=== PATIENT | female | born 1965 | race Hispanic/Latino ===

== ENCOUNTER 2018-01-13 14:37 | Inpatient (IN) | payer OTHER ==
--- OUTSIDE RECORDS SUMMARY | 2018-01-13 14:39 | XMS REPORT ---
:1965 Author Organization e[employer]Works Care Team Providers Name Role Phone Tony Carol Provider Role Unavailable Allergies, Adverse Reactions, Alerts Substance Reaction Event Type PCN Info Not Available Drug Allergy Procardia XL Info Not Available Drug Allergy Lisinopril Info Not Available Drug Allergy Problems Problem Type Condition Code Onset Dates Condition Status Problem Iron deficiency anemia D50.9 Active Problem Constipation K59.00 Active Problem DJD (degenerative joint disease) M19.90 Active Problem Intractable migraine with aura with G43.111 Active status migrainosus Problem Degeneration of lumbosacral M51.37 Active intervertebral disc Problem Primary insomnia F51.01 Active Problem Obesity E66.9 Active Problem Diabetic neuropathy E11.40 Active Problem Essential hypertension I10 Active Problem Hyperlipidemia E78.5 Active Assessment Pharyngitis, unspecified etiology J02.9 Active Problem Insomnia, unspecified G47.00 Active Problem shelter current use of insulin Z79.4 Active Problem Chronic back pain M54.9 Active Problem Type 2 diabetes mellitus without E11.9 Active complications Problem Depression with anxiety F41.8 Active Medications Medication Code Code Instructions Start End Status Dosage System Date Date [place] [facility] 80190989298 10-325 MG Active 1 tablet as Orally every 6 needed hrs Rosuvastatin [facility] 59237216393 10 MG Orally Active 1 tablet Calcium Once a day Invokana [facility] 87670053532 300 MG orally Active 1 tab once daily BEFORE BREAKFAST Duloxetine HCl [facility] 00860076456 60 MG Orally Active 1 capsule twice a day Topamax [facility] 14634976297 100 MG Orally Active 1 tablet Twice a day Carvedilol ND 77983763451 25 MG Orally Active as directed twice a day NovoLog Flexpen [facility] 64937382425 100U/ML Active INJECT 10 UNITS SUBCUTANEOUSLY THREE TIMES DAILY Metformin HCl [facility] 97208127916 1000 MG Orally Active 1 tablet with Twice a day meals Basaglar [facility] 78915841129 100 UNIT/ML Active 80 units as KwikPen Subcutaneous directed once a day ZyrTEC ND 0 Active not defined Clonidine HCl [facility] 47322858646 0.3 MG Orally Active 1 tablet three times a day Trazodone HCl [facility] 62916636303 50 MG Orally November Active 1 tablet at Once a day , bedtime as 2018 needed Linzess [facility] 63455675186 290MCG orally Active one tab once a day PredniSONE ND 51996667944 20 MG Orally December Active 1 tablet BID 2017 Results Name Result Date Reference Range Unit Abnormality Flag STREP A RAPID ----Result Negative [id number] Summary Purpose eClinicalWorks Submission
--- OUTSIDE RECORDS SUMMARY | 2018-01-13 14:39 | XMS REPORT ---
:1965 Author Organization [employer]Works Care Team Providers Name Role Phone Santana, Na Provider Role Unavailable Allergies, Adverse Reactions, Alerts Substance Reaction Event Type PCN Info Not Available Drug Allergy Procardia XL Info Not Available Drug Allergy Lisinopril Info Not Available Drug Allergy Problems Problem Type Condition Code Onset Dates Condition Status Problem Diabetic neuropathy E11.40 Active Problem Hyperlipidemia E78.5 Active Problem Obesity E66.9 Active Problem Cough productive of yellow sputum R05 Active Assessment Cough productive of yellow sputum R05 Active Problem Wheezing on inspiration R06.2 Active Assessment Wheezing on inspiration R06.2 Active Problem Acute bronchitis, unspecified J20.9 Active organism Problem Degeneration of lumbosacral M51.37 Active intervertebral disc Problem Essential hypertension I10 Active Problem Intractable migraine with aura with G43.111 Active status migrainosus Problem Primary insomnia F51.01 Active Problem Type 2 diabetes mellitus without E11.9 Active complications Problem Insomnia, unspecified G47.00 Active Assessment Acute bronchitis, unspecified J20.9 Active organism Problem Depression with anxiety F41.8 Active Problem Iron deficiency anemia D50.9 Active Problem longterm current use of insulin Z79.4 Active Problem DJD (degenerative joint disease) M19.90 Active Problem Chronic back pain M54.9 Active Problem Constipation K59.00 Active Medications Medication Code Code Instructions Start End Status Dosage System Date Clonidine HCl [facility] 06628700755 0.3 MG Orally Active 1 tablet three times a day Azithromycin [facility] 86313971648 500 MG Orally December Active as directed once a day 2017 PredniSONE [place] 15156009482 20 MG Orally December Active 1 tablet BID 2017 Duloxetine HCl [facility] 18959720611 60 MG Orally Active 1 capsule twice a day Basaglar [facility] 21069069527 100 UNIT/ML Active 80 units as KwikPen Subcutaneous directed once a day Doxycycline ND 31754819545 100 MG Orally December Active 1 capsule Hyclate twice a day 2017 [place] [facility] 98936905482 10-325 MG Active 1 tablet as Orally every 6 needed hrs Topamax [facility] 17169938258 100 MG Orally Active 1 tablet Twice a day Linzess [facility] 74907479866 290MCG orally Active one tab once a day Trazodone HCl [facility] 25478875424 50 MG Orally November Active 1 tablet at Once a day 22, bedtime as 2018 needed Metformin HCl [facility] 99680187363 1000 MG Orally Active 1 tablet with Twice a day meals Invokana [facility] 63070741961 300 MG orally Active 1 tab once daily BEFORE BREAKFAST Albuterol [facility] 01196666762 108 (90 Base) December Active 2 puffs as Sulfate MCG/ACT 10, needed Inhalation 2017 every 6 hrs ZyrTEC [facility] 09817347267 Active not defined Carvedilol [facility] 62525812953 25 MG Orally Active as directed twice a day NovoLog Flexpen [facility] 18651416575 100U/ML Active INJECT 10 UNITS SUBCUTANEOUSLY THREE TIMES DAILY Rosuvastatin [facility] 02129206811 10 MG Orally Active 1 tablet Calcium Once a day Results No Known Results Summary Purpose eClinicalWorks Submission
--- OUTSIDE RECORDS SUMMARY | 2018-01-13 14:39 | XMS REPORT ---
:1965 Author Organization [employer]Works Care Team Providers Name Role Phone Santana, Na Provider Role Unavailable Allergies No Known Allergies Problems Problem Type Condition Code Onset Dates Condition Status Problem Diabetic neuropathy E11.40 Active Problem Hyperlipidemia E78.5 Active Problem Obesity E66.9 Active Problem Cough productive of yellow sputum R05 Active Problem Wheezing on inspiration R06.2 Active Problem Acute bronchitis, unspecified J20.9 Active organism Problem Degeneration of lumbosacral M51.37 Active intervertebral disc Problem Essential hypertension I10 Active Problem Intractable migraine with aura with G43.111 Active status migrainosus Problem Primary insomnia F51.01 Active Problem Type 2 diabetes mellitus without E11.9 Active complications Problem Insomnia, unspecified G47.00 Active Problem Depression with anxiety F41.8 Active Problem Iron deficiency anemia D50.9 Active Problem terminal manager 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
--- OUTSIDE RECORDS SUMMARY | 2018-01-13 14:39 | XMS REPORT ---
:1965 Author Organization e[employer]Works Care Team Providers Name Role Phone Santana, Na Provider Role Unavailable Allergies, Adverse Reactions, Alerts Substance Reaction Event Type PCN Info Not Available Drug Allergy Procardia XL Info Not Available Drug Allergy Lisinopril Info Not Available Drug Allergy Problems Problem Type Condition Code Onset Dates Condition Status Assessment Intractable migraine with aura with G43.111 Active status migrainosus Problem Chronic back pain M54.9 Active Assessment Primary insomnia F51.01 Active Problem Depression with anxiety F41.8 Active Assessment Wrist pain, right M25.531 Active Problem Iron deficiency anemia D50.9 Active Problem Constipation K59.00 Active Problem DJD (degenerative joint disease) M19.90 Active Problem Intractable migraine with aura with G43.111 Active status migrainosus Problem Degeneration of lumbosacral M51.37 Active intervertebral disc Assessment Depression with anxiety F41.8 Active Assessment Constipation K59.00 Active Problem Primary insomnia F51.01 Active Assessment Diabetic neuropathy E11.40 Active Problem Obesity E66.9 Active Problem Diabetic neuropathy E11.40 Active Problem Essential hypertension I10 Active Problem Hyperlipidemia E78.5 Active Assessment snf current use of insulin Z79.4 Active Assessment Type 2 diabetes mellitus without E11.9 Active complications Assessment Hyperlipidemia E78.5 Active Assessment Essential hypertension I10 Active Problem Insomnia, unspecified G47.00 Active Problem snf current use of insulin Z79.4 Active Problem Type 2 diabetes mellitus without E11.9 Active complications Medications Medication Code Code Instructions Start End Status Dosage System Date Date Invokana [facility] 37830732420 300 mg Active not defined Trazodone HCl ND 18599126294 50 MG Orally November Active 1 tablet at Once a day 22, bedtime as [address] [facility] 75616398236 290MCG orally Active one tab once a day Clonidine HCl ND 74104840236 0.3 MG Orally Active 1 tablet three times a day Metformin HCl ND 08563641702 1000 MG Orally Active 1 tablet with Twice a day meals Topiramate [facility] 63366518093 100MG Active TAKE ONE TABLET BY MOUTH TWICE DAILY NovoLog Flexpen [facility] 48410357157 100U/ML Active INJECT 10 UNITS SUBCUTANEOUSLY THREE TIMES DAILY Basaglar [facility] 30749557887 100 UNIT/ML Active 80 units as KwikPen Subcutaneous directed once a day Carvedilol [facility] 22297973716 25 MG Orally Active as directed twice a day Invokana [facility] 17680208157 300 MG orally Active 1 tab once daily BEFORE BREAKFAST Topamax [facility] 29127726347 100 MG Orally Active 1 tablet Twice a day Duloxetine HCl [facility] 79956980388 60 MG Orally Active 1 capsule twice a day [place] [facility] 06770492049 10-325 MG Active 1 tablet as Orally every 6 needed [address] [facility] 06787585646 100 UNIT/ML Active not defined Subcutaneous Rosuvastatin [facility] 76466577789 10 MG Orally Active 1 tablet Calcium Once a day Results No Known Results Summary Purpose eClinicalWorks Submission
--- OUTSIDE RECORDS SUMMARY | 2018-01-13 14:39 | XMS REPORT ---
:1965 Author Organization eClinicalWorks Care Team Providers Name Role Phone Santana, Na Provider Role Unavailable Allergies, Adverse Reactions, Alerts Substance Reaction Event Type PCN Info Not Available Drug Allergy Procardia XL Info Not Available Drug Allergy Lisinopril Info Not Available Drug Allergy Problems Problem Type Condition Code Onset Dates Condition Status Problem longterm current use of insulin Z79.4 Active Problem Depression with anxiety F41.8 Active Problem Chronic back pain M54.9 Active Problem Hyperlipidemia E78.5 Active Assessment Screening mammogram, encounter for Z12.31 Active Problem Obesity E66.9 Active Assessment Chronic back pain M54.9 Active Problem Essential hypertension I10 Active Problem DJD (degenerative joint disease) M19.90 Active Problem Iron deficiency anemia D50.9 Active Problem Diabetic neuropathy E11.40 Active Problem Constipation K59.00 Active Assessment Depression with anxiety F41.8 Active Assessment Hyperlipidemia E78.5 Active Assessment Diabetic neuropathy E11.40 Active Assessment Constipation K59.00 Active Assessment 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 Problem Degeneration of lumbosacral M51.37 Active intervertebral disc Assessment Essential hypertension I10 Active Problem Type 2 diabetes mellitus without E11.9 Active complications Assessment Type 2 diabetes mellitus without E11.9 Active complications Problem Insomnia, unspecified G47.00 Active Medications Medication Code Code Instructions Start End Status Dosage System Date Duloxetine HCl [facility] 27923198492 60 MG Orally August Active 1 capsule Once a day 2017 [place] [facility] 63030491283 10-325 MG Orally Active 1 tablet as every 6 hrs needed Basaglar ND 34529201719 100 UNIT/ML August Active 80 units as KwikPen Subcutaneous once a day 2017 NovoLog [facility] 84661921385 100U/ML Active INJECT 10 UNITS Flexpen SUBCUTANEOUSLY THREE TIMES DAILY Linzess [facility] 79339752656 290MCG orally Sept Active one tab once a day 2017 Topiramate [facility] 89790331460 100MG Active TAKE ONE TABLET BY MOUTH TWICE DAILY Metformin HCl ND 45334563259 500 MG Orally Inactive 1 tablet with Twice a day meals Rosuvastatin [facility] 32923647403 10 MG Orally August Active 1 tablet Calcium Once a day 2017 Clonidine HCl [facility] 25127111286 0.3 MG Orally Active 1 tablet three times a day Carvedilol [facility] 19446844796 25 MG Orally August Active as directed twice a day 2017 Invokana [facility] 45697871605 300 mg Active not defined Metformin HCl [facility] 88549013432 1000 MG Orally August Active 1 tablet with Twice a day , 2017 Toujeo [facility] 33561412694 300u/ml Inactive not defined SoloStar subcutaneously once daily NovoLog [facility] 93818876385 100 UNIT/ML Active not defined Subcutaneous Topamax [facility] 88529520806 100 MG Orally Active 1 tablet Twice a day Invokana [facility] 62917690198 300 MG orally Sept Active 1 tab once daily 18, BEFORE BREAKFAST 2017 Results No Known Results Summary Purpose eClinicalWorks Submission
[2018-01-13 15:52] LABS: Absolute Lymphocytes (CBC) 2.8 K/uL (0.7-4.9); Absolute Neutrophil 8.8 K/uL (1.8-8.0); Basophils % 0.7 % (0-1.3); Eosinophils % 2.1 % (0-4.4); Hematocrit 35.5 % (36.0-45.0); Lymphocytes % 21.6 % (15.3-44.8); MCH 24.8 pg (27.0-35.0); MPV 9.1 fL (7.6-11.3); Monocytes % 7.7 % (3.3-12.3); RBC Red Blood Cell Count 4.55 M/uL (3.86-4.86)
[2018-01-13] MEDS ORDERED: ASPIRIN 81 MG CHEWABLE TABLET ONE (16:22)
[2018-01-13 16:26] LABS: Protime INR 0.98
[2018-01-13 16:27] LABS: ALT/SGPT 19 U/L (12-78); AST/SGOT 13 U/L (15-37); Alkaline Phosphatase 146 U/L (45-117); BUN Blood Urea Nitrogen 18 mg/dL (7-18); Bicarbonate 25 mmol/L (21-32); Bilirubin Direct < 0.1 mg/dL (0-0.2); Bilirubin Total 0.3 mg/dL (0.2-1.0); CKMB Creatine Kinase MB 1.1 ng/mL (0.3-3.6); Creatine Phosphokinase 41 U/L (26-192); Glucose Level 160 mg/dL (74-106); Magnesium 2.1 mg/dL (1.8-2.4); NT PRO-BNP 196 pg/mL (<125); Potassium 3.8 mmol/L (3.5-5.1); Protein, Total 6.6 g/dL (6.4-8.2); Sodium Level 141 mmol/L (136-145)
--- NOTE | 2018-01-13 16:27 | RAD REPORT ---
EXAM DESCRIPTION: RAD - Chest Pa And Lat (2 Views) - 01/13/2018 4:18 pm CLINICAL HISTORY: Cough;Chest pain Chest pain. COMPARISON: CHEST PA AND LAT 2 VIEW dated 06/04/2015; RAD CHEST PA AND LAT (2 VIEWS) dated 02/08/2013 FINDINGS: The lungs are clear. The heart is normal in size. No displaced fractures. IMPRESSION: No acute or concerning finding suspected.
[2018-01-13 16:43] LABS: Urine Blood NEGATIVE (NEG); Urine Glucose 2+ (NEG); Urine Protein NEGATIVE (NEG); Urine pH 7.5 (5.0-7.0)
--- NOTE | 2018-01-13 16:53 | EDPHYS ---
Physician Documentation [facility] Name: Luz Nick Age: 52 yrs Sex: Female : 1965 Arrival Date: 01/13/2018 Time: 14:41 Bed 23 Private MD: Irish Santana ED Physician Bo Kinney HPI: 01/13 15:30 This 52 yrs old Female presents to ER via Ambulatory with complaints of pm1 Possible Pneumonia. 15:30 The patient or guardian reports chest pain that is located primarily in the anterior pm1 aspect of right upper chest and anterior aspect of left upper chest. Onset: 2 week(s) ago. The pain does not radiate. Associated signs and symptoms: Pertinent positives: cough, shortness of breath, Pertinent negatives: abdominal pain, headache, nausea, near syncope, palpitations, vomiting. The chest pain is described as Tightness. Duration: The patient or guardian reports multiple episodes, that have now resolved, with exertion and occasionally while patient sitting at rest. Modifying factors: The symptoms are alleviated by rest, the symptoms are aggravated by exertion, walking. Severity of pain: in the emergency department the pain is a 0 / 10. The patient has not experienced similar symptoms in the past. The patient has been recently seen by a physician: the patient's primary care provider, Patient seen 1 week ago by her PCP and diagnosed with bronchitis. Patient was placed on abx therapy but without improvement. Patient was instructed to report to the ER for evalution when she contacted her PCP today to rule out the possibility of pneumonia. Patient has been having chest pain and cough for 2 weeks. Cough is dry. No fevers. Chest pain has been daily since onset two week ago. chest pain with shortness of breath with exertion improved with rest. Has been having chest pain without exertion and without coughing. Chest pain worse for the past 3-4 days. 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 - Social history:: Smoking status: Patient/guardian denies using tobacco, Patient/guardian denies using alcohol. - Ebola Screening: : Patient negative for fever greater than or equal to 101.5 degrees Fahrenheit, and additional compatible Ebola Virus Disease symptoms Patient denies exposure to infectious person Patient denies travel to an Ebola-affected area in the 21 days before illness onset. ROS: 15:30 Constitutional: Negative for fever, chills, and weight loss, Eyes: Negative for injury, pm1 pain, redness, and discharge, ENT: Negative for injury, pain, and discharge, Neck: Negative for injury, pain, and swelling. 15:30 Abdomen/GI: Negative for abdominal pain, nausea, vomiting, diarrhea, and constipation, Back: Negative for injury and pain, : Negative for injury, bleeding, discharge, and swelling, MS/Extremity: Negative for injury and deformity, Skin: Negative for injury, rash, and discoloration, Neuro: Negative for headache, weakness, numbness, tingling, and seizure. 15:30 Cardiovascular: Positive for chest pain, Negative for edema, orthopnea, palpitations. 15:30 Respiratory: Positive for shortness of breath, on exertion. Exam: 15:30 Constitutional: This is a well developed, well nourished patient who is awake, alert, pm1 and in no acute distress. Head/Face: Normocephalic, atraumatic. Eyes: Pupils equal round and reactive to light, extra-ocular motions intact. Lids and lashes normal. Conjunctiva and sclera are non-icteric and not injected. Cornea within normal limits. Periorbital areas with no swelling, redness, or edema. ENT: Nares patent. No nasal discharge, no septal abnormalities noted. Tympanic membranes are normal and external auditory canals are clear. Oropharynx with no redness, swelling, or masses, exudates, or evidence of obstruction, uvula midline. Mucous membranes moist. Neck: Trachea midline, no thyromegaly or masses palpated, and no cervical lymphadenopathy. Supple, full range of motion without nuchal rigidity, or vertebral point tenderness. No Meningismus. Chest/axilla: Normal chest wall appearance and motion. Nontender with no deformity. No lesions are appreciated. Cardiovascular: Regular rate and rhythm with a normal S1 and S2. No gallops, murmurs, or rubs. Normal PMI, no JVD. No pulse deficits. Respiratory: Lungs have equal breath sounds bilaterally, clear to auscultation and percussion. No rales, rhonchi or wheezes noted. No increased work of breathing, no retractions or nasal flaring. 15:30 Abdomen/GI: Soft, non-tender, with normal bowel sounds. No distension or tympany. No guarding or rebound. No evidence of tenderness throughout. Back: No spinal tenderness. No costovertebral tenderness. Full range of motion. Skin: Warm, dry with normal turgor. Normal color with no rashes, no lesions, and no evidence of cellulitis. MS/ Extremity: Pulses equal, no cyanosis. Neurovascular intact. Full, normal range of motion. 15:30 ECG was reviewed by the Attending Physician. ECG changes present from prior ECG. Prior ECG 02/08/2013 NSR, normal ECG. Changes are present in V!-V3. Q waves in V1 and V2 15:30 Neuro: Orientation: is normal, Motor: is normal, moves all fours, Sensation: is normal, no obvious gross deficits. Vital Signs: 14:49 BP 104 / 73; Pulse 77; Resp 18; Temp 98.1(O); Pulse Ox 96% on R/A; Weight 98.43 kg; hj Height 5 ft. 8 in. (172.72 cm); Pain 7/10; 15:07 BP 147 / 77; Pulse 86; Resp 18; Pulse Ox 100% on R/A; mg2 16:24 BP 133 / 83; Pulse 83; Resp 18; Pulse Ox 97% on R/A; Pain 0/10; mg2 14:49 Body Mass Index 32.99 (98.43 kg, 172.72 cm) MDM: 15:08 Patient medically screened. [facility] 16:47 Data reviewed: vital signs. Data interpreted: Pulse oximetry: on room air is 97 %. pm1 Interpretation: normal. Counseling: I had a detailed discussion with the patient and/or guardian regarding: the historical points, exam findings, and any diagnostic results supporting the discharge/admit diagnosis, lab results, radiology results, the need for further work-up and treatment in the hospital. 16:47 Physician consultation: Tasha Melgar MD was called at 16:48, was contacted at 16:48, pm1 regarding admission, patient's condition, and will see patient. 16:56 ED course: Patient with onset of chest pain 2 weeks ago. Patient has had chest pain pm1 daily since with onset. Chest pain comes and goes as a tightness across her chest. Chest pain occurs with light exertion, walking and has been occurring at rest also. Her chest pain has been worse for the past 3-4 days. Impression: NSTEMI vs unstable angina. 01/13 15:24 Order name: Basic Metabolic Panel; Complete Time: 16:30 pm01/13 15:24 Order name: CBC with Diff; Complete Time: 16:15 pm01/13 15:24 Order name: Ckmb; Complete Time: 16:30 pm01/13 15:24 Order name: CPK; Complete Time: 16:30 pm01/13 15:24 Order name: LFT's; Complete Time: 16:30 pm01/13 15:24 Order name: Magnesium; Complete Time: 16:30 pm01/13 15:24 Order name: NT PRO-BNP; Complete Time: 16:30 pm1 01/13 15:24 Order name: PT-INR; Complete Time: 16:35 pm1 01/13 15:24 Order name: Ptt, Activated; Complete Time: 16:35 pm01/13 15:24 Order name: Troponin (emerg Dept Use Only); Complete Time: 16:15 pm01/13 15:24 Order name: Blood Culture Adult (2) pm1 01/13 16:15 Order name: Urine Dipstick--Ancillary (enter results); Complete Time: 16:53 bd 01/13 16:57 Order name: Troponin I EDPA 01/13 16:57 Order name: Troponin I EDPA 01/13 14:51 Order name: EKG; Complete Time: 14:52 hj 01/13 15:24 Order name: Urine Test (obtain specimen); Complete Time: 16:13 pm01/13 15:24 Order name: Cardiac monitoring; Complete Time: 15:43 pm1 01/13 15:24 Order name: EKG - Nurse/Tech; Complete Time: 15:43 pm01/13 15:24 Order name: IV Saline Lock; Complete Time: 15:43 pm1 01/13 15:24 Order name: Labs collected and sent; Complete Time: 15:43 pm1 01/13 15:24 Order name: Chest Pa And Lat (2 Views) XRAY; Complete Time: 16:30 pm1 01/13 16:57 Order name: CONS Physician Consult [facility] 01/13 16:57 Order name: Heart Healthy [facility] 01/13 16:57 Order name: Troponin I [facility] 01/13 16:57 Order name: Troponin I [facility] 01/13 16:59 Order name: Echo with Doppler EDPA 01/13 16:59 Order name: Hemoglobin A1c EDPA 01/13 16:59 Order name: Lipid Profile EDPA 01/13 15:24 Order name: O2 Per Protocol; Complete Time: 15:43 pm1 01/13 15:24 Order name: O2 Sat Monitoring; Complete Time: 15:43 pm1 01/13 15:24 Order name: Urine Dipstick-Ancillary (obtain specimen); Complete Time: 16:13 pm1 Administered Medications: 16:24 Drug: Aspirin Chewable Tablet 324 mg Route: PO; mg2 16:59 Drug: Lovenox 1 mg/kg Route: Sub-Q; Site: right upper abdomen; mg2 Disposition: 01/13/18 16:52 Hospitalization ordered by Tasha Melgar for Inpatient Admission. Preliminary diagnosis is Non-ST elevation (NSTEMI) myocardial infarction. - Bed requested for Telemetry/MedSurg (Inpatient). - Status is Inpatient Admission. mg2 - Condition is Stable. - Problem is new. - Symptoms have improved. UTI on Admission? No Addendum: 01/19/2018 15:13 Co-signature as Attending Physician, Bo Kinney MD I agree with the assessment and c rodriguez plan of care. 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 Preliminary bd diagnosis is Non-ST elevation (NSTEMI) myocardial infarction. Bed requested for Telemetry/MedSurg (Inpatient). Status is Inpatient Admission. Condition is Stable. Problem is new. Symptoms have improved. UTI on Admission? No. pm1 17:41 17:10 01/13/2018 16:52 Hospitalization Ordered by Tasha Melgar MD for Inpatient mg2 Admission. Preliminary diagnosis is Non-ST elevation (NSTEMI) myocardial infarction. Bed requested for Telemetry/MedSurg (Inpatient). Status is Inpatient Admission. Condition is Stable. Problem is new. Symptoms have improved. UTI on Admission? No. bd
--- NOTE | 2018-01-13 16:53 | ER ---
Nurse's Notes [facility] Name: uLz Nick Age: 52 yrs Sex: Female : 1965 Arrival Date: 01/13/2018 Time: 14:41 Bed 23 Private MD: Irish Santana Diagnosis: Non-ST elevation (NSTEMI) myocardial infarction Presentation: 01/13 14:45 Presenting complaint: Patient states: last week i went to my PCP, told me i have hj bronchitis, Rx with antibiotics and almost half of it was taken, but im not getting better and its getting worse, my chest hurts and still have cough, non productive; denies fever and chills; reports headache;. Transition of care: patient was not received from another setting of care. Onset of symptoms was January 13, 2018. Risk Assessment: Do you want to hurt yourself or someone else? Patient reports no desire to harm self or others. Initial Sepsis Screen: Does the patient meet any 2 criteria? No. Patient's initial sepsis screen is negative. Does the patient have a suspected source of infection? No. Patient's initial sepsis screen is negative. Care prior to arrival: None. 14:45 Method Of Arrival: Ambulatory 14:45 Acuity: GORDY 3 hj Triage Assessment: 14:48 General: Appears in no apparent distress. uncomfortable, Behavior is calm, cooperative, hj appropriate for age. Pain: Complains of pain in chest. CRANE MAN: 14:50 LMP N/A - Post-menopause hj Historical: - Allergies: 14:48 No Known Allergies; hj - Home Meds: 14:48 Metformin Oral [Active]; Novolog Sub-Q [Active]; Coreg Oral [Active]; hj 14:49 Clonidine Oral [Active]; Invokana oral oral [Active]; Linzess oral oral [Active]; hj - PMHx: 14:48 Diabetes - NIDDM; Hypertension; Migraines; hj - PSHx: 14:48 ; Cholecystectomy; hj - Immunization history:: Adult Immunizations up to date. - Social history:: Smoking status: Patient/guardian denies using tobacco, Patient/guardian denies using alcohol. - Ebola Screening: : Patient negative for fever greater than or equal to 101.5 degrees Fahrenheit, and additional compatible Ebola Virus Disease symptoms Patient denies exposure to infectious person Patient denies travel to an Ebola-affected area in the 21 days before illness onset. Screenin:51 Abuse screen: Denies threats or abuse. Denies injuries from another. Nutritional hj screening: No deficits noted. Tuberculosis screening: No symptoms or risk factors identified. Fall Risk None identified. Assessment: 15:06 General: Appears in no apparent distress. comfortable, Behavior is calm, cooperative. mg2 Neuro: Level of Consciousness is awake, alert, obeys commands, Oriented to person, place, time. Cardiovascular: Capillary refill < 3 seconds Patient's skin is warm and dry. Respiratory: Reports cough that is. GI: No signs and/or symptoms were reported involving the gastrointestinal system. : No signs and/or symptoms were reported regarding the genitourinary system. EENT: No signs and/or symptoms were reported regarding the EENT system. Derm: Skin is intact, Skin is pink, warm \T\ dry. normal. Musculoskeletal: No signs and/or symptoms reported regarding the musculoskeletal system. 16:25 Reassessment: Patient appears in no apparent distress at this time. Patient and/or mg2 family updated on plan of care and expected duration. Pain level reassessed. Patient is alert, oriented x 3, equal unlabored respirations, skin warm/dry/pink. Vital Signs: 14:49 BP 104 / 73; Pulse 77; Resp 18; Temp 98.1(O); Pulse Ox 96% on R/A; Weight 98.43 kg; hj Height 5 ft. 8 in. (172.72 cm); Pain 7/10; 15:07 BP 147 / 77; Pulse 86; Resp 18; Pulse Ox 100% on R/A; mg2 16:24 BP 133 / 83; Pulse 83; Resp 18; Pulse Ox 97% on R/A; Pain 0/10; mg2 14:49 Body Mass Index 32.99 (98.43 kg, 172.72 cm) ED Course: 14:41 Patient arrived in ED. sb2 14:41 Irish Santana MD is Private Physician. sb2 14:47 Triage completed. hj 14:48 Arm band placed on left wrist. hj 14:51 Patient has correct armband on for positive identification. Bed in low position. Call light in reach. Side rails up X 1. Adult w/ patient. 15:05 EKG done, by blood bank technologist. reviewed by Pete Murguia MD. sm3 15:06 Alberto Castro, MANINDER is Primary Nurse. mg2 15:07 Jace Gr NP is PHCP. pm1 15:07 Bo Kinney MD is Attending Physician. pm1 15:48 Inserted saline lock: 20 gauge in right antecubital area, using aseptic technique. mg2 Blood collected. 16:14 Patient moved to radiology via wheelchair. mh1 16:15 Chest Pa And Lat (2 Views) XRAY In Process Unspecified. EDMS 16:15 X-ray completed. Patient tolerated procedure well. mh1 16:16 Patient moved back from radiology. mh1 16:52 Tasha Melgar MD is Hospitalizing Provider. pm1 17:24 No provider procedures requiring assistance completed. Patient admitted, IV remains in mg2 place. Administered Medications: 16:24 Drug: Aspirin Chewable Tablet 324 mg Route: PO; mg2 16:59 Drug: Lovenox 1 mg/kg Route: Sub-Q; Site: right upper abdomen; mg2 Outcome: 16:52 Decision to Hospitalize by Provider. pm1 17:22 Admitted to Tele accompanied by tech, via wheelchair, room 408, with chart, Report mg2 called to Nurse Betty 17:22 Condition: stable 17:22 Instructed on the need for admit, Demonstrated understanding of instructions. 17:41 Patient left the ED. mg2 Signatures: Dispatcher [employer] EDMS Martha Young 1 Norberto Silvestre RN RN hj Jace Gr NP SOLAR INSTALLATION SUPERVISOR pm1 Roxie Tao 2 Alberto Castro RN RN [facility] [place] Julissa Herzog sm3 Corrections: (The following items were deleted from the chart) 14:57 14:49 Pulse 77bpm; Resp 18bpm; Pulse Ox 96% RA; Temp 98.1F Oral; 98.43 kg; Height 5 ft. hj 8 in.; BMI: 32.9; Pain 7/10; hj
[2018-01-13] MEDS ORDERED: ACETAMINOPHEN 500 MG TAB PO PRN (16:55)
[2018-01-13] MEDS ORDERED: ONDANSETRON 4 MG/2 ML VIAL IV PRN (16:55)
[2018-01-13] MEDS ORDERED: ENOXAPARIN 100 MG/ML SYR SQ ONE (16:59)
--- NOTE | 2018-01-13 17:56 | P.HP ---
Certification for Inpatient Patient admitted to: Observation With expected LOS: <2 Midnights Patient will require the following post-hospital care: None Practitioner: I am a practitioner with admitting privileges, knowledge of patient current condition, hospital course, and medical plan of care. Services: Services provided to patient in accordance with Admission requirements found in Title 42 Section 412.3 of the Code of Federal Regulations Patient History Date of Service: 01/13/18 Primary Care Provider: Dr HWEATLEY Reason for admission: Chest pain History of Present Illness: This is a 52-year-old female with significant past medical history of hypertension, hyper lipidemia, diabetes, chronic back pain, anxiety, obesity, who presented to the ED complaining of having some chest pain. Patient stated that about 2 weeks ago patient's son was taken to the urgent care for strep throat where she also started having some scratchy throat at that time. Patient at that time was given steroids and was seen by her primary care doctor and had a throat swab done which was negative. Patient however was still given antibiotics due to having sore throat, cough and congestion. Patient however never had resolution of her symptoms and due to her coughing started having some chest pain and shortness of breath this morning. Patient stated that she called her primary care provider who told her to come to the ER to get it checked out for concerning pneumonia. Patient stated that the chest pain is in the chest area and is not radiating anywhere else. Patient also has some nasal congestion that was been going on for 2 weeks as well. No other complaints to offer at this time. Denies having any fever chills nausea vomiting. In the ER patient was found to have elevated troponin with nonspecific EKG changes and thus was referred over for admission for further care. Allergies Penicillins Allergy (Unverified 07/19/17 21:58) Unknown No Known Allergies Allergy (Uncoded 01/13/18 17:45) Unknown Home medications list reviewed: Yes - Past Medical/Surgical History Has patient received pneumonia vaccine in the past: No Diabetic: No -: HTN -: Diabetes -: Chronic back Pain -: HLP -: Anxiety -: Obesity Past Surgical History: Patient denies surgical history - Family History Family History: Reviewed- Non-Contributory - Social History Smoking Status: Unknown if ever smoked Review of Systems General: As per HPI Physical Examination - Vital Signs Temperature: 98.1 F Blood Pressure: 133/83 Pulse: 83 Respirations: 18 - Physical Exam General: Alert, In no apparent distress, Oriented x3, Obese HEENT: Atraumatic Neck: Supple Respiratory: Normal air movement, Expiratory wheezes, Inspiratory wheezes Cardiovascular: Regular rate/rhythm, Normal S1 S2 Gastrointestinal: Normal bowel sounds, No tenderness Musculoskeletal: No tenderness Integumentary: No rashes Neurological: Normal gait, Normal speech, Normal strength at 5/5 x4 extr, Normal tone, Normal affect Lymphatics: No axilla or inguinal lymphadenopathy - Studies Laboratory Data (last 24 hrs) 01/13/18 15:40: PT 11.6, INR 0.98, APTT 28.4 01/13/18 15:40: WBC 13.0 H, Hgb 11.3 L, Hct 35.5 L, Plt Count 235 01/13/18 15:40: Sodium 141, Potassium 3.8, BUN 18, Creatinine 0.80, Glucose 160 H, Magnesium 2.1, Total Bilirubin 0.3, AST 13 L, ALT 19, Alkaline Phosphatase 146 H Assessment and Plan - Problems (Diagnosis) (1) Chest pain Current Visit: Yes Status: Acute Plan: Atyical Chest pain. No EKG changes. elevated Troponin to 0.07. Most Likely Bronchitis however r/o ACS -Will repeat Troponin x 2 -Echo ordered -Cardiology consulted. -Will get Stress test if needed -ACS meds - BB, ASA, Statin Qualifiers: Chest pain type: other chest pain Qualified Code(s): R07.89 - Other chest pain; R07.8 - Other chest pain (2) HTN (hypertension) Current Visit: Yes Status: Chronic Plan: Restart Home medication Qualifiers: Hypertension type: essential hypertension Qualified Code(s): I10 - Essential (primary) hypertension (3) Hyperlipidemia Current Visit: Yes Status: Acute Plan: Restart Home medication Qualifiers: Hyperlipidemia type: mixed hyperlipidemia Qualified Code(s): E78.2 - Mixed hyperlipidemia (4) Diabetes Current Visit: Yes Status: Acute Plan: Restart Home medication Qualifiers: Diabetes mellitus type: type 2 Diabetes mellitus group home insulin use: with lamp stack developer use Diabetes mellitus complication status: without complication Qualified Code(s): E11.9 - Type 2 diabetes mellitus without complications; Z79.4 - retirement (current) use of insulin (5) Anxiety Current Visit: Yes Status: Acute Plan: Restart Home medication Discharge Plan: Home Plan to discharge in: 24 Hours - Advance Directives Does patient have a Living Will: No Does patient have a Durable POA for Healthcare: No - Code Status/Comfort Care Code Status Assessed: Yes Critical Care: No
[2018-01-13] MEDS ORDERED: IPRATROPIUM BROM 0.5MG/2.5ML NEB PRN (17:58)
[2018-01-13] MEDS ORDERED: ALBUTEROL 2.5 MG/3 ML NEB SOL NEB PRN (17:58)
[2018-01-13] MEDS: NA CHLORIDE 0.9% 1,000 ML IV SCH (18:25)
[2018-01-13] MEDS ORDERED: POTASSIUM CL SA 10 MEQ TAB PO ONE (20:00)
[2018-01-13] MEDS: INSULIN -REGULAR HUMAN 50 UNIT/0.5 ML ML SQ SCH (20:11)
[2018-01-13] MEDS: FLUTICASONE 50MCG NASAL SPRAY NAS SCH (20:47)
[2018-01-14 00:49] VITALS: BMI 33.0
[2018-01-14] MEDS: DULOXETINE 30 MG CAP PO SCH ×3 (01:50→20:30)
[2018-01-14] MEDS: CLONIDINE HCL 0.3 MG TAB PO SCH ×4 (01:50→20:30)
[2018-01-14] MEDS: NA CHLORIDE 0.9% 1,000 ML IV SCH (01:52)
[2018-01-14] MEDS ORDERED: METOPROLOL XL 25 MG TAB PO SCH (06:00)
--- NOTE | 2018-01-14 06:03 | EKG ---
Test Date: 2018-01-13 Test Time: 14:57:32 Electronic Device Monitor: AG/S MEASUREMENT RESULTS: Intervals: Rate: 78 HI: 166 QRSD: 64 QT: 364 QTc: 414 [place]: P: 22 HI: 166 QRS: 1 T: 71 INTERPRETIVE STATEMENTS: Normal sinus rhythm Septal infarct, age undetermined Abnormal ECG Compared to ECG 02/08/2013 09:39:07 Myocardial infarct finding now present Electronically Signed On 01-14-18 06:02:21 CDT by Andrei Davis
[2018-01-14] MEDS: INSULIN -REGULAR HUMAN 50 UNIT/0.5 ML ML SQ SCH ×4 (07:30→20:31)
[2018-01-14] MEDS: FLUTICASONE 50MCG NASAL SPRAY NAS SCH ×2 (09:00→20:31)
--- NOTE | 2018-01-14 11:20 | P.PN ---
Subjective Date of Service: 01/14/18 Primary Care Provider: Dr WHEATLEY Chief Complaint: Chest pain Patient seen and examined at bedside with RN. Chart reviewed. Case discussed with cardiology. Patient scheduled for heart catheterization tomorrow. Currently complains of no chest pain shortness of breath, nausea or vomiting. Review of Systems General: As per HPI Physical Examination - Vital Signs Temperature: 98.2 F Blood Pressure: 139/63 Pulse: 77 Respirations: 16 Pulse Ox (%): 98 - Physical Exam General: Alert, In no apparent distress HEENT: Atraumatic, PERRLA, EOMI Neck: Supple, JVD not distended Respiratory: Clear to auscultation bilaterally, Normal air movement Cardiovascular: Regular rate/rhythm, Normal S1 S2 Gastrointestinal: Normal bowel sounds, No tenderness Musculoskeletal: No tenderness Integumentary: No rashes Neurological: Normal speech, Normal tone, Normal affect Lymphatics: No axilla or inguinal lymphadenopathy - Studies Laboratory Data (last 24 hrs) 01/13/18 15:40: Triglycerides 253 H, Cholesterol 157, HDL Cholesterol 35 L, Cholesterol/HDL Ratio 4.49 01/13/18 15:40: PT 11.6, INR 0.98, APTT 28.4 01/13/18 15:40: WBC 13.0 H, Hgb 11.3 L, Hct 35.5 L, Plt Count 235 01/13/18 15:40: Sodium 141, Potassium 3.8, BUN 18, Creatinine 0.80, Glucose 160 H, Magnesium 2.1, Total Bilirubin 0.3, AST 13 L, ALT 19, Alkaline Phosphatase 146 H Medications List Reviewed: Yes Assessment & Plan - Problems (Diagnosis) (1) NSTEMI (non-ST elevated myocardial infarction) Current Visit: Yes Status: Acute Plan: Atyical Chest pain. Non specific EKG changes. elevated Troponin to 0.07 and today 0.86. -Cardiology consulted. Appreciated Reccs -Heart Cath any -Echo pending -ACS meds - BB, ASA, Statin, Lovenox (2) HTN (hypertension) Onset Date: 01/14/18 Current Visit: Yes Status: Chronic Plan: Restart Home medication Qualifiers: Hypertension type: essential hypertension Qualified Code(s): I10 - Essential (primary) hypertension (3) Hyperlipidemia Onset Date: 01/14/18 Current Visit: Yes Status: Acute Plan: Restart Home medication Qualifiers: Hyperlipidemia type: mixed hyperlipidemia Qualified Code(s): E78.2 - Mixed hyperlipidemia (4) Diabetes Onset Date: 01/14/18 Current Visit: Yes Status: Acute Plan: Restart Home medication Qualifiers: Diabetes mellitus type: type 2 Diabetes mellitus fci insulin use: with fci use Diabetes mellitus complication status: without complication Qualified Code(s): E11.9 - Type 2 diabetes mellitus without complications; Z79.4 - assisted (current) use of insulin (5) Anxiety Onset Date: 01/14/18 Current Visit: Yes Status: Acute Plan: Restart Home medication Discharge Plan: Home Plan to discharge in: 24 Hours - Code Status/Comfort Care Code Status Assessed: Yes Critical Care: No
[2018-01-14] MEDS: ASPIRIN 81 MG CHEWABLE TABLET PO SCH (11:36)
[2018-01-14] MEDS: ENOXAPARIN 100 MG/ML SYR SQ SCH ×2 (11:36→20:31)
--- NOTE | 2018-01-14 12:25 | CON ---
Chief Complaint: Chest pain. History Of Present Illness: Ms. Nick has had an uncomfortable feeling in her chest for several mon ths, but the last 2 weeks she notes that with exertion her chest gets tight and heavy. It was worse yesterday, so she came to the hospital. Chest pain was relieved in the emergency room. She received nitroglycerin, oxygen. She has also been on aspirin, not on Lovenox and overnight she has had an in crease in her troponins. It was abnormal when she came in at 0.07, but went up to 0.8. Her EKG is a bnormal but not suggestive of ST-elevation GA. The patient has no previous history of myocardial inf arction, stroke, or vascular disease. She uses no tobacco. She does inhale marijuana smoke. She rodriguez s longstanding diabetes more than 20 years, hypertension. Outpatient Medications: Insulin, Coreg, metformin, duloxetine, Linzess, clonidine, topiramate, Crest or, trazodone, hydrocodone. Allergies: SHE IS ALLERGIC TO PENICILLINS. Physical Examination: General: She is 5 feet 8 inches, 217 pounds. HEENT: Normal, although there is mild periorbital edema. No carotid bruit. Lungs: Clear. Heart: Reveals an S4 gallop, otherwise it is normal. Abdomen: Soft. Extremities: No edema, cyanosis, clubbing. Distal pulses palpable. Diagnostic Data: Electrocardiogram shows sinus rhythm, septal infarct, undetermined age that a diffe rence since 2012. Impression: My impression is that Ms. Nick has an acute coronary syndrome. Her treatment plan rick uld be cardiac cath. Her cardiac public works laborer is not functional today, so we will schedule cardiac cath for tomorrow. In the meantime, she will be on Lovenox, aspirin. We will withhold Plavix or Effient or Brilinta, just keep in mind that she may need bypass surgery and those drugs would delay the time she could have bypass surgery. Hopefully, she can be treated with a stent and we could load her with Effient or Plavix at the time i f need be. The patient seems to understand the procedure, its potential benefits, indications, risks . She agrees to proceed. SUSIE/SHON Voice ID: [id number] Report ID: [id number]
--- NOTE | 2018-01-14 14:07 | ECHO ---
HEIGHT: 5 ft 8 in WEIGHT: 217 lb 0 oz DATE OF STUDY: 01/14/[address]: Tasha Melgar MD 2-DIMENSIONAL: YES M.MODE: YES DOPPLER: YES COLOR FLOW: YES TDS: YES PORTABLE: DEFINITY: BUBBLE STUDY: DIAGNOSIS: CHEST PAIN CARDIAC HISTORY: CATHERIZATION: NO SURGERY: NO PROSTHETIC VALVE: NO PACEMAKER: NO MEASUREMENTS (cm) DIASTOLIC (NORMALS) SYSTOLIC (NORMALS) IVSd 1.0 (0.6-1.2) LA Diam 4.3 (1.9-4.0) LVEF 61% LVIDd 3.6 (3.5-5.7) LVIDs 2.5 (2.0-3.5) %FS 32% LVPWd 1.1 (0.6-1.2) Ao Diam 2.3 (2.0-3.7) 2 DIMENSIONAL ASSESSMENT: RIGHT ATRIUM: NORMAL LEFT ATRIUM: DILATED RIGHT VENTRICLE: NORMAL LEFT VENTRICLE: NORMAL TRICUSPID VALVE: NORMAL MITRAL VALVE: NORMAL PULMONIC VALVE: NORMAL AORTIC VALVE: NORMAL PERICARDIAL EFFUSION: NONE AORTIC ROOT: NORMAL LEFT VENTRICULAR WALL MOTION: NORMAL DOPPLER/COLOR FLOW: MILD MITRAL REGURGITATION. COMMENTS: NORMAL LEFT VENTRICULAR EJECTION FRACTION. DILATED LEFT ATRIUM. MITRAL REGURGITATION. TECHNOLOGIST: ALEJANDRA DURÁN.
[2018-01-14] MEDS ORDERED: DOCUSATE NA 100 MG CAP PO PRN (15:14)
[2018-01-14] MEDS: ROSUVASTATIN 10 MG TAB PO SCH (20:30)
[2018-01-14] MEDS: TOPIRAMATE 100 MG TAB PO SCH (20:31)
[2018-01-14] MEDS: CARVEDILOL 25 MG TAB PO SCH (20:31)
[2018-01-15] MEDS: ASPIRIN 81 MG CHEWABLE TABLET PO SCH (06:39)
[2018-01-15] MEDS: CARVEDILOL 25 MG TAB PO SCH ×2 (06:39→21:07)
[2018-01-15] MEDS ORDERED: HEPA 1000U/500MLS 1,000 UNIT/500 ML BAG IV ONE (06:53)
[2018-01-15] MEDS ORDERED: LIDOCAINE 1% MPF 2 ML AMPULE ONE (06:53)
[2018-01-15] MEDS ORDERED: NA CHLORIDE 0.9% 500 ML ONE (06:53)
[2018-01-15] MEDS ORDERED: MIDAZOLAM HCL 2 MG/2 ML INJ ONE ×2 (07:08→07:24)
[2018-01-15] MEDS ORDERED: ATROPINE SULF 1 MG/10 ML SYR IV ONE (07:08)
[2018-01-15] MEDS ORDERED: FENTANYL CITR 100 MCG/2 ML ONE (07:08)
[2018-01-15] MEDS ORDERED: NA CHLORIDE 0.9% 50 ML ONE (07:09)
[2018-01-15] MEDS: INSULIN -REGULAR HUMAN 50 UNIT/0.5 ML ML SQ SCH ×4 (07:30→21:00)
[2018-01-15] MEDS ORDERED: ASPIRIN 325 MG TAB ONE (08:08)
[2018-01-15] MEDS ORDERED: PRASUGREL (EFFIENT) 10 MG TAB ONE (08:08)
[2018-01-15] MEDS: CLONIDINE HCL 0.3 MG TAB PO SCH ×3 (09:00→21:11)
[2018-01-15] MEDS: ENOXAPARIN 100 MG/ML SYR SQ SCH (09:00)
[2018-01-15] MEDS: FLUTICASONE 50MCG NASAL SPRAY NAS SCH ×2 (09:45→21:07)
[2018-01-15] MEDS: TRAZODONE 50 MG TABLET PO SCH (09:46)
[2018-01-15] MEDS: DULOXETINE 30 MG CAP PO SCH ×2 (09:46→21:07)
[2018-01-15] MEDS: TOPIRAMATE 100 MG TAB PO SCH ×2 (09:46→21:07)
[2018-01-15 10:51] VITALS: O2SAT 99
[2018-01-15] MEDS ORDERED: ZOLPIDEM TARTRATE 10 MG TABLET PO PRN (12:16)
[2018-01-15] MEDS ORDERED: MORPHINE 4 MG/ML SYR IV PRN (12:17)
--- NOTE | 2018-01-15 14:47 | P.PN ---
Subjective Date of Service: 01/15/18 Primary Care Provider: Dr WHEATLEY Chief Complaint: Chest pain Subjective: No new changes (Patient seen and examined at bedside with nurse present. Labs reports reviewed. Patient is brought back from laborer general status post angiogram with angioplasty. Denies any chest pain or shortness of breath at this time.) <Emery Jara - Last Filed: 01/15/18 14:42> Date of Service: 01/15/18 <CkKelbybhargavi - Last Filed: 01/15/18 15:17> Review of Systems Unremarkable <Emery Jara - Last Filed: 01/15/18 14:42> Physical Examination - Vital Signs Temperature: 97.2 F Blood Pressure: 135/64 Pulse: 65 Respirations: 16 Pulse Ox (%): 99 - Physical Exam General: Alert, In no apparent distress, Oriented x3 HEENT: PERRLA, Mucous membr. moist/pink, EOMI Neck: Supple, 2+ carotid pulse no bruit, JVD not distended, No Thyromegaly Respiratory: Clear to auscultation bilaterally, Normal air movement Cardiovascular: No edema, Normal pulses, Regular rate/rhythm, Normal S1 S2, No gallops, No rubs, No murmurs Capillary refill: <2 Seconds Gastrointestinal: Normal bowel sounds, Soft and benign, Non-distended, No tenderness Musculoskeletal: No clubbing, No swelling, No contractures, No erythema, No tenderness, No warmth Integumentary: No rashes, No breakdown, No significant lesion Neurological: Normal speech, Normal strength at 5/5 x4 extr, Normal tone, Sensation intact, Cranial nerves 3-12 intact, Normal reflexes 2+, Normal affect - Studies Laboratory Tests 01/13/18 01/13/18 01/13/18 15:40 15:40 15:40 WBC 13.0 H RBC 4.55 Hgb 11.3 L Hct 35.5 L MCV 78.0 L D MCH 24.8 L MCHC 31.8 L RDW 17.0 H Plt Count 235 MPV 9.1 Neutrophils % 67.9 Lymphocytes % 21.6 Monocytes % 7.7 Eosinophils % 2.1 Basophils % 0.7 Absolute Neutrophils 8.8 H Absolute Lymphocytes 2.8 Absolute Monocytes 1.0 Absolute Eosinophils 0.3 Absolute Basophils 0.1 PT 11.6 INR 0.98 APTT 28.4 Sodium 141 Potassium 3.8 Chloride 108 H Carbon Dioxide 25 BUN 18 Creatinine 0.80 Estimated GFR 75 L Glucose 160 H POC Glucose Hemoglobin A1c Calcium 8.5 Magnesium 2.1 Total Bilirubin 0.3 Direct Bilirubin < 0.1 AST 13 L ALT 19 Alkaline Phosphatase 146 H Creatine Kinase 41 CK-MB (CK-2) 1.1 Rapid Troponin I Troponin I NT-Pro-B Natriuret Pep 196 H Serum Total Protein 6.6 Albumin 3.0 L Globulin 3.6 H Albumin/Globulin Ratio 0.8 L Triglycerides Cholesterol LDL Cholesterol, Calc HDL Cholesterol Cholesterol/HDL Ratio Urine pH Ur Specific [place] Urine Ketones Urine Blood Urine Nitrite Ur Leukocyte Esterase Urine Glucose Urine Total Protein 01/13/18 01/13/18 01/13/18 15:40 15:40 15:40 WBC RBC Hgb Hct MCV MCH MCHC RDW Plt Count MPV Neutrophils % Lymphocytes % Monocytes % Eosinophils % Basophils % Absolute Neutrophils Absolute Lymphocytes Absolute Monocytes Absolute Eosinophils Absolute Basophils PT INR APTT Sodium Potassium Chloride Carbon Dioxide BUN Creatinine Estimated GFR Glucose POC Glucose Hemoglobin A1c 7.2 H Calcium Magnesium Total Bilirubin Direct Bilirubin AST ALT Alkaline Phosphatase Creatine Kinase CK-MB (CK-2) Rapid Troponin I 0.07 H Troponin I NT-Pro-B Natriuret Pep Serum Total Protein Albumin Globulin Albumin/Globulin Ratio Triglycerides 253 H Cholesterol 157 LDL Cholesterol, Calc 71 HDL Cholesterol 35 L Cholesterol/HDL Ratio 4.49 Urine pH Ur Specific [place] Urine Ketones Urine Blood Urine Nitrite Ur Leukocyte Esterase Urine Glucose Urine Total Protein 01/13/18 01/13/18 01/14/18 16:15 19:23 04:56 WBC RBC Hgb Hct MCV MCH MCHC RDW Plt Count MPV Neutrophils % Lymphocytes % Monocytes % Eosinophils % Basophils % Absolute Neutrophils Absolute Lymphocytes Absolute Monocytes Absolute Eosinophils Absolute Basophils PT INR APTT Sodium Potassium Chloride Carbon Dioxide BUN Creatinine Estimated GFR Glucose POC Glucose 102 Hemoglobin A1c Calcium Magnesium Total Bilirubin Direct Bilirubin AST ALT Alkaline Phosphatase Creatine Kinase CK-MB (CK-2) Rapid Troponin I Troponin I 0.82 H* NT-Pro-B Natriuret Pep Serum Total Protein Albumin Globulin Albumin/Globulin Ratio Triglycerides Cholesterol LDL Cholesterol, Calc HDL Cholesterol Cholesterol/HDL Ratio Urine pH 7.5 H Ur Specific [place] 1.020 Urine Ketones Negative Urine Blood Negative Urine Nitrite Negative Ur Leukocyte Esterase Negative Urine Glucose 2+ H Urine Total Protein Negative 01/14/18 01/14/18 07:38 10:57 WBC RBC Hgb Hct MCV MCH MCHC RDW Plt Count MPV Neutrophils % Lymphocytes % Monocytes % Eosinophils % Basophils % Absolute Neutrophils Absolute Lymphocytes Absolute Monocytes Absolute Eosinophils Absolute Basophils PT INR APTT Sodium Potassium Chloride Carbon Dioxide BUN Creatinine Estimated GFR Glucose POC Glucose 152 H 162 H Hemoglobin A1c Calcium Magnesium Total Bilirubin Direct Bilirubin AST ALT Alkaline Phosphatase Creatine Kinase CK-MB (CK-2) Rapid Troponin I Troponin I NT-Pro-B Natriuret Pep Serum Total Protein Albumin Globulin Albumin/Globulin Ratio Triglycerides Cholesterol LDL Cholesterol, Calc HDL Cholesterol Cholesterol/HDL Ratio Urine pH Ur Specific [place] Urine Ketones Urine Blood Urine Nitrite Ur Leukocyte Esterase Urine Glucose Urine Total Protein Medications List Reviewed: Yes <Emery Jara - Last Filed: 01/15/18 14:42> Assessment And Plan - Current Problems (Diagnosis) (1) Diabetes Onset Date: 01/14/18 Current Visit: Yes Status: Acute Qualifiers: Diabetes mellitus type: type 2 Diabetes mellitus longterm insulin use: with longterm use Diabetes mellitus complication status: without complication Qualified Code(s): E11.9 - Type 2 diabetes mellitus without complications; Z79.4 - senior care (current) use of insulin (2) Hyperlipidemia Onset Date: 01/14/18 Current Visit: Yes Status: Acute Qualifiers: Hyperlipidemia type: mixed hyperlipidemia Qualified Code(s): E78.2 - Mixed hyperlipidemia (3) NSTEMI (non-ST elevated myocardial infarction) Current Visit: Yes Status: Acute (4) HTN (hypertension) Onset Date: 01/14/18 Current Visit: Yes Status: Chronic Qualifiers: Hypertension type: essential hypertension Qualified Code(s): I10 - Essential (primary) hypertension - Plan Patient is status post angioplasty. The patient was brought back to the room in stable condition. Currently denies any chest pain or shortness of breath. Access was at the right groin. No pain no bleeding. Cardiology placed a stent in the circumflex. Will continue to monitor patient for 24 hr including labs and vital signs the patient is stable and feeling well tomorrow is cleared to go home. Discharge Plan: Home Plan to discharge in: 24 Hours - Code Status/Comfort Care Code Status Assessed: Yes Code Status: Full Code <Emery Jara - Last Filed: 01/15/18 14:42> - Plan Case discussed with PA. Agree with above plan case discussed w collar tailor Dr. Maradiaga. Stent placed today in circ. DC home in am if continues to improve <Christi Stover - Last Filed: 01/15/18 15:17>
[2018-01-15] MEDS: ROSUVASTATIN 10 MG TAB PO SCH (21:06)
[2018-01-16 06:46] LABS: Absolute Lymphocytes (CBC) 2.7 K/uL (0.7-4.9); Absolute Monocytes 0.7 K/uL (0.1-1.3); Absolute Neutrophil 5.8 K/uL (1.8-8.0); Basophils % 0.6 % (0-1.3); Eosinophils % 2.6 % (0-4.4); Hematocrit 32.6 % (36.0-45.0); Lymphocytes % 28.1 % (15.3-44.8); MCH 25.7 pg (27.0-35.0); MCV 78.2 fL (80-100); MPV 9.6 fL (7.6-11.3); Monocytes % 7.8 % (3.3-12.3); RBC Red Blood Cell Count 4.17 M/uL (3.86-4.86)
[2018-01-16 06:52] LABS: Potassium 4.1 mmol/L (3.5-5.1)
[2018-01-16] MEDS: INSULIN -REGULAR HUMAN 50 UNIT/0.5 ML ML SQ SCH (07:30)
[2018-01-16] MEDS: TRAZODONE 50 MG TABLET PO SCH (08:12)
[2018-01-16] MEDS: CARVEDILOL 25 MG TAB PO SCH (08:12)
[2018-01-16] MEDS: DULOXETINE 30 MG CAP PO SCH (08:12)
[2018-01-16] MEDS: ASPIRIN 81 MG CHEWABLE TABLET PO SCH (08:12)
[2018-01-16] MEDS: FLUTICASONE 50MCG NASAL SPRAY NAS SCH (08:13)
[2018-01-16] MEDS: TOPIRAMATE 100 MG TAB PO SCH (08:13)
[2018-01-16 08:14] VITALS: BP 137/72
[2018-01-16] MEDS: CLONIDINE HCL 0.3 MG TAB PO SCH (08:18)
[2018-01-16 08:40] VITALS: TEMP 98.5
[2018-01-16] MEDS ORDERED: PRASUGREL (EFFIENT) 10 MG TAB PO SCH (09:00)
--- NOTE | 2018-01-16 18:50 | EKG ---
Test Date: 2018-01-16 Test Time: 10:05:46 Covering Machine Tender: ENA MEASUREMENT RESULTS: Intervals: Rate: 72 MT: 164 QRSD: 68 QT: 400 QTc: 438 [place]: P: 5 MT: 164 QRS: 23 T: 88 INTERPRETIVE STATEMENTS: Normal sinus rhythm Normal ECG Compared to ECG 01/13/2018 14:57:32 Myocardial infarct finding no longer present Electronically Signed On 01-16-18 18:47:[address]iss Maradiaga
--- NOTE | 2018-01-17 00:29 | PN ---
Date of Progress Note: 01/16/2018 History: Ms. Nick is 52, had come in with acute coronary artery syndrome, had a catheterization on 01/15/2018 by me showing some [id number] diagonal disease, but she had 80-90% proximal circumf ron, which was stented successfully with 3.0 x 16 Synergy stent and postdilated with an emerge balloo n with 0% residual. Tolerated the procedure well. Overnight, had no complications. Groin is intact . No telemetry changes. I will send her home today on aspirin, Effient, statin, beta-blockers. I dusty gómez like to see her in the office in 2 weeks. АЛЕКСАНДР/SHON Voice ID: [id number] Report ID: [id number]
--- NOTE | 2018-01-17 03:17 | OP ---
Date of Procedure: 01/15/2018 Surgeon: Driss Maradiaga MD Test Driver: Sierra Lawson. She will stay overnight and go home in the morning on aspirin, statin, Effient, and a beta-jose. Procedure: Left heart catheterization, selective coronary arteriogram, and an angioplasty and stent of the circumflex. Indication: Ms. Nick is 52 years old. She came in with acute coronary syndrome, was seen by Dr. Nhan parikh on 01/14/2018, and scheduled for 01/15/2018. Procedure In Detail: She was prepped and draped in the routine sterile fashion in the slab stripper and w as given 2 mg of Versed for IV sedation and 50 mg of fentanyl. A 6-Bengali sheath was introduced in t he right common femoral artery. A diagnostic catheterization was performed using [place] catheters, which showed a normal RCA and 90% proximal circumflex, 50% in the first diagonal, fairly normal LAD. An XB3.0 with side hole was used for cannulation of the left main. A [place] wire was used to cross the circumflex lesion. A primary stent would use with a 3.0 x 16 Synergy stent. There were some res idual stenoses left, so I postdilated lesion with a 3.0 x 15 Emerge at 14 atmosphere with 0% residual . The patient tolerated the procedure well. There were no complications. Blood loss was 5 cc. The patient received Angiomax, Effient, and aspirin during the procedure. Total conscious sedation was 45 minutes. NB/MODL Voice ID: [id number] Report ID: [id number]
--- NOTE | 2018-02-05 07:29 | P.DS ---
Discharge Date: 01/16/18 Primary Care Provider: Dr WHEATLEY Disposition: ROUTINE DISCHARGE Discharge Condition: GOOD Reason for Admission: Chest pain Consultations: Cardiology Brief History of Present Illness: This is a 52-year-old female with significant past medical history of hypertension, hyper lipidemia, diabetes, chronic back pain, anxiety, obesity, who presented to the ED complaining of having some chest pain. Patient stated that about 2 weeks ago patient's son was taken to the urgent care for strep throat where she also started having some scratchy throat at that time. Patient at that time was given steroids and was seen by her primary care doctor and had a throat swab done which was negative. Patient however was still given antibiotics due to having sore throat, cough and congestion. Patient however never had resolution of her symptoms and due to her coughing started having some chest pain and shortness of breath this morning. Patient stated that she called her primary care provider who told her to come to the ER to get it checked out for concerning pneumonia. Patient stated that the chest pain is in the chest area and is not radiating anywhere else. Patient also has some nasal congestion that was been going on for 2 weeks as well. No other complaints to offer at this time. Denies having any fever chills nausea vomiting. In the ER patient was found to have elevated troponin with nonspecific EKG changes and thus was referred over for admission for further care. Hospital Course: A diagnostic catheterization which showed a normal RCA and 90% proximal circumflex, 50% in the first diagonal, fairly normal LAD. The circumflex lesion was stented. There were some residual stenoses left, so it was dilated. The post-dilated lesion had a 0% residual lesion. The patient tolerated the procedure well. There were no complications. Patient was discharged the following day in stable condition with meds as listed. Clinically patient is doing well with no new complaints. Vital Signs/Physical Exam: Temp Pulse Resp BP Pulse Ox 98.5 F 66 16 137/72 100 01/16/18 08:00 01/16/18 08:18 01/16/18 08:00 01/16/18 08:18 01/16/18 08:00 General: Alert, In no apparent distress, Oriented x3 Laboratory Data at Discharge: WBC 9.5 K/uL (4.3-10.9) D 01/16/18 05:39 Hgb 10.7 g/dL (12.0-15.0) L 01/16/18 05:39 Hct 32.6 % (36.0-45.0) L 01/16/18 05:39 Plt Count 208 K/uL (152-406) 01/16/18 05:39 PT 11.6 SECONDS (9.5-12.5) 01/13/18 15:40 INR 0.98 01/13/18 15:40 APTT 28.4 SECONDS (24.3-36.9) 01/13/18 15:40 Sodium 143 mmol/L (136-145) 01/16/18 05:39 Potassium 4.1 mmol/L (3.5-5.1) 01/16/18 05:39 BUN 15 mg/dL (7-18) 01/16/18 05:39 Creatinine 0.70 mg/dL (0.55-1.3) 01/16/18 05:39 Glucose 167 mg/dL (74-106) H 01/16/18 05:39 Magnesium 2.1 mg/dL (1.8-2.4) 01/13/18 15:40 Total Bilirubin 0.3 mg/dL (0.2-1.0) 01/13/18 15:40 AST 13 U/L (15-37) L 01/13/18 15:40 ALT 19 U/L (12-78) 01/13/18 15:40 Alkaline Phosphatase 146 U/L (45-117) H 01/13/18 15:40 Troponin I 1.21 ng/mL (0.0-0.045) H* 01/15/18 04:04 Triglycerides 253 mg/dL (<150) H 01/13/18 15:40 Cholesterol 157 mg/dL (<200) 01/13/18 15:40 HDL Cholesterol 35 mg/dL (40-60) L 01/13/18 15:40 Cholesterol/HDL Ratio 4.49 01/13/18 15:40 Home Medications: Carvedilol 25 mg PO BID 01/13/18 Clonidine HCl [Catapres] 0.3 mg PO TID 01/13/18 Duloxetine HCl [Cymbalta] 60 mg PO BID 01/13/18 Hydrocodone/Acetaminophen [Hydrocodone-Acetamin 10-325 mg] 1 each PO Q6H PRN Insulin Aspart [Novolog Flexpen] 8 units SQ SEECOM 01/13/18 Insulin Glargine,Hum.rec.anlog [Basaglar Kwikpen U-100] 70 unit SQ DAILY Linaclotide [Linzess] 290 mcg PO DAILY 01/13/18 Metformin HCl 1,000 mg PO BID 01/13/18 Rosuvastatin [Crestor*] 10 mg PO BEDTIME 01/13/18 Topiramate 100 mg PO BID 01/13/18 Trazodone [Desyrel*] 50 mg PO DAILY 01/13/18 Aspirin Chewable [Aspirin Chewable*] 81 mg PO DAILY #90 tab.chew 01/16/18 Prasugrel Hydrochloride [Effient*] 10 mg PO DAILY #90 tab 01/16/18 New Medications: Aspirin Chewable [Aspirin Chewable*] 81 mg PO DAILY #90 tab.chew Prasugrel Hydrochloride [Effient*] 10 mg PO DAILY #90 tab Patient Discharge Instructions: OK TO DC IV AND DC HOME. FOLLOW-UP WITH PRIMARY CARE PROVIDER IN 1-2 WEEKS. FOLLOW-UP WITH CARDIOLOGY IN 1-2 WEEKS. RETURN TO THE ER IF SYMPTOMS WORSENS. HOLD METFORMIN FOR 24-48HRS AFTER DISCHARGE. CALL or TEXT DR. JARAMILLO AT [phone] IF ANY QUESTIONS REGARDING HOSPITAL STAY. PLEASE CALL THE FLOOR AT [phone] IF ANY MEDICATION OR NURSING QUESTIONS. Diet: AHA Activity: Fall precautions Followup: Andrei Davis MD [ACTIVE - CAN ADMIT] - Time spent managing pt's care (in minutes): 30
== END 2018-01-16 10:42 | disposition home or self-care (01) | DRG 247 ==
LOC: ER 14:37 → ERHOLD 16:56 → 4TH 17:23 → OBSVTOIN 01-14 11:25
PROVIDERS: ADMIT Family Medicine; ATTEND Hospitalist
PROC: 027034Z Dilation of Coronary Artery, One Artery with Drug-eluting Intraluminal Device, Percutaneous Approach (ICD-10-PCS; principal; 2018-01-15)
PROC: 4A023N7 Measurement of Cardiac Sampling and Pressure, Left Heart, Percutaneous Approach (ICD-10-PCS; 2018-01-15)
PROC: B2111ZZ Fluoroscopy of Multiple Coronary Arteries using Low Osmolar Contrast (ICD-10-PCS; 2018-01-15)
DX: I21.4 Non-ST elevation (NSTEMI) myocardial infarction (principal); I25.10 Atherosclerotic heart disease of native coronary artery without angina pectoris; E11.9 Type 2 diabetes mellitus without complications; E78.2 Mixed hyperlipidemia; I10 Essential (primary) hypertension; F41.9 Anxiety disorder, unspecified; M54.9 Dorsalgia, unspecified; G89.29 Other chronic pain; E66.9 Obesity, unspecified; Z68.32 Body mass index [BMI] 32.0-32.9, adult; Z79.4 Long term (current) use of insulin; Z88.0 Allergy status to penicillin
CPT/HCPCS: 36415; 71046; 80048; 80061; 80076; 81003; 82550; 82553; 82962; 83036; 83735; 83880; 84484; 85025; 85347; 85610; 85730; 87040; 93005; 93306; 93454; 96372; 99285; C1725; C1760; C1893; C9600; G0378; J0583; J1650; J2001; J2250; J3010; J7030

== ENCOUNTER 2019-01-26 17:33 | Emergency (ER) | payer OTHER ==
--- OUTSIDE RECORDS SUMMARY | 2019-01-26 17:36 | XMS REPORT ---
:1965 Author Organization [facility] Address [address] [place] [address] [address]. [address] [place] [address] Care Team Providers Name Role Phone Unavailable Unavailable Unavailable Problems This patient has no known problems. Allergies, Adverse Reactions, Alerts This patient has no known allergies or adverse reactions. Medications This patient has no known medications.
--- OUTSIDE RECORDS SUMMARY | 2019-01-26 17:36 | XMS REPORT ---
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
--- OUTSIDE RECORDS SUMMARY | 2019-01-26 17:37 | XMS REPORT ---
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 type 2 diabetes mellitus Problem DJD (degenerative joint disease) M19.90 Active Problem 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 incontinence Problem Iron deficiency anemia D50.9 Active Problem Depression with anxiety F41.8 Active Problem Open wound of skin T14.8XXA Active Problem Acute bronchitis, unspecified J20.9 Active organism Problem Cough productive of yellow sputum R05 Active Problem NSTEMI (non-ST elevated myocardial I21.4 Active infarction) Problem Stented coronary artery Z95.5 Active Problem Obesity E66.9 Active Problem Hyperlipidemia E78.5 Active Problem Constipation K59.00 Active Problem Diabetic neuropathy E11.40 Active Problem Insomnia, unspecified G47.00 Active Problem longterm current use of insulin Z79.4 Active Assessment Open wound of skin T14.8XXA Active Problem Essential hypertension I10 Active Problem Chronic back pain M54.9 Active Problem Type 2 diabetes mellitus without E11.9 Active complications Problem Degeneration of lumbosacral M51.37 Active intervertebral disc Medications Medication Code Code Instructions Start End Status Dosage System Date Date NovoLog Flexpen ND 21822477738 100U/ML Active INJECT 10 UNITS SUBCUTANEOUSLY THREE TIMES DAILY Basaglar ND 12925469548 100 UNIT/ML Active 80 units as KwikPen Subcutaneous directed once a day [place] ND 48285726816 10-325 MG Active 1 tablet as Orally every 6 needed hrs Duloxetine HCl ND 44930795981 60 MG Orally Active 1 capsule twice a day Metformin HCl ND 84924336563 1000 MG Orally Active 1 tablet with Twice a day meals Carvedilol [facility] 69554556367 25 MG Orally Active as directed twice a day Rosuvastatin [facility] 85744599006 10 MG Orally Active 1 tablet Calcium Once a day Valium ND 70570060899 2 MG Orally August Active 1 tablet as Once a day 08, needed 2019 ZyrTEC [facility] 28001329050 Active not defined Albuterol [facility] 42713345247 108 (90 Base) December Active 2 puffs as Sulfate MCG/ACT 10, needed Inhalation 2017 every 6 hrs Topamax [facility] 65575837001 100 MG Orally Active 1 tablet Twice a day Clonidine HCl [facility] 06075154803 0.3 MG Orally Active 1 tablet three times a day Prasugrel HCl [facility] 06652773121 10 MG Orally Active as directed Mupirocin [facility] 53872728652 2 % Externally December Active 1 application to BID 15, 20, affected area 2018 2018 Duloxetine HCl [facility] 44833281928 60 MG Orally Active 1 capsule twice a day Results No Known Results Summary Purpose eClinicalWorks Submission
--- OUTSIDE RECORDS SUMMARY | 2019-01-26 17:37 | XMS REPORT ---
:1965 Author Organization eClinicalWorks Care Team Providers Name Role Phone Scarlet Meeks Provider Role Unavailable Allergies, Adverse Reactions, Alerts Substance Reaction Event Type PCN swelling/rash Drug Allergy Problems Problem Type Condition Code Onset Dates Condition Status Assessment Wound discharge T14.8XXA Active Problem Degeneration of lumbosacral M51.37 Active intervertebral disc Problem Intractable migraine with aura G43.111 Active with status migrainosus Problem Depression with anxiety F41.8 Active Problem Primary insomnia F51.01 Active Problem Cough productive of yellow sputum R05 Active Problem Wheezing on inspiration R06.2 Active Problem Open wound of skin T14.8XXA Active Problem Diabetic 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 Active with type 2 diabetes mellitus Problem Constipation K59.00 Active Problem DJD (degenerative joint disease) M19.90 Active Problem Wound discharge T14.8XXA Active Problem Iron deficiency anemia D50.9 Active Problem Stented coronary artery Z95.5 Active Problem Acute bronchitis, unspecified J20.9 Active organism Problem 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 incontinence Problem NSTEMI (non-ST elevated myocardial I21.4 Active infarction) Problem Hyperlipidemia E78.5 Active Problem Essential hypertension I10 Active Problem Diabetic neuropathy E11.40 Active Problem Obesity E66.9 Active 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 Problem Chronic back pain M54.9 Active Problem Type 2 diabetes mellitus without E11.9 Active complications Problem Insomnia, unspecified G47.00 Active Medications Medication Code Code Instructions Start End Status Dosage System Date Date Topamax [facility] 54827722602 100 MG Orally Active 1 tablet Twice a day [place] [facility] 03005684663 10-325 MG Active 1 tablet as Orally every 6 needed hrs Clonidine HCl ND 20788726116 0.3 MG Orally Active 1 tablet three times a day Duloxetine HCl [facility] 69784143108 60 MG Orally Active 1 capsule twice a day Duloxetine HCl ND 57637946365 60 MG Orally Active 1 capsule twice a day Prasugrel HCl ND 47991620454 10 MG Orally Active as directed Tramadol HCl NDC 0 Active not defined Aspirin [facility] [address]-02 Active not defined Carvedilol [facility] 69928225092 25 MG Orally Active as directed twice a day Valium [facility] 08924378504 2 MG Orally August Active 1 tablet as Once a day 08, needed 2019 Basaglar [facility] 65233559851 100 UNIT/ML Active 80 units as KwikPen Subcutaneous directed once a day Rosuvastatin [facility] 44457110246 10 MG Orally Active 1 tablet Calcium Once a day NovoLog [facility] 89857254436 100U/ML Active INJECT 10 UNITS Flexpen SUBCUTANEOUSLY THREE TIMES DAILY Metformin HCl [facility] 51920215408 1000 MG Orally Active 1 tablet with Twice a day meals Linzess ND 0 Active not defined ZyrTEC [facility] 50983240011 Active not defined Albuterol [facility] 62816903246 108 (90 Base) December Active 2 puffs as Sulfate MCG/ACT 10, needed Inhalation 2017 every 6 hrs Mupirocin [facility] 61084652155 2 % Externally December Active 1 application to BID 15, 20, affected area 2018 2019 Results No Known Results Summary Purpose eClinicalWorks Submission
--- OUTSIDE RECORDS SUMMARY | 2019-01-26 17:37 | XMS REPORT ---
:1965 Author Organization eClinicalWorks Care Team Providers Name Role Phone Santana, Na Provider Role Unavailable Allergies, Adverse Reactions, Alerts Substance Reaction Event Type PCN Info Not Available Drug Allergy Procardia XL Info Not Available Drug Allergy Lisinopril Info Not Available Drug Allergy Problems Problem Type Condition Code Onset Dates Condition Status Assessment Hypoglycemia E16.2 Active Assessment Hyperlipidemia E78.5 Active Assessment Primary insomnia F51.01 Active Assessment Essential hypertension I10 Active Assessment Constipation K59.00 Active Assessment Depression with anxiety F41.8 Active Problem Type 2 diabetes mellitus without E11.9 Active complications Assessment alf current use of insulin Z79.4 Active Problem Insomnia, unspecified G47.00 Active Assessment Stented coronary artery Z95.5 Active 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 Problem Degeneration of lumbosacral M51.37 Active intervertebral disc Problem Chronic back pain M54.9 Active Problem NSTEMI (non-ST elevated myocardial I21.4 Active infarction) Problem Acute bronchitis, unspecified J20.9 Active organism Assessment NSTEMI (non-ST elevated myocardial I21.4 Active infarction) Problem Stented coronary artery Z95.5 Active Assessment Type 2 diabetes mellitus without E11.9 Active complications Problem Primary insomnia F51.01 Active Problem Intractable migraine with aura with G43.111 Active status migrainosus Problem Cough productive of yellow sputum R05 Active Problem Wheezing on inspiration R06.2 Active Problem DJD (degenerative joint disease) M19.90 Active Problem Constipation K59.00 Active Problem Depression with anxiety F41.8 Active Problem Iron deficiency anemia D50.9 Active Problem Hyperlipidemia E78.5 Active Problem Essential hypertension I10 Active Problem Diabetic neuropathy E11.40 Active Problem Obesity E66.9 Active Medications Medication Code Code Instructions Start End Status Dosage System Date Date Movantik [facility] 04862142501 25 MG Orally Feb 02Apr Active 1 tablet in the Once a day 2017 09, morning 1 hour 2017 prior to meals or 2 hours after meals Trazodone HCl [facility] 78413536628 50 MG Orally Inactive 1 tablet at Once a day bedtime as needed Prasugrel HCl [facility] 54387712737 10 MG Orally Feb 02, Active as directed 2017 Topamax ND 72317956102 100 MG Orally Active 1 tablet Twice a day [place] [facility] 32379690665 10-325 MG Active 1 tablet as Orally every 6 needed hrs Linzess [facility] 95358948827 145 MCG Orally December Active 1 capsule Once a day 2017 Doxycycline ND 34550693628 100 MG Orally December Active 1 capsule Hyclate twice a day 2017 Mirtazapine [facility] 03075839169 15 MG Orally Feb 02, Active 1 tablet at Once a day 2017 bedtime Duloxetine HCl [facility] 43183751847 60 MG Orally Active 1 capsule twice a day NovoLog [facility] 71517661665 100U/ML Active INJECT 10 UNITS Flexpen SUBCUTANEOUSLY THREE TIMES DAILY Carvedilol ND 29094909854 25 MG Orally Active as directed twice a day Clonidine HCl [facility] 99922995752 0.3 MG Orally Active 1 tablet three times a day ZyrTEC [facility] 18081506621 Active not defined Albuterol [facility] 52634816320 108 (90 Base) December Active 2 puffs as Sulfate MCG/ACT 10, needed Inhalation 2017 every 6 hrs Invokana [facility] 60568401462 300 MG orally August Active 1 tab once daily , BEFORE 2018 BREAKFAST Metformin HCl [facility] 86826007266 1000 MG Orally Active 1 tablet with Twice a day meals Azithromycin [facility] 81843688394 500 MG Orally December Active as directed once a day 2017 Linzess [facility] 98743343878 290MCG orally Jan Inactive one tab once a day 2017 Rosuvastatin [facility] 18174268929 10 MG Orally Active 1 tablet Calcium Once a day Basaglar [facility] 68553517624 100 UNIT/ML Active 80 units as KwikPen Subcutaneous directed once a day PredniSONE ND 85816949810 20 MG Orally December Active 1 tablet BID 2017 Results No Known Results Summary Purpose eClinicalWorks Submission
--- OUTSIDE RECORDS SUMMARY | 2019-01-26 17:37 | XMS REPORT ---
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 Active with type 2 diabetes mellitus Assessment Primary insomnia F51.01 Active Assessment Intractable migraine with aura with G43.111 Active status migrainosus Assessment NSTEMI (non-ST elevated myocardial I21.4 Active infarction) Assessment Hyperlipidemia E78.5 Active Assessment Essential hypertension I10 Active Assessment Constipation K59.00 Active Assessment Depression with anxiety F41.8 Active Problem senior living current use of insulin Z79.4 Active Assessment Stented coronary artery Z95.5 Active Problem Chronic back pain M54.9 Active Assessment Type 2 diabetes mellitus without E11.9 Active complications Problem Degeneration of lumbosacral M51.37 Active intervertebral disc Problem Primary insomnia F51.01 Active Problem Intractable migraine with aura with G43.111 Active status migrainosus Problem 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 incontinence Problem NSTEMI (non-ST elevated myocardial I21.4 Active infarction) Problem Iron deficiency anemia D50.9 Active Problem Depression with anxiety F41.8 Active Problem Diabetic 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 Active with type 2 diabetes mellitus Problem Cough productive of yellow sputum R05 Active Problem Wheezing on inspiration R06.2 Active Problem Stented coronary artery Z95.5 Active Problem Acute bronchitis, unspecified J20.9 Active organism Assessment 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 incontinence Problem Diabetic neuropathy E11.40 Active Assessment Screening for malignant neoplasm of Z12.31 Active breast Problem Obesity E66.9 Active Problem DJD (degenerative joint disease) M19.90 Active Assessment Hirsutism L68.0 Active Problem Constipation K59.00 Active Problem Type 2 diabetes mellitus without E11.9 Active complications Problem Insomnia, unspecified G47.00 Active Problem Hyperlipidemia E78.5 Active Problem Essential hypertension I10 Active Medications Medication Code Code Instructions Start End Status Dosage System Date Date Clonidine HCl [facility] 70143941826 0.3 MG Orally Active 1 tablet three times a day Valium [facility] 13465101003 2 MG Orally March Active 1 tablet as Once a day 08, needed 2019 Trazodone HCl [facility] 96493755561 50 MG Orally Inactive 1 tablet at Once a day bedtime as needed Rosuvastatin [facility] 65141276706 10 MG Orally Active 1 tablet Calcium Once a day Topamax [facility] 80873396576 100 MG Orally Active 1 tablet Twice a day Metformin HCl [facility] 66575211186 1000 MG Orally Active 1 tablet with Twice a day meals Basaglar [facility] 84027620233 100 UNIT/ML Active 80 units as KwikPen Subcutaneous directed once a day Mirtazapine [facility] 11813211296 15 MG Orally Inactive 1 tablet at Once a day bedtime Duloxetine HCl [facility] 97723428707 60 MG Orally Active 1 capsule twice a day Duloxetine HCl [facility] 02426313711 60 MG Orally Active 1 capsule twice a day Carvedilol [facility] 72079739386 25 MG Orally Active as directed twice a day Prasugrel HCl [facility] 09776543201 10 MG Orally Active as directed [place] [facility] 07388154918 10-325 MG Active 1 tablet as Orally every 6 needed hrs NovoLog [facility] 21067598586 100U/ML Active INJECT 10 UNITS Flexpen SUBCUTANEOUSLY THREE TIMES DAILY ZyrTEC [facility] 78734177451 Active not defined Albuterol [facility] 34207102735 108 (90 Base) December Active 2 puffs as Sulfate MCG/ACT 10, needed Inhalation 2018 every 6 hrs Results No Known Results Summary Purpose eClinicalWorks Submission
[2019-01-26 18:48] LABS: Absolute Lymphocytes (CBC) 3.9 K/uL (0.7-4.9); Basophils % 0.8 % (0-1.3); Hematocrit 32.3 % (36.0-45.0); Lymphocytes % 32.2 % (15.3-44.8); MPV 9.7 fL (7.6-11.3); RBC Red Blood Cell Count 3.97 M/uL (3.86-4.86)
[2019-01-26 18:50] LABS: Protime INR 1.03
[2019-01-26 19:13] LABS: ALT/SGPT 15 U/L (12-78); AST/SGOT 10 U/L (15-37); Albumin 3.5 g/dL (3.4-5.0); Alkaline Phosphatase 133 U/L (45-117); BUN Blood Urea Nitrogen 19 mg/dL (7-18); Bicarbonate 25 mmol/L (21-32); Bilirubin Direct 0.1 mg/dL (0-0.2); Bilirubin Total 0.3 mg/dL (0.2-1.0); Glucose Level 167 mg/dL (74-106); NT PRO-BNP 294 pg/mL (<125); Potassium 3.7 mmol/L (3.5-5.1); Protein, Total 7.5 g/dL (6.4-8.2); Sodium Level 140 mmol/L (136-145); Troponin (Emerg Dept Use Only) < 0.02 ng/mL (0.0-0.045)
[2019-01-26 19:14] LABS: Magnesium 1.5 mg/dL (1.8-2.4)
--- NOTE | 2019-01-26 20:05 | RAD REPORT ---
EXAM DESCRIPTION: RAD - Chest Single View - 01/26/2019 6:54 pm CLINICAL HISTORY: Shortness of breath COMPARISON: December 2017 TECHNIQUE: AP portable chest image was obtained 1853 hours . FINDINGS: Lung volumes are relatively low. Lung busch are clear. Left hemidiaphragm elevation is no ulices. No mediastinal or hilar abnormality evident. Lung markings are similar to comparison. Heart and vasculature are normal. No measurable pleural effusion and no pneumothorax. No acute bony abnormality seen. No acute aortic findings suspected. IMPRESSION: No acute cardiopulmonary process. No significant change from comparison.
[2019-01-26] MEDS ORDERED: DOXYCYCLINE 100 MG CAP PO ONE (20:43)
[2019-01-26] MEDS ORDERED: MAGNESIUM SULFATE 1 gm IVPB 1 GM/100 ML BAG IV ONE (20:43)
--- NOTE | 2019-01-26 21:20 | ER ---
Nurse's Notes [facility] Name: Luz Nick Age: 53 yrs Sex: Female : 1965 Arrival Date: 01/26/2019 Time: 17:34 Bed 8 Private MD: Irish Santana Diagnosis: Other chest pain;Chest pain, unspecified;Cellulitis of foot Presentation: 01/26 17:38 Presenting complaint: Patient states: i have a cut on my R foot area and [facility] placed stitches last week, i feel like it is getting infected; today i started having anxiety attacks, im not sure if its because of my feet hurting or my heart, i have heart stents placed last December 2017; reports SOB;. Transition of care: patient was not received from another setting of care. Onset of symptoms was January 26, 2019. Risk Assessment: Do you want to hurt yourself or someone else?. Initial Sepsis Screen: Does the patient meet any 2 criteria? No. Patient's initial sepsis screen is negative. Does the patient have a suspected source of infection? No. Patient's initial sepsis screen is negative. Care prior to arrival: None. 17:38 Method Of Arrival: Ambulatory 17:38 Acuity: GORDY 3 hj Historical: - Allergies: 17:41 PENICILLINS; hj - PMHx: 17:41 Diabetes - NIDDM; Hypertension; Migraines; hj - PSHx: 17:41 ; Cholecystectomy; cardiac stents; hj - Immunization history:: Adult Immunizations up to date. - Social history:: Smoking status: Patient/guardian denies using tobacco. - Ebola Screening: : No symptoms or risks identified at this time. Screenin:30 Abuse screen: Denies threats or abuse. Denies injuries from another. Nutritional sg screening: No deficits noted. Tuberculosis screening: No symptoms or risk factors identified. Never had TB. Fall Risk None identified. Assessment: 18:38 General: Appears in no apparent distress. well groomed, well developed, well nourished, sg Behavior is calm, cooperative, appropriate for age. Pain: Complains of pain in right foot Quality of pain is described as aching. Neuro: Level of Consciousness is awake, alert, obeys commands. Cardiovascular: Capillary refill is brisk in bilateral fingers Patient's skin is warm and dry. Chest pain is denied. Respiratory: Airway is patent Respiratory effort is even, unlabored, Respiratory pattern is regular, symmetrical. GI: Abdomen is round non-distended. : No signs and/or symptoms were reported regarding the genitourinary system. EENT: No signs and/or symptoms were reported regarding the EENT system. Derm: Skin is pink, warm \T\ dry. Derm: Reports pain at the suture site on the foot. Musculoskeletal: Circulation, motion, and sensation intact. Range of motion: intact in all extremities. 20:00 Reassessment: Patient appears in no apparent distress at this time. Patient and/or tr5 family updated on plan of care and expected duration. Pain level reassessed. Patient is alert, oriented x 3, equal unlabored respirations, skin warm/dry/pink. 20:49 Reassessment: Patient appears in no apparent distress at this time. Patient and/or rv family updated on plan of care and expected duration. Pain level reassessed. Patient is alert, oriented x 3, equal unlabored respirations, skin warm/dry/pink. PATIENT'S BLOOD AND RADIOLOGY REPORT EXPLAINED BY DR DELGADO AT BEDSIDE WITH A FAMILY MEMBER. REPEAT TROPONIN, AWAITING RESULT. Vital Signs: 17:41 BP 100 / 72; Pulse 95; Resp 18; Temp 97.8(TE); Pulse Ox 100% on R/A; Weight 89.81 kg; hj Height 5 ft. 8 in. (172.72 cm); Pain 0/10; 19:37 BP 122 / 85; Pulse 84; Resp 16; Pulse Ox 100% on R/A; rv 20:00 BP 137 / 80; Pulse 80; Resp 16; Pulse Ox 100% on R/A; rv 20:30 BP 133 / 87; Pulse 86; Resp 16; Temp 98; Pulse Ox 99% on R/A; rv 21:44 BP 156 / 83; Pulse 87; Resp 15; Temp 98; Pulse Ox 99% on R/A; rv 17:41 Body Mass Index 30.11 (89.81 kg, 172.72 cm) ED Course: 17:34 Patient arrived in ED. dp 17:34 Irish Santana MD is Private Physician. dp 17:40 Triage completed. hj 17:41 Arm band placed on left wrist. hj 17:57 EKG done, by player piano technician. reviewed by Gene Zaidi MD. at1 18:00 Patient has correct armband on for positive identification. Placed in gown. Bed in low tr5 position. 18:24 Judson Delgado MD is Attending Physician. kdr 18:35 Inserted saline lock: 22 gauge in right antecubital area, using aseptic technique. rv Blood collected. 18:59 XRAY Chest (1 view) In Process Unspecified. EDMS 19:06 Tray Mireles, RN is Primary Nurse. tr5 20:49 No provider procedures requiring assistance completed. rv 21:18 Irish Santana MD is Referral Physician. kdr 21:45 IV discontinued, intact, bleeding controlled, No redness/swelling at site. Pressure rv dressing applied. Administered Medications: 20:33 Drug: Magnesium Sulfate 1 grams Route: IVPB; Infused Over: 1 hrs; Site: right rv antecubital; 21:46 Follow up: IV Status: Completed infusion; IV Intake: 100ml rv 20:34 Drug: Doxycycline 100 mg Route: PO; rv 21:46 Follow up: Response: No adverse reaction; Marked relief of symptoms rv Intake: 21:46 IV: 100ml; Total: 100ml. rv Outcome: 21:19 Discharge ordered by . kdr 21:45 Discharged to home ambulatory, with family. rv 21:45 Condition: good 21:45 Discharge instructions given to patient, Instructed on discharge instructions, follow up and referral plans. medication usage, Demonstrated understanding of instructions, follow-up care, medications, Prescriptions given X 1. 21:46 Patient left the ED. rv Signatures: Dispatcher [employer] EDMS Eze Ambriz RN RN sg Judson Delgado MD MD kdr Doreen Goldberg, subscription agent EKG Tat1 Norberto Silvestre RN RN hj Vicente, Ronaldo, RN RN rv Pena, Darian dp Rodriguez, Tommie, RN RN tr5 Corrections: (The following items were deleted from the chart) 17:46 17:38 Presenting complaint: Patient states: i have a cut on my R foot area and [facility] placed stitches, i feel like it is getting infected; today i started having anxiety attacks because of my feet hurting or my heart, i have heart stents placed; reports SOB; hj
--- NOTE | 2019-01-26 21:21 | EDPHYS ---
Physician Documentation [facility] Name: Luz Nick Age: 53 yrs Sex: Female : 1965 Arrival Date: 01/26/2019 Time: 17:34 Bed 8 Private MD: Irish Santana ED Physician Judson Choi HPI: 01/26 21:47 This 53 yrs old Female presents to ER via Ambulatory with complaints of kdr Anxiety, Wound Infection, Shortness Of Breath. 21:48 The patient is concerned that she is having chest pain or anxiety today and also kdr possible infection of her right ankle after a laceration repair last week. She has not had these symptoms before. Onset: The symptoms/episode began/occurred suddenly, today. Severity of symptoms: At their worst the symptoms were mild in the emergency department the symptoms have improved markedly. The patient has not experienced similar symptoms in the past. The patient has not recently seen a physician. Historical: - Allergies: 17:41 PENICILLINS; hj - PMHx: 17:41 Diabetes - NIDDM; Hypertension; Migraines; hj - PSHx: 17:41 ; Cholecystectomy; cardiac stents; hj - Immunization history:: Adult Immunizations up to date. - Social history:: Smoking status: Patient/guardian denies using tobacco. - Ebola Screening: : No symptoms or risks identified at this time. ROS: 21:48 Constitutional: Negative for fever, chills, and weight loss, Eyes: Negative for injury, kdr pain, redness, and discharge, ENT: Negative for injury, pain, and discharge, Neck: Negative for injury, pain, and swelling, Respiratory: Negative for shortness of breath, cough, wheezing, and pleuritic chest pain, Abdomen/GI: Negative for abdominal pain, nausea, vomiting, diarrhea, and constipation, Back: Negative for injury and pain, : Negative for injury, bleeding, discharge, and swelling, MS/Extremity: Negative for injury and deformity, Skin: Negative for injury, rash, and discoloration, Neuro: Negative for headache, weakness, numbness, tingling, and seizure activity. Allergy/Immunology: Negative for hives, rash, and allergies, Endocrine: Negative for neck swelling, polydipsia, polyuria, polyphagia, and marked weight changes, Hematologic/Lymphatic: Negative for swollen nodes, abnormal bleeding, and unusual bruising. 21:48 Cardiovascular: Positive for chest pain, Negative for edema, orthopnea, palpitations, paroxysmal nocturnal dyspnea, acute changes. 21:48 Psych: Positive for anxiety, Negative for depression, drug dependence. Exam: 21:48 Constitutional: This is a well developed, well nourished patient who is awake, alert, kdr and in no acute distress. Head/Face: Normocephalic, atraumatic. Eyes: Pupils equal round and reactive to light, extra-ocular motions intact. Lids and lashes normal. Conjunctiva and sclera are non-icteric and not injected. Cornea within normal limits. Periorbital areas with no swelling, redness, or edema. Neck: Trachea midline, no thyromegaly or masses palpated, and no cervical lymphadenopathy. Supple, full range of motion without nuchal rigidity, or vertebral point tenderness. No Meningismus. Chest/axilla: Normal chest wall appearance and motion. Nontender with no deformity. No lesions are appreciated. Cardiovascular: Regular rate and rhythm with a normal S1 and S2. No gallops, murmurs, or rubs. Normal PMI, no JVD. No pulse deficits. Respiratory: Lungs have equal breath sounds bilaterally, clear to auscultation and percussion. No rales, rhonchi or wheezes noted. No increased work of breathing, no retractions or nasal flaring. Abdomen/GI: Soft, non-tender, with normal bowel sounds. No distension or tympany. No guarding or rebound. No evidence of tenderness throughout. Back: No spinal tenderness. No costovertebral tenderness. Full range of motion. MS/ Extremity: Pulses equal, no cyanosis. Neurovascular intact. Full, normal range of motion. Neuro: Awake and alert, GCS 15, oriented to person, place, time, and situation. Cranial nerves II-XII grossly intact. Motor strength 5/5 in all extremities. Sensory grossly intact. Cerebellar exam normal. Normal gait. Psych: Awake, alert, with orientation to person, place and time. Behavior, mood, and affect are within normal limits. 21:48 Skin: cellulitis, that is minimal, There is slight erythema to the incision site of the laceration repair on the right ankle. Vital Signs: 17:41 BP 100 / 72; Pulse 95; Resp 18; Temp 97.8(TE); Pulse Ox 100% on R/A; Weight 89.81 kg; hj Height 5 ft. 8 in. (172.72 cm); Pain 0/10; 19:37 BP 122 / 85; Pulse 84; Resp 16; Pulse Ox 100% on R/A; rv 20:00 BP 137 / 80; Pulse 80; Resp 16; Pulse Ox 100% on R/A; rv 20:30 BP 133 / 87; Pulse 86; Resp 16; Temp 98; Pulse Ox 99% on R/A; rv 21:44 BP 156 / 83; Pulse 87; Resp 15; Temp 98; Pulse Ox 99% on R/A; rv 17:41 Body Mass Index 30.11 (89.81 kg, 172.72 cm) hj MDM: 21:19 Patient medically screened. kdr 21:48 Data reviewed: vital signs, nurses notes, lab test result(s), radiologic studies. kdr Counseling: I had a detailed discussion with the patient and/or guardian regarding: the historical points, exam findings, and any diagnostic results supporting the discharge/admit diagnosis, lab results, radiology results, the need for outpatient follow up. 01/26 18:24 Order name: Basic Metabolic Panel; Complete Time: 20:17 kdr 01/26 18:24 Order name: CBC with Diff; Complete Time: 20:17 kdr 01/26 18:24 Order name: LFT's; Complete Time: 20:17 kdr 01/26 18:24 Order name: Magnesium; Complete Time: 20:17 kdr 01/26 18:24 Order name: NT PRO-BNP; Complete Time: 20:17 [facility] 01/26 18:24 Order name: PT-INR; Complete Time: 20:17 [facility] 01/26 17:41 Order name: EKG - Nurse/Tech; Complete Time: 17:47 01/26 18:24 Order name: Troponin (emerg Dept Use Only); Complete Time: 20:17 kdr 01/26 18:24 Order name: XRAY Chest (1 view); Complete Time: 20:17 kdr 01/26 18:24 Order name: EKG; Complete Time: 18:25 [facility] 01/26 18:24 Order name: Cardiac monitoring; Complete Time: 19:06 kdr 01/26 20:17 Order name: Troponin (emerg Dept Use Only) [facility] 07/30 18:24 Order name: IV Saline Lock; Complete Time: 18:36 kdr 01/26 18:24 Order name: Labs collected and sent; Complete Time: 18:36 kdr 01/26 18:24 Order name: O2 Per Protocol; Complete Time: 18:36 kdr 01/26 18:24 Order name: O2 Sat Monitoring; Complete Time: 18:36 kdr Administered Medications: 20:33 Drug: Magnesium Sulfate 1 grams Route: IVPB; Infused Over: 1 hrs; Site: right rv antecubital; 21:46 Follow up: IV Status: Completed infusion; IV Intake: 100ml rv 20:34 Drug: Doxycycline 100 mg Route: PO; rv 21:46 Follow up: Response: No adverse reaction; Marked relief of symptoms rv Disposition: 01/26/19 21:19 Discharged to Home. Impression: Other chest pain, Chest pain, unspecified, Cellulitis of foot. - Condition is Stable. - Discharge Instructions: Cellulitis, Adult, [id number], Nonspecific Chest Pain, [id number]. - Prescriptions for Doxycycline Hyclate 100 mg Oral Tablet - take 1 tablet by ORAL route every 12 hours for 7 days; 14 tablet. - Medication Reconciliation Form, Thank You Letter, Antibiotic Education form. - Follow up: Irish Santana MD; When: 2 - 3 days; Reason: If symptoms return, Further diagnostic work-up, Recheck today's complaints, Continuance of care, Re-evaluation by your physician. - Problem is new. - Symptoms have improved. Signatures: Dispatcher [employer] EDMS Judson Choi MD MD [facility] Norberto Silvestre RN RN Neptali Lopez RN RN Tray Mireles RN RN tr5 Corrections: (The following items were deleted from the chart) 21:46 21:19 01/26/2019 21:19 Discharged to Home. Impression: Other chest pain; Chest pain, rv unspecified; Cellulitis of foot. Condition is Stable. Forms are Medication Reconciliation Form, Thank You Letter, Antibiotic Education, Prescription Opioid Use. Follow up: Irish Santana; When: 2 - 3 days; Reason: If symptoms return, Further diagnostic work-up, Recheck today's complaints, Continuance of care, Re-evaluation by your physician. Problem is new. Symptoms have improved. kdr
[2019-01-26 22:06] VITALS: TEMP 98; O2SAT 99
[2019-01-26 22:07] VITALS: BP 156/83
--- NOTE | 2019-01-27 10:49 | EKG ---
Test Date: 2019-01-26 Test Time: 17:51:52 Top Precipitator Operator: RONNIE MEASUREMENT RESULTS: Intervals: Rate: 95 LA: 144 QRSD: 62 QT: 350 QTc: 439 Cameron: P: 7 LA: 144 QRS: -4 T: 65 INTERPRETIVE STATEMENTS: Normal sinus rhythm Normal ECG Compared to ECG 01/16/2018 10:05:46 no significant change from previous ECG Electronically Signed On 01-27-19 10:48:59 CDT by Andrei Davis
== END 2019-01-26 21:46 | disposition home or self-care (01) ==
LOC: ER 17:33
DX: S91.011D Laceration without foreign body, right ankle, subsequent encounter (principal); L03.115 Cellulitis of right lower limb; R07.89 Other chest pain; E11.9 Type 2 diabetes mellitus without complications; I10 Essential (primary) hypertension; Z88.0 Allergy status to penicillin
CPT/HCPCS: 85025; 80048; 36415; 83735; 85610; 80076; 84484 ×2; 83880; 71045; J3475; 93005; 96365; 99284

== ENCOUNTER 2019-07-20 09:59 | Emergency (ER) | payer OTHER ==
--- OUTSIDE RECORDS SUMMARY | 2019-07-20 10:02 | XMS REPORT ---
:1965 [facility] Address [address] [place] [address] [address] [place] [address] Care Team Providers Name Role Phone Unavailable Unavailable Unavailable Problems This patient has no known problems. Allergies, Adverse Reactions, Alerts This patient has no known allergies or adverse reactions. Medications This patient has no known medications.
--- OUTSIDE RECORDS SUMMARY | 2019-07-20 10:02 | XMS REPORT ---
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 Problem DJD (degenerative joint disease) M19.90 Active Problem Iron deficiency anemia D50.9 Active Problem Wound discharge T14.8XXA Active Problem Stented coronary artery Z95.5 Active Problem Acute bronchitis, unspecified J20.9 Active organism Problem 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 incontinence Problem NSTEMI (non-ST elevated myocardial I21.4 Active infarction) Problem Hyperlipidemia E78.5 Active Problem Essential hypertension I10 Active Problem Diabetic neuropathy E11.40 Active Problem Obesity E66.9 Active 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 Problem Chronic back pain M54.9 Active Problem Type 2 diabetes mellitus without E11.9 Active complications Problem Degeneration of lumbosacral M51.37 Active intervertebral disc Problem Depression with anxiety F41.8 Active Problem Insomnia, unspecified G47.00 Active Problem Intractable migraine with aura G43.111 Active with status migrainosus Medications Medication Code Code Instructions Start End Date Status Dosage System Date Clonidine HCl [facility] 26567242534 0.3 MG Orally Active 1 tablet three times a day Results No Known Results Summary Purpose [employer] Submission
--- OUTSIDE RECORDS SUMMARY | 2019-07-20 10:03 | XMS REPORT ---
[...] E11.40 Active Problem Obesity E66.9 Active Problem snf current use of insulin Z79.4 Active Problem Chronic back pain M54.9 Active Problem Type 2 diabetes mellitus without E11.9 Active complications Problem Degeneration of lumbosacral M51.37 Active intervertebral disc Problem Depression with anxiety F41.8 Active Problem Insomnia, unspecified G47.00 Active Problem Intractable migraine with aura G43.111 Active with status migrainosus Medications No Known Medications Results No Known Results Summary Purpose [employer] Submission
--- OUTSIDE RECORDS SUMMARY | 2019-07-20 10:03 | XMS REPORT ---
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 type 2 diabetes mellitus Assessment Hyperlipidemia E78.5 Active Assessment Essential hypertension I10 Active Assessment Type 2 diabetes mellitus without [...] (non-ST elevated myocardial I21.4 Active infarction) Assessment Needs flu shot Z23 Active Problem Hyperlipidemia E78.5 Active Assessment NSTEMI (non-ST elevated myocardial I21.4 Active infarction) Problem Essential hypertension I10 Active Problem Diabetic neuropathy E11.40 Active Problem Obesity E66.9 Active Problem jail current use of insulin Z79.4 Active Problem Chronic back pain M54.9 Active Problem Type 2 diabetes mellitus without E11.9 Active complications Problem Insomnia, unspecified G47.00 Active Medications Medication Code Code Instructions Start End Status Dosage System Date Date Albuterol [facility] 96131124802 108 (90 Base) December Active 2 puffs as Sulfate MCG/ACT 10, needed Inhalation 2018 every 6 hrs ZyrTEC [facility] 91597265142 Active not defined Rosuvastatin [facility] 17047162915 10 MG Orally Active 1 tablet Calcium Once a day Metformin HCl [facility] 49351475968 1000 MG Orally Active 1 tablet with Twice a day meals Two Harbors [facility] 59453700529 10-325 MG Active 1 tablet as Orally every 6 needed hrs NovoLog [facility] 11296050386 100U/ML Active INJECT 10 UNITS Flexpen SUBCUTANEOUSLY THREE TIMES DAILY Prasugrel HCl [facility] 02651979877 10 MG Orally Active as directed Topamax [facility] 48995189177 100 MG Orally Active 1 tablet Twice a day Tramadol HCl [facility] 0 Active not defined Carvedilol [facility] 47764404334 25 MG Orally Active as directed twice a day Clonidine HCl [facility] 03176128152 0.3 MG Orally Active 1 tablet three times a day Aspirin [facility] [address]-37 Active not defined Basaglar [facility] 71069567904 100 UNIT/ML Active 20 units as KwikPen Subcutaneous directed once a day Valium [facility] 49310248430 2 MG Orally Active 1 tablet as Once a day needed Duloxetine HCl [facility] 20592076697 60 MG Orally Active 1 capsule twice a day Abilify [facility] 81320089819 5 MG Orally May 03, Active 1 tablet Once a day 2018 Results No Known Results Immunizations Vaccine Administration Date Afluria single dose May 03, 2019 Summary Purpose [employer] Submission
--- NOTE | 2019-07-20 10:53 | RAD REPORT ---
EXAM DESCRIPTION: CT - CTHCSPWOC - 07/20/2019 10:39 am CLINICAL HISTORY: Trauma, head and neck injury. headache/dizziness post fall COMPARISON: CT HEAD CSPINE MPR WO CONTRAST dated 09/05/2013 TECHNIQUE: Axial 5 mm thick images of the head were obtained. Axial 2 mm thick images of the cervical spine were obtained with sagittal and coronal reconstruction images generated and reviewed. All CT scans are performed using dose optimization technique as appropriate and may include automated exposure control or mA/KV adjustment according to patient size. FINDINGS: CT HEAD WITHOUT CONTRAST: No acute hemorrhage, hydrocephalus or extra-axial collection is identified.No areas of brain edema or midline shift. The paranasal sinuses and mastoids are clear.The calvarium is intact. CT CERVICAL SPINE WITHOUT CONTRAST: No fracture or subluxation.No prevertebral soft tissues swelling is identified. IMPRESSION: No acute intracranial or cervical spine findings.
[2019-07-20] MEDS ORDERED: KETOROLAC 30 MG/ML INJ ONE (11:13)
--- NOTE | 2019-07-20 11:49 | RAD REPORT ---
EXAM DESCRIPTION: Deepthi Single View07/20/2019 11:43 am CLINICAL HISTORY: Chest pain COMPARISON: December 2018 FINDINGS: The lungs appear clear of acute infiltrate. The heart is normal size IMPRESSION: No acute abnormalities displayed
--- NOTE | 2019-07-20 11:51 | RAD REPORT ---
EXAM DESCRIPTION: RAD - Thoracic Spine Ap/Lat - 07/20/2019 11:43 am CLINICAL HISTORY: PAIN Radiculopathy COMPARISON: SPINE THORACICAP LAT dated 11/18/2007 FINDINGS: The thoracic spine vertebral body heights and disc spaces are largely maintained. No acute compression fracture. No significant malalignment. IMPRESSION: Negative study.
--- NOTE | 2019-07-20 11:52 | RAD REPORT ---
EXAM DESCRIPTION: RAD -Hand Left 3 View - 07/20/2019 11:45 am CLINICAL HISTORY: Left hand pain status post injury FINDINGS: No fracture or dislocation is seen.
--- NOTE | 2019-07-20 11:52 | RAD REPORT ---
EXAM DESCRIPTION: RAD - Shoulder Right 2 View - 07/20/2019 11:43 am CLINICAL HISTORY: PAIN COMPARISON: No comparisons FINDINGS: Mild AC joint and glenohumeral joint arthritic changes. No acute fracture or dislocation e vident.
--- NOTE | 2019-07-20 12:04 | EDPHYS ---
Physician Documentation [facility] Name: Luz Nick Age: 53 yrs Sex: Female : 1965 Arrival Date: 07/20/2019 Time: 10:01 Bed 23 Private MD: Irish Santana ED Physician Amberly Lima HPI: 07/20 11:04 This 53 yrs old Female presents to ER via Ambulatory with complaints of Fall ma2 Injury, Head Injury-Adult, Shoulder Pain. 11:04 Details of fall: The patient fell from an upright position. Onset: The symptoms/episode ma2 began/occurred suddenly, 1 hour(s) ago. Severity of symptoms: At their worst the symptoms were mild, in the emergency department the symptoms are unchanged. The patient has not experienced similar symptoms in the past. 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 - Social history:: Smoking status: Patient denies any tobacco usage or history of. Patient/guardian denies using alcohol, street drugs, The patient lives with family, with spouse. - Ebola Screening: : No symptoms or risks identified at this time. - Family history:: not pertinent. ROS: 11:04 Constitutional: Negative for fever, chills, and weight loss. ma2 11:04 All other systems are negative. Exam: 11:04 Constitutional: This is a well developed, well nourished patient who is awake, alert, ma2 and in no acute distress. Head/Face: Normocephalic, atraumatic. Eyes: Pupils equal round and reactive to light, extra-ocular motions intact. Lids and lashes normal. Conjunctiva and sclera are non-icteric and not injected. Cornea within normal limits. Periorbital areas with no swelling, redness, or edema. ENT: Nares patent. No nasal discharge, no septal abnormalities noted. Tympanic membranes are normal and external auditory canals are clear. Oropharynx with no redness, swelling, or masses, exudates, or evidence of obstruction, uvula midline. Mucous membranes moist. Neck: neck pain and right lateral ttp, otherwise Trachea midline, no thyromegaly or masses palpated, and no cervical lymphadenopathy. Supple, full range of motion without nuchal rigidity, or vertebral point tenderness. No Meningismus. Chest/axilla: Normal chest wall appearance and motion. Nontender with no deformity. No lesions are appreciated. Cardiovascular: Regular rate and rhythm with a normal S1 and S2. No gallops, murmurs, or rubs. Normal PMI, no JVD. No pulse deficits. Respiratory: Lungs have equal breath sounds bilaterally, clear to auscultation and percussion. No rales, rhonchi or wheezes noted. No increased work of breathing, no retractions or nasal flaring. Abdomen/GI: Soft, non-tender, with normal bowel sounds. No distension or tympany. No guarding or rebound. No evidence of tenderness throughout. Back: No spinal tenderness. No costovertebral tenderness. Full range of motion. Skin: Warm, dry with normal turgor. Normal color with no rashes, no lesions, and no evidence of cellulitis. MS/ Extremity: right shoulder pain, yet full rom and left hand pain at middle finger, Pulses equal, no cyanosis. Neurovascular intact. Full, normal range of motion. Neuro: Awake and alert, GCS 15, oriented to person, place, time, and situation. Cranial nerves II-XII grossly intact. Motor strength 5/5 in all extremities. Sensory grossly intact. Cerebellar exam normal. Normal gait. Vital Signs: 10:22 BP 100 / 63; Pulse 72; Resp 16 S; Temp 98.0(TE); Pulse Ox 100% on R/A; Pain 7/10; aa5 MDM: 10:59 Patient medically screened. rn 11:04 Differential diagnosis: abrasion, closed head injury, fracture, sprain. Data reviewed: ma2 vital signs, nurses notes. Counseling: I had a detailed discussion with the patient and/or guardian regarding: the historical points, exam findings, and any diagnostic results supporting the discharge/admit diagnosis, the presence of at least one elevated blood pressure reading (>120/80) during this emergency department visit, the need for outpatient follow up. Response to treatment: the patient's symptoms have markedly improved after treatment. 07/20 10:23 Order name: CT Head C Spine; Complete Time: 10:59 aa5 07/20 11:04 Order name: Shoulder Right (2 View) XRAY; Complete Time: 12:02 ma2 07/20 11:04 Order name: Chest Single View XRAY; Complete Time: 12:02 ma2 07/20 11:04 Order name: Hand Left 3 View XRAY; Complete Time: 12:02 ma2 07/20 11:04 Order name: Spine Thoracic Ap/Lat XRAY; Complete Time: 12:02 me2 07/20 12:03 Order name: Sling; Complete Time: 12:07 ma2 Administered Medications: 11:13 Drug: TORadol 60 mg Route: IM; Site: right gluteus; em 12:08 Follow up: Response: No adverse reaction mg2 12:08 Drug: [place] 5 mg-325 mg 1 tabs Route: PO; mg2 12:08 Follow up: Response: No adverse reaction; Medication administered at discharge. mg2 Disposition: 07/20/19 12:03 Discharged to Home. Impression: Fall (on) (from) unspecified stairs and steps, Pain in right shoulder. - Condition is Stable. - Discharge Instructions: Shoulder Pain. - Prescriptions for Tylenol- Codeine #3 300-30 mg Oral Tablet - take 2 tablet by ORAL route every 6 hours As needed; 30 tablet. - Medication Reconciliation Form, Thank You Letter, Antibiotic Education, Prescription Opioid Use form. - Family Work Release (07/20/19 12:42). bd - Follow up: Private Physician; When: Tomorrow; Reason: Continuance of care. Signatures: Dispatcher [employer] Demetris Ba RN Gene Feldman MD MD rn Calderon, Audri, RN RN aa5 Amberly Lima MD MD ma2 Alberto Castro RN RN Rupinder Reed bd Corrections: (The following items were deleted from the chart) 12:25 12:03 07/20/2019 12:03 Discharged to Home. Impression: Fall (on) (from) unspecified em stairs and steps; Pain in right shoulder. Condition is Stable. Prescriptions for Tylenol-Codeine #3 300-30 mg Oral Tablet - take 2 tablet by ORAL route every 6 hours As needed; 30 tablet. and Forms are Medication Reconciliation Form, Thank You Letter, Antibiotic Education, Prescription Opioid Use. Follow up: Private Physician; When: Tomorrow; Reason: Continuance of care. ma2
--- NOTE | 2019-07-20 12:04 | ER ---
Nurse's Notes [facility] Name: Luz Nick Age: 53 yrs Sex: Female : 1965 Arrival Date: 07/20/2019 Time: 10:01 Bed 23 Private MD: Irish Santana Diagnosis: Fall (on) (from) unspecified stairs and steps;Pain in right shoulder Presentation: 07/20 10:20 Presenting complaint: Patient states: "I don't remember how I fell, I think I tripped aa5 over my dog but I fell and hit my head on the corner of the desk, hit my right shoulder, and my left middle finger is bruised". Pt c/o dizziness and headache this time. Denies LOC. Transition of care: patient was not received from another setting of care. Onset of symptoms was July 20, 2019. Risk Assessment: Do you want to hurt yourself or someone else? Patient reports no desire to harm self or others. Initial Sepsis Screen: Does the patient meet any 2 criteria? No. Patient's initial sepsis screen is negative. Does the patient have a suspected source of infection? No. Patient's initial sepsis screen is negative. Care prior to arrival: None. 10:20 Acuity: GORDY 3 aa5 10:20 Method Of Arrival: Ambulatory aa5 SOAKER: 10:22 LMP N/A - Post-menopause aa5 Historical: - Allergies: 10:21 PENICILLINS; aa5 - PMHx: 10:21 Hypertension; Diabetes - NIDDM; Migraines; aa5 - PSHx: 10:21 Cholecystectomy; ; cardiac stents; aa5 - Immunization history:: Adult Immunizations unknown. - Social history:: Smoking status: Patient denies any tobacco usage or history of. Patient/guardian denies using alcohol, street drugs, The patient lives with family, with spouse. - Ebola Screening: : No symptoms or risks identified at this time. - Family history:: not pertinent. Screenin:08 Abuse screen: Denies threats or abuse. Nutritional screening: No deficits noted. em Tuberculosis screening: No symptoms or risk factors identified. Fall Risk Fall in past 12 months (25 points). Total Humphreys Fall Scale indicates Low Risk Score (25-44 pts). Side Rails Up X 2 Placed close to Nursing Station Family Present and informed to notify staff if they need to leave bedside. Assessment: 11:06 General: Appears in no apparent distress. uncomfortable, Behavior is calm, cooperative. em Pain: Complains of pain in anterior aspect of right shoulder and head Pain currently is 7 out of 10 on a pain scale. Neuro: Level of Consciousness is awake, alert, obeys commands, Oriented to person, place, time, situation, Appropriate for age Reports dizziness, headache. Cardiovascular: Capillary refill < 3 seconds Patient's skin is warm and dry. Respiratory: Airway is patent Respiratory effort is even, unlabored, Respiratory pattern is regular, symmetrical. GI: Patient currently denies nausea, vomiting. Derm: Skin is intact, is healthy with good turgor, Skin is pink, warm \\T\\ dry. Musculoskeletal: Capillary refill < 3 seconds, Range of motion: intact in all extremities. Vital Signs: 10:22 BP 100 / 63; Pulse 72; Resp 16 S; Temp 98.0(TE); Pulse Ox 100% on R/A; Pain 7/10; aa5 ED Course: 10:01 Patient arrived in ED. ag5 10:02 Irish Santana MD is Private Physician. ag5 10:20 Arm band placed on. aa5 10:21 Triage completed. aa5 10:39 CT Head C Spine In Process Unspecified. EDMS 10:57 Demetris Becerra, RN is Primary Nurse. em 10:58 Gene Zaidi MD is Attending Physician. rn 11:02 Amberly Lima MD is Attending Physician. ma2 11:08 Patient has correct armband on for positive identification. Bed in low position. Call em light in reach. Adult w/ patient. 11:42 X-ray completed. Patient tolerated procedure well. Patient moved back from radiology. jb2 11:43 Shoulder Right (2 View) XRAY In Process Unspecified. EDMS 11:44 Chest Single View XRAY In Process Unspecified. EDMS 11:44 Hand Left 3 View XRAY In Process Unspecified. EDMS 11:44 Spine Thoracic Ap/Lat XRAY In Process Unspecified. EDMS 12:24 No provider procedures requiring assistance completed. Patient did not have IV access mg2 during this emergency room visit. Sling applied to right arm. 12:24 No provider procedures requiring assistance completed. Patient did not have IV access em during this emergency room visit. Administered Medications: 11:13 Drug: TORadol 60 mg Route: IM; Site: right gluteus; em 12:08 Follow up: Response: No adverse reaction mg2 12:08 Drug: [place] 5 mg-325 mg 1 tabs Route: PO; mg2 12:08 Follow up: Response: No adverse reaction; Medication administered at discharge. mg2 Outcome: 12:03 Discharge ordered by . chintan 12:24 Discharged to home ambulatory, with family. mg2 12:24 Condition: stable 12:24 Discharge instructions given to patient, family, Instructed on discharge instructions, follow up and referral plans. medication usage, Demonstrated understanding of instructions, follow-up care, medications, Prescriptions given X 1. 12:25 Patient left the ED. em Signatures: Dispatcher [employer] EDGildardo Melendrez Edgar, RN RN em Gene Zaidi MD MD rn Calderon, Audri, RN RN aa5 Amberly Lima MD MD ma2 Alberto Castro RN RN mg2 Charlene Whaley 5
[2019-07-20] MEDS ORDERED: HYDROCODONE/APAP 5/325 MG TAB ONE (12:08)
[2019-07-20 15:29] VITALS: BP 100/63; TEMP 98; O2SAT 100
== END 2019-07-20 12:25 | disposition home or self-care (01) ==
LOC: ER 09:59
DX: M25.511 Pain in right shoulder (principal); W01.0XXA Fall on same level from slipping, tripping and stumbling without subsequent striking against object, initial encounter; Y93.9 Activity, unspecified; Y92.9 Unspecified place or not applicable; Z88.0 Allergy status to penicillin
CPT/HCPCS: 70450; 71045; 72070; 72125; 96372; 99284

== ENCOUNTER 2021-05-14 00:38 | Inpatient (IN) | payer OTHER ==
--- OUTSIDE RECORDS SUMMARY | 2021-05-14 00:44 | XMS REPORT | Continuity of Care Document ---
:1965 Author Organization [facility] t Address [address] [place] [address] Care Team Providers Name Role Phone Irish Santana Primary Care Physician Zunilda REESE Attending Clinician ZUNILDA Attending Clinician Unavailable Kim CORDOAV Attending Clinician Unavailable THALIA TEE Attending Clinician Unavailable THALIA TEE Attending Clinician Unavailable RADIOLOGY Attending Clinician Unavailable MARILY Attending Clinician Unavailable Payers Payer Name Policy Type Policy Number Effective Date Expiration Date S ource Problems Condition Condition Condition Status Onset Resolution Last Treating Co mments Source Name Details Category Date Date Treatment Clinician Date Arthropath Arthropath Disease Active U nivers y of y of 9-13 ity of lumbar lumbar 00:00: [place] facet facet 00 [facility] joint joint Branch Osteoarthr Osteoarthr Disease Active U nivers itis of itis of 9-13 [place]y of right [place] [facility] Branch Osteoarthr Osteoarthr Disease Active U nivers itis of itis of 6-28 ity of both both 00:00: [place] shoulders shoulders 00 [facility] Branch Arthritis Arthritis Disease Active Uni vers of right of right 5-03 ity of knee knee 00:00: [place] [address] [place] [address] Branch Drug-induc Drug-induc Disease Active U xi ed ed 5-03 ity of constipati constipati [place] Headache Headache Disease Active Unive rs 5-03 ity of 00:00: [place] [facility] Spasm of Spasm of Disease Active Unive rs back back 4-01 ity of muscles muscles 00:00: [place] [facility] Cervical Cervical Disease Active Unive rs radiculopa radiculopa 2-08 it y of thy thy 00:00: [place] [facility] Lumbar Lumbar Disease Active Univers radiculopa radiculopa 2-08 it y of thy thy 00:00: [place] [facility] Hypertensi Hypertensi Disease Active 2018-06 U xi ve urgency ve urgency 1-28 it y of 00:00: [place] [facility] IDDM IDDM Disease Active 2018-06 Univers (insulin (insulin 1-28 [place]y of dependent dependent 00:[place] diabetes diabetes 00 Medica l mellitus) mellitus) Bran ch Essential Essential Disease Active 2018-06 Uni vers hypertensi hypertensi 1-28 it y of on on 00:00: [place] [facility] Coronary Coronary Disease Active 2018-06 Unive rs artery artery 1-28 ity of disease disease 00:00: [place] involving involving 00 [facility]i [facility] [place] Branch coronary coronary artery of artery of [place] heart heart without without angina angina pectoris pectoris Chest pain Chest pain Disease Active 2018-06 U nivers 1-27 ity of 00:00: [place] [facility] Knee pain Knee pain Disease Active 2018-06 Uni vers 0-07 ity of 00:00: [place] [facility] Restless Restless Disease Active Unive rs legs legs 4-26 ity of 00:00: [place] 00 Medical Branch Anxiety Anxiety Disease Active 2019- Univers 2-01 ity of 00:00: [place] 00 Medical Branch Insomnia Insomnia Disease Active Unive rs 2-01 ity of 00:00: [place] 00 Medical [facility] Spinal Spinal Disease Active Univers stenosis stenosis 1-05 ity of of lumbar of lumbar 00:00[place] 00 [place] [facility] Cervical Cervical Disease Active Unive rs disc disc 1-05 ity of disorder disorder 00:00: [place] with with 00 Medical radiculopa radiculopa Br anch thy thy 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 [place] Inflammati Inflammati Disease Active U nivers on of on of 1-05 ity of sacroiliac sacroiliac 00:[place] joint joint 00 Medical Branch Neck pain Neck pain Disease Active Uni vers 1-05 ity of 00:00: [place] 00 Medical Branch Sciatica Sciatica Disease Active Unive rs 1-05 ity of 00:00: [place] 00 Medical Branch Shoulder Shoulder Disease Active Unive rs pain pain 1-05 ity of 00:00: [place] 00 Medical Branch Allergies, Adverse Reactions, Alerts Allergy Allergy Status Severity Reaction(s) Onset Inactive Treating Comm ents Source Name Type Date Date Clinician FLUTICAS DRUG Active SOB Univers ONE 9-03 ity of PROPION- 00:00: [place] SALMETER 00 Medical OL Branch PENICILL Drug Active SOB Univers INS Class 9-03 ity of 00:00: [place] 00 Medical Branch Fluticas Propensi Active Shortness of Univers one ty to Breath 9-03 ity of Propion- adverse 00:00: [place] Salmeter reaction 00 Medica l ol s Branch Penicill Propensi Active Shortness of Univers ins ty to Breath 9-03 ity of adverse 00:00: [place] reaction 00 Medical s Branch PCN Adverse Active swelling/donna [facility] Social History Social Habit Start Date Stop Date Quantity Comments Source Exposure to Not sure [place] of SARS-CoV-2 [place] Medical (event) Branch History [facility] University o f Alcohol Frequency [place] M edical Branch History [facility] o f Alcohol Std [place] Medical Drinks Branch History [facility] University o f Alcohol Binge [place] Medic al Branch Alcohol intake 2021-04-24 2021-04-24 Current drinker Unive rsity of 00:00:00 00:00:00 of alcohol [place] [facility] (finding) Branch Alcohol Comment 2020-10-02 2020-10-02 rare Universit y of 00:00:00 00:00:00 [place] [facility] History SDOH 2019-05-27 2019-05-27 3 University o f Financial 00:00:00 00:00:00 [place] [facility] [place] History SDNV Food 2019-05-27 2019-05-27 1 Univers ity of Worry 00:00:00 00:00:00 [place] [facility] History SDOH Food 2019-05-27 2019-05-27 1 Univers ity of Scarcity 00:00:00 00:00:00 [place] [facility] History SDNV 2019-05-27 2019-05-27 2 University o f Transport Med 00:00:00 00:00:00 [place] Medic al Branch History [facility] 2019-05-27 2019-05-27 2 University o f Transport Non-Med 00:00:00 00:00:00 [facility] edical Branch Education 2019-05-26 2019-05-26 21 [facility] 00:00:00 00:00:00 [facility] Tobacco use and 2017-03-02 2017-03-02 Never used Universit y of exposure 00:00:00 00:00:00 [facility] Sex [birth year] Universit y of 00:00:00 00:00:00 [facility] Smoking Status Start Date Stop Date Source Never smoker [facility] Medications Ordered Filled Start Stop Current Ordering Indication Dosage Frequency Signature Comments Components Source Medication Medication Date Date Medication? Clinician (SIG) Name Name cyclobenzap 2020-06 Yes 10mg Take 10 mg Univers rine 10 mg 0-26 by mouth ity o f tablet 13:08: daily. [address] rosuvastati 2020-06 Yes 20mg Take 20 mg Univers n 20 mg 0-26 by mouth ity of tablet 13:08: at [place] [id number] bedtime. [facility] INSULIN 2020-06- No inject Univers GLARGINE,HU 0-26 10-26 under the it y of M.REC.ANLOG 13:08: [place] (TOUJEO 14 :00 [facility] INSULIN 2020-06- No inject Univers GLARGINE,HU 0-26 10-26 under the it y of M.REC.ANLOG 13:08: 00:00 [place] (LANTUS [place]) 08 :00 [facility] Insulin Yes Basaglar Univer s Glargine 4-05 KwikPen ity of (BASAGLAR 10:17: U-100 [place] KWIKPEN 10 Insulin Medical U-100 100 Branch INSULIN) unit/mL (3 100 unit/mL mL) (3 mL) subcutaneo injection us INJECT UNDER THE SKIN 30 UNITS AND TITRATE UP 2 UNITS EVERY 2 DAYS UNTIL FBG LESS THAN 100. MAX 50 UNITS DAILY. topiramate Yes 50mg Take 50 mg U nivers (TOPAMAX) 4-05 by mouth. ity o f 50 mg 10:16: [place] tablet 23 Medical Branch metformin Yes 1000mg Take 1,000 Univers (GLUCOPHAGE 4-05 mg by ity of ) 1,000 mg 10:16: mouth 2 [place] tablet 23 (two) Medical times Branch daily with meals. DULoxetine Yes 30mg Take 30 mg U nivers (CYMBALTA) 4-05 by mouth ity o f 30 mg 10:16: daily. [place] capsule 23 Medical Branch cloniDINE Yes .3mg Take 0.3 Univ ers (CATAPRES) 4-05 mg by ity of 0.3 mg 10:16: mouth 3 [place] tablet 23 (three) Medical times Branch daily. INSULIN Yes inject Univers ASPART 4-05 under the ity of (NOVOLOG 10:16: skin. [place] PENFILL SC) 23 Medical Branch aspirin 81 2018-06 Yes 81mg Take 1 Unive rs mg chewable 1-28 tablet by ity of tablet 00:00: mouth [place] 00 daily with Medical breakfast. Branch carvedilol 2018-06 Yes 25mg Take 1 Unive rs 25 mg 1-28 tablet by ity of tablet 00:00: mouth 2 [place] 00 (two) Medical times Branch daily with meals. prasugrel 2018-06- No 10mg Take 1 Unive rs 10 mg 1-28 10-26 tablet by ity of tablet 00:00: 00:00 mouth [place] 00 :00 daily. Medical Branch traMADol Yes [id number] 50mg Take 1 Univers (ULTRAM) 50 7-19 [id number] tablet by i ty of mg tablet 00:00: mouth [place] 00 every 8 Medical (eight) Branch hours as needed for Pain (scale 4-6). Albuterol Albuterol Yes Na Santana [address] [facility] Sulfate Sulfate 7-10 needed [facility] albuterol 2020- No [id number] 2{puff} Inhale 2 Univers (PROAIR 03-02 10-26 Puffs ity of HFA) 90 00:00: 00:00 every 6 [place] mcg/actuati 00 :00 (six) Medical on inhaler hours as Branc h needed for Wheezing or Shortness of Breath. HYDROcodone Yes TK 1 T PO U nivers -acetaminop 8-30 Q 6 TO 8 H it y of hen 10-325 00:00: PRN [place] mg tablet 00 Medical Branch methocarbam 2020- No TK 1 T PO Univers ol 500 mg 01-01 10- BID ity of tablet 00:00: 00:00 [place] 00 :00 Medical Branch butalbital- 2020- No 1{tbl} Take 1 U nivers acetaminoph - 10- tablet by it y of en-caff 00:00: 00:00 mouth [place] 50-325-40 00 :00 every 4 Medical mg tablet (four) Branch hours as needed for Headache. ALPRAZolam 2020- No .25mg Take 0.25 Univers (XANAX) 1-11 10-26 mg by ity of 0.25 mg 00:00: 00:00 mouth 2 [place] tablet 00 :00 (two) Medical times Branch daily. Rosuvastati Rosuvastati Yes Na Santana [address] [facility] n Calcium n Calcium [facility] Duloxetine Duloxetine Yes Na Santana TAKE [address] [facility] HCl HCl CAPSULE BY [facility] TWICE l DAILY Outpati ent Clinics Metformin Metformin Yes Na Santana [address] [facility] HCl HCl with meals [facility] Tramadol Tramadol Yes Na Santana not [facility] HCl HCl defined [facility] NovoLog NovoLog Yes Na Santana INJECT [address] Flexpen Flexpen UNITS [facility] SUBCUTANEO [facility] USLY THREE l TIMES Outpati DAILY ent Clinics [place] Yes Na Santana [address] [facility] as needed [facility] ZyrTEC ZyrTEC Yes Na Santana not [facility] defined [facility] Clonidine Clonidine Yes Na Santana [address] [facility] HCl HCl [facility] Carvedilol Carvedilol Yes Na Santana as [facility] directed [facility] Abilify Abilify Yes Na Santana [address] [facility] Basaglyifan Cadena Yes Na Santana [address] KwikPen KwikPen daily [facility] Valium Valium Yes Na Santana [address] [facility] as needed [facility] Aspirin Aspirin Yes Na Santana not [facility] defined [facility] Metformin Metformin Yes Na Santana TAKE [address] [facility] [facility] HCl HCl TABLET BY [facility] TWICE l DAILY WITH Outpati MEALS ent Clinics Topiramate Topiramate Yes Na Santana TAKE [address] [facility] TABLET BY [facility] TWICE l DAILY Outpati ent Clinics Rosuvastati Rosuvastati Yes Na Santana TAKE [address] [facility] n Calcium n Calcium TABLET BY [facility] EVERY DAY l Outpati ent Clinics Aripiprazol Aripiprazol Yes Na Santana TAKE [address] [facility] e e TABLET BY [facility] EVERY DAY l Outpati ent Clinics Carvedilol Carvedilol Yes Na Santana TAKE [address] [facility] [facility] TABLET BY [facility] TWICE l DAILY Outpati DIRECTED ent Clinics Topamax Topamax Yes Na Santana [address] [facility] Prasugrel Prasugrel Yes Na Santana as [facility] HCl HCl directed [facility] Immunizations Ordered Filled Immunization Date Status Comments [facility] e Immunization Name Name SARS-COV-2 COVID-19 2021-01-31 Completed Unive rsity of PFIZER VACCINE 00:00:00 [facility] Afluria single dose Afluria single dose 2019-05-[address] [facility]00 [facility] Vital Signs Vital Name Observation Time Observation Value Comments Source Systolic blood 2021-04-24 18:09:00 170 mm[Hg] Univer sity of pressure [facility] Diastolic blood 2021-04-24 18:09:00 89 mm[Hg] Unive rsity of pressure [facility] Heart rate 2021-04-24 18:08:00 98 /min [facility] Body temperature 2021-04-24 18:08:00 36.61 Juju [facility] Respiratory rate 2021-04-24 18:08:00 19 /min [facility] Body height 2021-04-24 18:08:00 172.7 cm [facility] Body weight 2021-04-24 18:08:00 98.793 kg [facility] BMI 2021-04-24 18:08:00 33.12 kg/m2 [facility] Oxygen saturation in 2021-04-24 18:08:00 100 /min [facility] Arterial blood by [facility] Pulse oximetry [place] Procedures This patient has no known procedures. Encounters Start End Encounter Admission Attending Care Care Encounter Source Date/Time Date/Time Type Type Clinicians Facility Department ID 2021-05-08 2021-05-08 ambulatory [facility]LMLC [facility] [id number] [facility] 2021-04-24 2021-04-24 Office Puneet Mauro [facility] [id number] Univers 12:59:20 17:02:56 Visit Health [id number] it y of Clear [id number] [facility] danni Malone [phone] [address] Office Building 2021-04-24 2021-04-24 Outpatient PUNEET ORTEGA [facility] [id number] Univers 13:00:00 13:00:00 [id number] ity of [facility] 2021-04-24 2021-04-24 Outpatient PUNEET ORTEGA [facility] [id number] Univers 13:00:00 13:00:00 ity of [facility] 2021-03-20 2021-03-20 Outpatient PUNEET ORTEGA [facility] [id number] Univers 13:45:00 13:45:00 ity of [facility] 2021-03-20 2021-03-20 Outpatient PUNEET ORTEGA [facility] [id number] Univers 13:45:00 13:45:00 [id number] ity [facility] 2021-03-06 2021-03-06 Outpatient R PUNEET MAURO [facility] [id number] Univers 13:00:00 13:00:00 [id number] ity [facility] 2021-03-06 2021-03-06 Outpatient R PUNEET MAURO [facility] [id number] Univers 13:00:00 13:00:00 ity [facility] 2021-02-20 2021-02-20 Outpatient R ZUNILDAPUNEET [facility] [id number] Univers 14:30:00 14:30:00 [id number] ity [facility] 2021-02-20 2021-02-20 Outpatient R ZUNILDAPUNEET [facility] [id number] Univers 14:30:00 14:30:00 ity [facility] 2021-02-16 2021-02-16 Outpatient R CORDOVA, [facility] [id number] Univers 09:00:00 09:00:00 LINDSAY [id number] ity [facility] 2021-02-16 2021-02-16 Outpatient R ART [facility] [id number] Univers 09:00:00 09:00:00 [facility] 2021-01-[facility] 2021-01-31 Outpatient R PUNEET MAURO [facility] [id number] Univers 09:00:00 09:00:00 [id number] ity [facility] 2021-01-31 2021-01-31 Outpatient Rafael MAUROPUNEET [facility] [id number] Univers 00:00:00 00:00:00 ity [facility] 2021-01-23 2021-01-23 Outpatient R ZUNILDAPUNEET [facility] [id number] Univers 14:00:00 14:00:00 [id number] ity [facility] 2021-01-23 2021-01-23 Outpatient R ZUNILDAPUNEET [facility] [id number] Univers 14:00:00 14:00:00 ity [facility] 2021-01-12 2021-01-12 Outpatient LORENA PEREIRA [facility] [id number] Univers 14:20:00 14:20:00 LORENA TEE [id number] [facility] 2021-01-12 2021-01-12 Outpatient R LORENA TEE [facility] [id number] Univers 14:20:00 14:20:00 LORENA TEE [facility] 2021-01-03 2021-01-03 Outpatient STLMLC [facility]C [id number] [facility] 2021-01-02 2021-01-02 Outpatient R PUNEET MAURO [facility] [id number] Univers 11:00:00 11:00:00 [id number] [facility] 2021-01-02 2021-01-02 Outpatient R PUNEET MAURO [facility] [id number] Univers 11:00:00 11:00:00 [facility] 2020-12-21 2020-12-21 Outpatient R RADIOLOGY [facility] [id number] Univers 16:30:00 16:30:00 [id number] [facility] 2020-12-21 2020-12-21 Outpatient R RADIOLOGY [facility] [id number] Univers 00:00:00 00:00:00 [facility] 2020-12-14 2020-12-14 Outpatient STLMLC STLMLC [id number] [facility] 2020-12-13 2020-12-13 Outpatient STLMLC STLMLC [id number] [facility] 2020-12-12 2020-12-12 Outpatient R PUNEET MAURO [facility] [id number] Univers 11:00:00 11:00:00 [id number] [facility] 2020-12-12 2020-12-12 Outpatient R PUNEET MAURO [facility] [id number] Univers 11:00:00 11:00:00 [facility] 2020-11-22 2020-11-22 Outpatient STLMLC STLMLC [id number] [facility] 2020-11-14 2020-11-14 Outpatient PUNEET ORTEGA [facility] [id number] Univers 09:30:00 09:30:00 [id number] [facility] 2020-11-14 2020-11-14 Outpatient PUNEET ORTEGA [facility] [id number] Univers 09:30:00 09:30:00 [facility] 2020-10-30 2020-10-30 Outpatient Rafael CALIXTO [facility] [id number] Univers 09:30:00 09:30:00 NATHAN [id number] [facility] 2020-10-30 2020-10-30 Outpatient Rafael CALIXTO [facility] [id number] Univers 09:30:00 09:30:00 NATHAN [facility] 2020-10-02 2020-10-02 Outpatient Rafael CALIXTO [facility] [id number] Univers 09:30:00 09:30:00 NATHAN [id number] [facility] 2020-10-02 2020-10-02 Outpatient Rafael CALIXTO [facility] [id number] Univers 09:30:00 09:30:00 NATHAN [facility] 2020-09-14 2020-09-14 Outpatient Rafael CALIXTO [facility] [id number] Univers 14:45:00 14:45:00 NATHAN [id number] [facility] 2020-09-14 2020-09-14 Outpatient Rafael CALIXTO [facility] [id number] Univers 14:45:00 14:45:00 NATHAN [facility] 2020-07-12 2020-07-12 Outpatient STLMLC STLMLC [id number] [facility] 2020-06-26 2020-06-26 Outpatient STLMLC STLMLC [id number] [facility] 2020-06-09 2020-06-09 Outpatient STLMLC STLMLC [id number] [facility] 2020-06-02 2020-06-02 [facility] [id number] [facility]00 [facility] 2020-02-25 2020-02-25 [facility] [id number] [facility] 16:20:00 16:20:00 t [employer] [facility] Medicine l Medicine Outpati ent Clinics 2020-02-18 2020-02-18 [facility] [id number] [facility] 09:04:00 09:04:00 t [employer] [facility] Medicine l Medicine Outpati ent Clinics 2020-01-26 2020-01-26 [facility] [id number] [facility] 11:20:00 11:20:00 t [place] [facility] Medicine Outpat[facility] Clinics 2019-11-15 2019-11-15 [facility] [id number] [facility] 13:40:00 13:40:00 t [employer] [facility] Medicine Outpati ent Clinics 2019-11-08 2019-11-08 [facility] [id number] 09:46:00 09:46:00 t [place] Medicine Outpati ent Clinics 2019-10-26 2019-10-26 [facility] [id number] [facility] 16:29:00 16:29:00 t [employer] [facility] Medicine l Medicine Outpati ent Clinics 2019-10-13 2019-10-13 [facility] [id number] [facility] 10:00:00 10:00:00 t [employer] [facility] Medicine l Medicine Outpati ent Clinics 2019-07-26 2019-07-26 [facility] [id number] 10:32:00 10:32:00 t [place] [facility] Medicine Outpati ent Clinics 2019-07-26 2019-07-26 [facility] [id number] 09:41:00 09:41:00 t [place] [facility] Medicine Outpati ent Clinics 2019-06-10 2019-06-10 [facility] [id number] [facility] 16:53:00 16:53:[address] [place] [address] [place] [address] - [address] [facility] Medicine l Medicine Outpati ent Clinics 2019-05-03 2019-05-03 [facility] [id number] 14:00:00 14:00:00 [place] [address] [place] - Drive [facility] Medicine Outpat[facility] Clinics 2019-04-08 2019-04-08 [facility] [id number] [facility] 16:06:00 16:06:00 [place] [employer] Luke s - Drive [facility] Medicine Outpati ent Clinics 2019-02-24 2019-02-24 [facility] [id number] [facility] 11:34:00 11:34:00 [place] [employer] [place] - Drive [facility] Medicine Outpati ent Clinics 2019-01-16 2019-01-16 [facility] [id number] 13:30:00 13:30:00 [facility] 2019-01-11 2019-01-11 [facility] [id number] 11:00:00 11:00:00 [facility] 2018-09-04 2018-09-04 [facility] [id number] 11:00:00 11:00:00 [place] [employer] Luke s - Drive [facility] Medicine l Medicine Outpati ent Clinics 2018-02-02 2018-02-02 [facility] [id number] 11:15:00 11:15:00 [place] [employer] Luke s - Drive [facility] Medicine Medicine Outpati ent Clinics 2018-01-19 2018-01-19 [facility] [id number] 10:36:00 10:36:00 [place] [employer] Luke s - Drive [facility] Medicine l Medicine Outpati ent Clinics 2018-01-06 2018-01-06 [facility] [id number] 11:15:00 11:15:00 [place] [email or web address] s - Drive [facility] Out[facility] Clinics 2018-01-05 2018-01-05 [facility] [id number] 11:13:00 11:13:00 t [place] [facility] 2018-01-01 2018-01-01 [facility] [id number] [facility] 13:00:00 13:00:00 t Urgent Urgent Care L [facility] Outpat[facility] ent Clinics 2017-12-19 2017-12-19 [facility] [id number] 10:30:00 10:30:00 t [place] [facility] Clin[facility] 2017-09-18 2017-09-18 [facility] [id number] 09:00:00 09:00:00 t [place] [facility] Results This patient has no known results.
[2021-05-14] MEDS ORDERED: MORPHINE 4 MG/ML SYR ONE (01:01)
[2021-05-14] MEDS ORDERED: ONDANSETRON 4 MG/2 ML VIAL ONE (01:02)
[2021-05-14] MEDS ORDERED: ASPIRIN 325 MG TAB ONE (01:02)
[2021-05-14 01:41] LABS: Protime INR 0.97
[2021-05-14 01:44] LABS: Absolute Lymphocytes (CBC) 2.2 K/uL (0.7-4.9); Basophils % 0.5 % (0-1.3); MPV 9.5 fL (7.6-11.3); RBC Red Blood Cell Count 3.97 M/uL (3.86-4.86)
[2021-05-14 02:09] LABS: Albumin 3.1 g/dL (3.4-5.0); Bilirubin Direct 0.1 mg/dL (0-0.2); Bilirubin Total 0.4 mg/dL (0.2-1.0); Potassium 3.7 mmol/L (3.5-5.1); Protein, Total 7.2 g/dL (6.4-8.2)
[2021-05-14 02:11] LABS: Magnesium 1.3 mg/dL (1.8-2.4); Troponin (Emerg Dept Use Only) 0.6 ng/mL (0.0-0.045)
[2021-05-14] MEDS ORDERED: FENTANYL CITR 100 MCG/2 ML ONE (02:19)
[2021-05-14] MEDS ORDERED: NITROGLYCERIN 0.4 MG/TAB SL ONE (02:20)
[2021-05-14] MEDS ORDERED: MAGNESIUM SULFATE 1 gm IVPB 1 GM/100 ML BAG IV ONE (02:20)
--- NOTE | 2021-05-14 03:01 | ER ---
Nurse's Notes [facility] Name: Luz Nick Age: 55 yrs Sex: Female : 1965 Arrival Date: 05/14/2021 Time: 00:43 Bed 25 Private MD: Diagnosis: NSTEMI Presentation: 05/14 00:49 Chief complaint: Patient states: chest pain that started , had a chemical em stress test done on and was told it was good, also reports shortness of breath and nausea, described pain as burning. Coronavirus screen: Vaccine status: Patient reports being unvaccinated. Ebola Screen: Patient negative for fever greater than or equal to 101.5 degrees Fahrenheit, and additional compatible Ebola Virus Disease symptoms Patient denies exposure to infectious person. Patient denies travel to an Ebola-affected area in the 21 days before illness onset. No symptoms or risks identified at this time. Initial Sepsis Screen: Does the patient meet any 2 criteria? HR > 90 bpm. No. Patient's initial sepsis screen is negative. Does the patient have a suspected source of infection? No. Patient's initial sepsis screen is negative. Risk Assessment: Do you want to hurt yourself or someone else? Patient reports no desire to harm self or others. Onset of symptoms was May 14, 2021. 00:49 Method Of Arrival: Ambulatory em 00:49 Acuity: GORDY 2 em Historical: - Allergies: 00:50 PENICILLINS; em - PMHx: 00:50 Diabetes - NIDDM; Hypertension; Migraines; em - Social history:: Smoking status: Patient denies any tobacco usage or history of. Vital Signs: 00:49 BP 199 / 122; Pulse 116; Resp 22; Temp 98.2; Pulse Ox 100% on R/A; Pain 10/10; em 02:04 BP 111 / 89; Pulse 90; Resp 18; Temp 98.14; Pulse Ox 100% on R/A; bs2 03:37 Weight 70.31 kg; Height 2 ft. 3 in. (68.58 cm); Pain 4/10; mr2 04:14 BP 134 / 75; mr2 04:14 Pulse 89; Resp 17; Temp 98.1; Pulse Ox 100% on R/A; Pain 2/10; mr2 03:37 Body Mass Index 149.49 (70.31 kg, 68.58 cm) mr2 ED Course: 00:43 Patient arrived in ED. ja2 00:46 Odette Boucher RN is Primary Nurse. bs2 00:46 Jace Gr NP is PHCP. pm1 00:46 Amberly Lima MD is Attending Physician. pm1 00:50 Triage completed. em 00:50 Arm band placed on. em 01:14 Inserted saline lock: 20 gauge antecubital area, using aseptic technique. Blood oe collected. 01:24 XRAY Chest (1 view) In Process Unspecified. EDMS 03:01 Amberly Garcia MD is Hospitalizing Provider. pm1 Administered Medications: 01:20 Drug: Aspirin Chewable Tablet 324 mg Route: PO; mr2 01:20 Drug: morphine 4 mg Route: IVP; Site: right antecubital; mr2 01:20 Drug: Zofran (Ondansetron) 4 mg Route: IVP; Site: right antecubital; mr2 02:28 Drug: fentaNYL (PF) 25 mcg Route: IVP; Site: right antecubital; mr2 02:28 Drug: Magnesium Sulfate 1 grams Route: IVPB; Infused Over: 1 hrs; Site: right mr2 antecubital; 02:30 Drug: Nitroglycerin 0.4 mg Route: Sublingual; mr2 02:40 Drug: Nitroglycerin 0.4 mg Route: Sublingual; mr2 03:38 Drug: Insulin Regular Human 10 units {Co-Signature: bs2 (Odette Boucher RN).} Route: mr2 IVP; Site: right antecubital; 03:40 Drug: Lovenox (enoxaparin) 1 mg/kg Route: Sub-Q; Site: abdomen; mr2 03:42 Drug: Metoprolol TARTRATE 50 mg Route: PO; mr2 Outcome: 03:01 Decision to Hospitalize by Provider. pm1 05/15 16:32 Patient left the ED. bd Signatures: Dispatcher [employer] EDMS Rupinder Rodriguez Edgar, RN RN em Jace Gr, MERRITT CROWN IRONER OPERATOR pm1 Jim Negrete oe Odette Boucher RN RN bs2 Giuliana Martinez 2 Ascencion Strong RN RN mr2 Odette Boucher RN bs2 Corrections: (The following items were deleted from the chart) 05/14 03:40 03:39 Lovenox (enoxaparin) 1 mg/kg Sub-Q in abdomen mr2 mr2
--- NOTE | 2021-05-14 03:02 | EDPHYS ---
Physician Documentation [facility] Name: Luz Nick Age: 55 yrs Sex: Female : 1965 Arrival Date: 05/14/2021 Time: 00:43 Bed 25 Private MD: ED Physician Amberly Lima HPI: 05/14 01:09 This 55 yrs old Female presents to ER via Ambulatory with complaints of Chest pm1 Pain. 01:09 The patient or guardian reports chest pain that is located primarily in the mid-sternal pm1 area. Onset: 2 day(s) ago. The pain does not radiate. Associated signs and symptoms: Pertinent positives: nausea, SOB with exertion. The chest pain is described as burning. Duration: The patient or guardian reports a single episode, that is still ongoing. Modifying factors: the symptoms are aggravated by activity, walking. Severity of pain: in the emergency department the pain is actually worse. The patient has been recently seen by a physician: Had stress test last week. Patient reports she had difficulty completing the test and experienced shortness of breath during the stress test. Historical: - Allergies: 00:50 PENICILLINS; em - PMHx: 00:50 Diabetes - NIDDM; Hypertension; Migraines; em - Social history:: Smoking status: Patient denies any tobacco usage or history of. ROS: 01:09 Constitutional: Negative for fever, chills, and weight loss. pm1 01:09 Back: Negative for injury and pain, MS/Extremity: Negative for injury and deformity, Skin: Negative for injury, rash, and discoloration, Neuro: Negative for headache, weakness, numbness, tingling, and seizure. 01:09 Cardiovascular: Positive for chest pain, Negative for palpitations. 01:09 Respiratory: Positive for shortness of breath, on exertion. 01:09 Abdomen/GI: Positive for nausea, Negative for abdominal pain, vomiting, diarrhea. 01:09 All other systems are negative. Exam: 01:09 Constitutional: This is a well developed, well nourished patient who is awake, alert, pm1 and in no acute distress. Head/Face: Normocephalic, atraumatic. 01:09 Skin: Warm, dry with normal turgor. Normal color with no rashes, no lesions, and no evidence of cellulitis. MS/ Extremity: Pulses equal, no cyanosis. Neurovascular intact. Full, normal range of motion. 01:09 Chest/axilla: Exam negative for acute changes, Palpation: no acute changes. 01:09 Cardiovascular: Exam negative for acute changes, Rate: tachycardic, actual rate is 109 bpm, Rhythm: regular, Pulses: no pulse deficits are appreciated, Heart sounds: normal, normal S1and S2, Edema: is not appreciated. 01:09 Respiratory: Exam negative for acute changes, respiratory distress, shortness of breath, Breath sounds: are clear throughout. 01:09 Abdomen/GI: Exam negative for acute changes, Inspection: abdomen appears normal, Palpation: abdomen is soft and non-tender, in all quadrants. 01:09 Musculoskeletal/extremity: Exam is negative for acute changes, Extremities: grossly normal except: ROM: no acute changes, Circulation is intact in all extremities. 01:09 Neuro: Exam negative for acute changes, Orientation: is normal, Mentation: is normal, Motor: moves all fours. Vital Signs: 00:49 BP 199 / 122; Pulse 116; Resp 22; Temp 98.2; Pulse Ox 100% on R/A; Pain 10/10; em 02:04 BP 111 / 89; Pulse 90; Resp 18; Temp 98.14; Pulse Ox 100% on R/A; bs2 03:37 Weight 70.31 kg; Height 2 ft. 3 in. (68.58 cm); Pain 4/10; mr2 04:14 BP 134 / 75; mr2 04:14 Pulse 89; Resp 17; Temp 98.1; Pulse Ox 100% on R/A; Pain 2/10; mr2 03:37 Body Mass Index 149.49 (70.31 kg, 68.58 cm) mr2 MDM: 00:46 Patient medically screened. pm1 02:12 Data reviewed: vital signs. Data interpreted: Pulse oximetry: on room air is 100 %. pm1 Interpretation: normal. Counseling: I had a detailed discussion with the patient and/or guardian regarding: the historical points, exam findings, and any diagnostic results supporting the discharge/admit diagnosis, lab results, radiology results, the need for further work-up and treatment in the hospital. 03:00 ED course: 0/10 chest pain with nitro SL x 2. pm1 05/14 00:53 Order name: Basic Metabolic Panel; Complete Time: 02:15 pm1 05/14 00:53 Order name: CBC with Diff; Complete Time: 01:54 pm1 05/14 00:53 Order name: LFT's; Complete Time: 02:15 pm1 05/14 00:53 Order name: Magnesium; Complete Time: 02:15 pm1 05/14 00:53 Order name: NT PRO-BNP; Complete Time: 02:15 pm1 05/14 00:53 Order name: PT-INR; Complete Time: 01:54 pm1 05/14 00:53 Order name: Troponin (emerg Dept Use Only); Complete Time: 02:15 pm1 05/14 01:18 Order name: SARS-COV-2 RT PCR; Complete Time: 02:29 EDMS 05/14 07:14 Order name: Glucose, Ancillary Testing EDMS 05/14 09:36 Order name: Troponin I EDMS 05/14 09:36 Order name: Lipid Profile EDMS 05/14 09:36 Order name: T4 Free EDMS 05/14 09:36 Order name: Thyroid Stimulating Hormone EDMS 05/14 00:53 Order name: XRAY Chest (1 view) pm1 05/14 12:15 Order name: Glucose, Ancillary Testing EDMS 05/14 16:21 Order name: Troponin I EDMS 05/14 16:51 Order name: Magnesium EDMS 05/14 17:12 Order name: Urinalysis EDMS 05/14 17:17 Order name: Glucose, Ancillary Testing EDMS 05/14 23:23 Order name: Glucose, Ancillary Testing EDMS 05/15 04:21 Order name: CBC with Automated Diff EDMS 05/15 05:15 Order name: Comprehensive Metabolic Panel EDMS 05/15 05:15 Order name: Troponin I EDMS 05/15 05:15 Order name: NT PRO-BNP EDMS 05/15 05:15 Order name: Magnesium EDMS 05/15 06:23 Order name: Glucose, Ancillary Testing EDMS 05/15 11:51 Order name: Glucose, Ancillary Testing EDMS 05/14 00:53 Order name: EKG; Complete Time: 00:54 pm1 05/14 00:53 Order name: Cardiac monitoring; Complete Time: 01:00 pm1 05/14 00:53 Order name: EKG - Nurse/Tech; Complete Time: 01:00 pm1 05/14 00:53 Order name: IV Saline Lock pm1 05/14 00:53 Order name: Labs collected and sent pm1 05/14 00:53 Order name: O2 Per Protocol pm1 05/14 00:53 Order name: O2 Sat Monitoring pm1 05/14 02:56 Order name: NPO; Complete Time: 03:42 la1 Administered Medications: 01:20 Drug: Aspirin Chewable Tablet 324 mg Route: PO; mr2 01:20 Drug: morphine 4 mg Route: IVP; Site: right antecubital; mr2 01:20 Drug: Zofran (Ondansetron) 4 mg Route: IVP; Site: right antecubital; mr2 02:28 Drug: fentaNYL (PF) 25 mcg Route: IVP; Site: right antecubital; mr2 02:28 Drug: Magnesium Sulfate 1 grams Route: IVPB; Infused Over: 1 hrs; Site: right mr2 antecubital; 02:30 Drug: Nitroglycerin 0.4 mg Route: Sublingual; mr2 02:40 Drug: Nitroglycerin 0.4 mg Route: Sublingual; mr2 03:38 Drug: Insulin Regular Human 10 units {Co-Signature: bs2 (Odette Boucher RN).} Route: mr2 IVP; Site: right antecubital; 03:40 Drug: Lovenox (enoxaparin) 1 mg/kg Route: Sub-Q; Site: abdomen; mr2 03:42 Drug: Metoprolol TARTRATE 50 mg Route: PO; mr2 Disposition Summary: 05/14/21 03:01 Hospitalization Ordered Hospitalization Status: Inpatient Admission pm1 Provider: Amberly Garcia pm1 Condition: Stable pm1 Problem: new pm1 Symptoms: have improved pm1 Bed/Room Type: Standard pm1 Location: Telemetry/MedSurg (Inpatient)(05/15/21 14:39) bd Room Assignment: 214(05/15/21 14:39) bd Diagnosis - NSTEMI pm1 Forms: - Medication Reconciliation Form pm1 - SBAR form pm1 Signatures: Dispatcher [employer] Rupinder Arana Edgar, RN RN em Henrry Heck, SHELL COREMAKER-C SHELL COREMAKER-[facility] Gayla Godoy RN RN cg Marinas, Patrick, NP GLASSWARE FINISHER pm1 Ascencion Strong RN RN mr2 Odette Boucher RN bs2 Corrections: (The following items were deleted from the chart) 01:18 00:55 CORONAVIRUS+MRLEI.BRZ ordered. EDMS EDMS 03:47 03:01 Telemetry/MedSurg (Inpatient) pm1 cg 03:47 03:01 pm1 cg 05/15 14:39 11 03:47 [facility] ER [facility] cg bd 05/15 14:39 05/14 03:47 ERHOLD- cg bd
[2021-05-14] MEDS ORDERED: INSULIN -REGULAR HUMAN 50 UNIT/0.5 ML ML ONE ×3 (03:29→23:16)
[2021-05-14] MEDS ORDERED: METOPROLOL TAR 25 MG TAB ONE (03:44)
[2021-05-14] MEDS ORDERED: ENOXAPARIN 80 MG/0.8 ML SQ ONE ×2 (03:44→13:58)
--- NOTE | 2021-05-14 03:53 | P.HP ---
Certification for Inpatient Patient admitted to: Inpatient With expected LOS: >2 Midnights Patient will require the following post-hospital care: None Practitioner: I am a practitioner with admitting privileges, knowledge of patient current condition, hospital course, and medical plan of care. Services: Services provided to patient in accordance with Admission requirements found in Title 42 Section 412.3 of the Code of Federal Regulations <Henrry Heck - Last Filed: 05/14/21 03:50> Patient History Date of Service: 05/14/21 Primary Care Provider: Dr. Santana Reason for admission: NSTEMI History of Present Illness: 55-year-old female with history of hypertension, CAD, diabetes mellitus type 2, hyperlipidemia presents emergency department for chest pain. Patient reports that she had outpatient stress test on 05/09/2021, reports that she was told the results were "okay" but reports significant shortness of breath during exam. Patient reports ongoing intermittent chest pain since the next day pain is described as pressure-like associated with shortness of breath and episodic. Patient was evaluated in the emergency department labs significant for GFR 56 glucose 479 magnesium 1.3 troponin 0.6 BNP 255 Covid test negative EKG without ST segment elevation ED provider wishes to admit for NSTEMI. Patient's last heart catheterization was in 2018 of the circumflex. Last echocardiogram also in 2018 demonstrated normal EF. - Past Medical/Surgical History Diabetic: Yes -: HTN -: Diabetes mellitus type 2 -: Chronic back Pain -: Hyperlipidemia -: Anxiety -: Obesity -: migranes -: CAD -: -: mary Psychosocial/ Personal History: Patient lives at home with family - Family History Mother -: Hypertension, Diabetes Father -: Heart disease Brother -: Heart disease, Hypertension, Diabetes - Social History Smoking Status: Never smoker Alcohol use: No CD- Drugs: No Caffeine use: Yes Place of Residence: Home <Henrry Heck - Last Filed: 05/14/21 03:50> Date of Service: 05/14/21 <Amberly Garcia - Last Filed: 05/17/21 10:30> Allergies Penicillins Allergy (Verified 01/14/18 01:00) Shortness of breath Home Medications: Duloxetine HCl [Cymbalta] 60 mg PO BID 01/13/18 Insulin Aspart [Novolog Flexpen] 10 units SQ SEECOM 01/13/18 Insulin Glargine,Hum.rec.anlog [Basaglar Kwikpen U-100] 32 unit SQ DAILY 01/13/18 Metformin HCl 1,000 mg PO BID 01/13/18 Rosuvastatin [Crestor*] 20 mg PO DAILY 01/13/18 Topiramate 100 mg PO BID 01/13/18 carvediloL [Carvedilol] 25 mg PO BID 01/13/18 cloNIDine HCL [Catapres] 0.3 mg PO TID 01/13/18 Aspirin Chewable [Aspirin Chewable*] 81 mg PO DAILY #90 tab.chew 01/16/18 Cyclobenzaprine [Flexeril*] 10 mg PO DAILY 05/15/21 traMADol HCL [Ultram*] 50 mg PO BEDTIME 05/15/21 Review of Systems 10-point ROS is otherwise unremarkable Respiratory: Shortness of Breath Cardiovascular: Chest Pain <Henrry Heck - Last Filed: 05/14/21 03:50> Physical Examination - Physical Exam General: Alert, In no apparent distress, Oriented x3 HEENT: Atraumatic, PERRLA, Mucous membr. moist/pink, EOMI, Sclerae nonicteric Neck: Supple, 2+ carotid pulse no bruit, No LAD, Without JVD or thyroid abnormality Respiratory: Clear to auscultation bilaterally, Normal air movement Cardiovascular: Regular rate/rhythm, Normal S1 S2 Gastrointestinal: Normal bowel sounds, No tenderness Musculoskeletal: No tenderness Integumentary: No rashes Neurological: Normal speech, Normal strength at 5/5 x4 extr, Normal tone, Normal affect - Studies Laboratory Data (last 24 hrs) 05/14/21 01:10: PT 11.2, INR 0.97 05/14/21 01:10: WBC 9.90, Hgb 10.8 L, Hct 33.0 L, Plt Count 212 05/14/21 01:10: Sodium 139, Potassium 3.7, BUN 13, Creatinine 1.03, Glucose 479 H*, Magnesium 1.3 L*, Total Bilirubin 0.4, AST 12 L, ALT 16, Alkaline Phosphatase 173 H <Henrry Heck - Last Filed: 05/14/21 03:50> Assessment and Plan - Plan Assessment: NSTEMI suspect ACS history of CAD Diabetes mellitus type 2 with hyperglycemia Hypomagnesemia Hypertension Hyperlipidemia Plan: NSTEMI suspect ACS history of CAD: Trend troponin, monitor on telemetry, n.p.o. in case of intervention, full dose Lovenox, aspirin, beta-jose, statin therapy. Cardiology consult in place. Last cath 2018 with stent to the circumflex last echo 2018 normal EF. Will reorder echocardiogram. Diabetes mellitus type 2 with hyperglycemia: [facility] Accu-Chek, sliding scale insulin therapy. Patient takes Basaglar 32 units nightly plus NovoLog 10 units before each meal. Will provide with 20 days of Lantus nightly in addition to sliding scale. A1c. Hypomagnesemia: Protocol in place Hypertension: Home medications continued Hyperlipidemia: Home medications continued DVT PPX: Full dose Lovenox Code status: Full code Discharge Plan: Home Plan to discharge in: 48 Hours - Advance Directives Does patient have a Living Will: No Does patient have a Durable POA for Healthcare: No - Code Status/Comfort Care Code Status Assessed: Yes (Full code) Critical Care: No Time Spent Managing Pts Care (In Minutes): 55 <Henrry Heck - Last Filed: 05/14/21 03:50> - Problems (Diagnosis) (1) NSTEMI (non-ST elevated myocardial infarction) Current Visit: No Status: Acute (2) Myalgia after COVID-19 vaccination Current Visit: Yes Status: Acute (3) Diabetes Onset Date: 01/14/18 Current Visit: No Status: Acute Qualifiers: Diabetes mellitus type: type 2 Diabetes mellitus terminal manager insulin use: with terminal manager use Diabetes mellitus complication status: without complication Qualified Code(s): E11.9 - Type 2 diabetes mellitus without complications; Z79.4 - snf (current) use of insulin (4) Hyperlipidemia Onset Date: 01/14/18 Current Visit: No Status: Acute Qualifiers: Hyperlipidemia type: mixed hyperlipidemia Qualified Code(s): E78.2 - Mixed hyperlipidemia (5) HTN (hypertension) Onset Date: 01/14/18 Current Visit: No Status: Chronic Qualifiers: Hypertension type: essential hypertension Qualified Code(s): I10 - Essential (primary) hypertension <Amberly Garcia - Last Filed: 05/17/21 10:30> Date of Service: 05/14/21 Subjective HPI as mentioned above Review of Systems 10-point ROS is otherwise unremarkable Physical Examination - Vital Signs Reviewed - Physical Exam General: Alert, In no apparent distress Respiratory: Clear to auscultation bilaterally, Normal air movement Cardiovascular: Regular rate/rhythm, Normal S1 S2 Gastrointestinal: Normal bowel sounds, No tenderness Neurological: Normal speech, Normal tone, Normal affect Assessment & Plan - Problems (Diagnosis) (1) NSTEMI (non-ST elevated myocardial infarction) Current Visit: No Status: Acute (2) Myalgia after COVID-19 vaccination Current Visit: Yes Status: Acute (3) Diabetes Onset Date: 01/14/18 Current Visit: No Status: Acute Qualifiers: Diabetes mellitus type: type 2 Diabetes mellitus detention insulin use: with terminal manager use Diabetes mellitus complication status: without complication Qualified Code(s): E11.9 - Type 2 diabetes mellitus without complications; Z79.4 - snf (current) use of insulin (4) Hyperlipidemia Onset Date: 01/14/18 Current Visit: No Status: Acute Qualifiers: Hyperlipidemia type: mixed hyperlipidemia Qualified Code(s): E78.2 - Mixed hyperlipidemia (5) HTN (hypertension) Onset Date: 01/14/18 Current Visit: No Status: Chronic Qualifiers: Hypertension type: essential hypertension Qualified Code(s): I10 - Essential (primary) hypertension - Plan Continue with plan of care as mentioned below: 1. Serial troponins and EKG 2. Appreciate Cardiology consultation 3. Echocardiogram and stress test if cardiology is agreeable 4. Anti-platelet therapy, anti coagulation, beta-jose, statin, and O2 as needed 5. IV morphine for pain 6. Nitro p.r.n. <Amberly Garcia - Last Filed: 05/17/21 10:30>
[2021-05-14] MEDS ORDERED: D50W 25 GM/50 ML SYRINGE IV PRN (04:25)
[2021-05-14] MEDS ORDERED: GLUCAGON 1 MG/VIAL IM PRN (04:25)
[2021-05-14] MEDS ORDERED: ONDANSETRON 4 MG/2 ML VIAL IV PRN (04:25)
[2021-05-14] MEDS ORDERED: carvediloL 25 MG TAB PO SCH (06:00)
[2021-05-14] MEDS ORDERED: D5 0.45 NS 1,000 ML IV ONE ×2 (06:49→20:08)
[2021-05-14] MEDS: D5 0.45 NS 1,000 ML IV SCH ×2 (06:52→17:09)
--- NOTE | 2021-05-14 07:24 | RAD REPORT ---
EXAM DESCRIPTION: RAD - Chest Single View - 05/14/2021 1:24 am CLINICAL HISTORY: CHEST PAIN COMPARISON: Chest Single View dated 07/20/2019; Chest Single View dated 01/26/2019; Chest Pa And Lat ( 2 Views) dated 01/13/2018; CHEST PA AND LAT 2 VIEW dated 06/04/2015 FINDINGS: Lines: None. Lungs: No evidence of edema or pneumonia. Pleural: No significant pleural effusions or pneumothorax. Cardiac: The heart size is within normal limits. Bones: No acute fractures. Other: IMPRESSION: No acute cardiopulmonary disease.
[2021-05-14] MEDS: INSULIN -REGULAR HUMAN 50 UNIT/0.5 ML ML SQ SCH ×4 (09:01→21:00)
[2021-05-14] MEDS ORDERED: Magnesium Sulfate 2gm IVPB 2 G/50 ML BAG IV ONE ×2 (09:03→09:06)
[2021-05-14] MEDS ORDERED: carvediloL 6.25 MG TAB ONE ×2 (09:03→23:13)
[2021-05-14] MEDS ORDERED: ASPIRIN EC 81 MG TAB PO ONE (09:03)
[2021-05-14] MEDS ORDERED: KCL 20 MEQ/100 mL IVPB 20 MEQ/100 ML BAG IV ONE (09:04)
[2021-05-14] MEDS: ASPIRIN EC 81 MG TAB PO SCH (09:04)
[2021-05-14 09:14] VITALS: BMI 23.6
[2021-05-14 09:26] LABS: Thyroid Stimulating Hormone 0.711 uIU/mL (0.360-3.740)
[2021-05-14 09:36] LABS: Troponin I 2.22 ng/mL (0.0-0.045)
[2021-05-14] MEDS ORDERED: KCL 20 MEQ/100 mL IVPB 20 MEQ/100 ML BAG IV SCH (10:00)
[2021-05-14] MEDS ORDERED: INFLUENZA VACCINE (for 6+ mo) 0.5 ML DOSE IMVAC ONE ×2 (13:00→13:59)
[2021-05-14] MEDS: ENOXAPARIN 80 MG/0.8 ML SQ SCH (14:02)
[2021-05-14 17:12] LABS: Urine Appearance Clear (Clear); Urine Bilirubin Negative (Negative); Urine Blood Negative (Negative); Urine Color Yellow (Yellow); Urine Glucose Negative (Negative); Urine Protein Negative (Negative); Urine Specific Gravity 1.015 (1.005-1.030); Urine Urobilinogen 0.2 mg/dL (0.2-1.0)
[2021-05-14 17:16] LABS: Urine Microscopic Reflex NO UMIC
--- NOTE | 2021-05-14 17:28 | P.PN ---
Subjective Date of Service: 05/14/21 Troponin remains elevated. However, patient when the chest pain. Recent stress test was unremarkable. Patient recently had 2nd dose of COVID-19 vaccination. Patient may have some myocarditis as well. Cardiology to see the patient and possible cardiac catheterization. Review of Systems 10-point ROS is otherwise unremarkable Physical Examination - Vital Signs Temperature: 97.8 F Blood Pressure: 149/68 Pulse: 89 Respirations: 18 Pulse Ox (%): 100 - Physical Exam General: Alert, In no apparent distress HEENT: Atraumatic, PERRLA, EOMI Neck: Supple, JVD not distended Respiratory: Clear to auscultation bilaterally, Normal air movement Cardiovascular: Regular rate/rhythm, Normal S1 S2 Gastrointestinal: Normal bowel sounds, No tenderness Musculoskeletal: No tenderness Integumentary: No rashes Neurological: Normal speech, Normal tone, Normal affect Lymphatics: No axilla or inguinal lymphadenopathy - Studies Laboratory Data (last 24 hrs) 05/14/21 01:10: PT 11.2, INR 0.97 05/14/21 01:10: WBC 9.90, Hgb 10.8 L, Hct 33.0 L, Plt Count 212 05/14/21 01:10: Sodium 139, Potassium 3.7, BUN 13, Creatinine 1.03, Glucose 479 H*, Magnesium 1.3 L*, Total Bilirubin 0.4, AST 12 L, ALT 16, Alkaline Phosphatase 173 H Medications List Reviewed: Yes Assessment & Plan - Problems (Diagnosis) (1) NSTEMI (non-ST elevated myocardial infarction) Current Visit: No Status: Acute (2) Myalgia after COVID-19 vaccination Current Visit: Yes Status: Acute (3) Diabetes Onset Date: 01/14/18 Current Visit: No Status: Acute Qualifiers: Diabetes mellitus type: type 2 Diabetes mellitus residential insulin use: with residential use Diabetes mellitus complication status: without complication Qualified Code(s): E11.9 - Type 2 diabetes mellitus without complications; Z79.4 - shelter (current) use of insulin (4) Hyperlipidemia Onset Date: 01/14/18 Current Visit: No Status: Acute Qualifiers: Hyperlipidemia type: mixed hyperlipidemia Qualified Code(s): E78.2 - Mixed hyperlipidemia (5) HTN (hypertension) Onset Date: 01/14/18 Current Visit: No Status: Chronic Qualifiers: Hypertension type: essential hypertension - Plan 1. Troponins remain elevated 2. Appreciate Cardiology consultation 3. Echocardiogram pending. 4. Anti-platelet therapy, anti coagulation, beta-jose, statin, and O2 as needed 5. IV morphine for pain 6. Nitro p.r.n. 7. Recent stress test was unremarkable. May be related to vaccination. - Advance Directives Does patient have a Living Will: No Does patient have a Durable POA for Healthcare: No
[2021-05-14] MEDS ORDERED: INSULIN GLARGINE 100 UNITS/ML SQ SCH (21:00)
[2021-05-14] MEDS: ROSUVASTATIN 10 MG TAB PO SCH (21:00)
[2021-05-14] MEDS: carvediloL 25 MG TAB PO SCH (21:00)
[2021-05-14] MEDS ORDERED: INSULIN GLARGINE 100 UNITS/ML SQ ONE (23:33)
[2021-05-15] MEDS ORDERED: D5 0.45 NS 1,000 ML IV ONE ×2 (00:19→09:46)
[2021-05-15] MEDS ORDERED: TRAZODONE 50 MG TABLET PO PRN (02:01)
[2021-05-15] MEDS ORDERED: TRAZODONE 50 MG TABLET ONE (02:21)
[2021-05-15] MEDS: ENOXAPARIN 80 MG/0.8 ML SQ SCH ×2 (03:00→14:51)
[2021-05-15 04:12] LABS: Absolute Lymphocytes (CBC) 3.2 K/uL (0.7-4.9); Basophils % 0.5 % (0-1.3); Hematocrit 35.7 % (36.0-45.0); MPV 9.2 fL (7.6-11.3); RBC Red Blood Cell Count 4.38 M/uL (3.86-4.86)
[2021-05-15 05:12] LABS: Albumin 3.2 g/dL (3.4-5.0); Bilirubin Total 0.3 mg/dL (0.2-1.0); Magnesium 1.7 mg/dL (1.8-2.4); Potassium 3.5 mmol/L (3.5-5.1); Protein, Total 7.6 g/dL (6.4-8.2)
[2021-05-15 05:14] LABS: Troponin I 7.68 ng/mL (0.0-0.045)
[2021-05-15] MEDS: INSULIN -REGULAR HUMAN 50 UNIT/0.5 ML ML SQ SCH ×4 (06:53→20:46)
--- NOTE | 2021-05-15 07:05 | ECHO ---
HEIGHT: 5 ft 8 in WEIGHT: 155 lb 0.112 oz DATE OF STUDY: 05/14/[address]: Henrry Heck NP 2-DIMENSIONAL: YES M.MODE: YES DOPPLER: YES COLOR FLOW: YES TDS: PORTABLE: DEFINITY: BUBBLE STUDY: DIAGNOSIS: NON ST ELEVATION MYOCARDIAL INFARCTION CARDIAC HISTORY: CATHERIZATION: SURGERY: PROSTHETIC VALVE: PACEMAKER: MEASUREMENTS (cm) DIASTOLIC (NORMALS) SYSTOLIC (NORMALS) IVSd 1.0 (0.6-1.2) LA Diam 3.8 (1.9-4.0) LVEF 55-60% LVIDd 4.1 (3.5-5.7) LVIDs 2.6 (2.0-3.5) %FS 37% LVPWd 1.1 (0.6-1.2) Ao Diam 2.5 (2.0-3.7) 2 DIMENSIONAL ASSESSMENT: RIGHT ATRIUM: NORMAL LEFT ATRIUM: NORMAL RIGHT VENTRICLE: NORMAL LEFT VENTRICLE: NORMAL TRICUSPID VALVE: NORMAL MITRAL VALVE: NORMAL PULMONIC VALVE: NORMAL AORTIC VALVE: MILD AORTIC INSUFFIENCY PERICARDIAL EFFUSION: NONE AORTIC ROOT: NORMAL LEFT VENTRICULAR WALL MOTION: NORMAL DOPPLER/COLOR FLOW: MILD AORTIC INSUFFIENCY COMMENTS: NORMAL LEFT VENTRICULAR EJECTION FRACTION 55-60%. NORMAL WALL MOTION. MILD AORTIC INSUFFIENCY. TECHNOLOGIST: MARYAN ARCHER
[2021-05-15] MEDS ORDERED: COLCHICINE 0.6 MG TAB PO ONE (08:06)
[2021-05-15] MEDS ORDERED: ASPIRIN EC 81 MG TAB PO ONE (08:36)
[2021-05-15] MEDS ORDERED: CLOPIDOGREL 75 MG TABLET ONE (08:36)
[2021-05-15] MEDS: carvediloL 25 MG TAB PO SCH ×2 (10:15→20:45)
[2021-05-15] MEDS: D5 0.45 NS 1,000 ML IV SCH ×2 (10:15→20:25)
[2021-05-15] MEDS: CLOPIDOGREL 75 MG TABLET PO SCH (10:15)
[2021-05-15] MEDS: ASPIRIN EC 81 MG TAB PO SCH (10:16)
[2021-05-15] MEDS ORDERED: COLCHICINE 0.6 MG TAB ONE (10:18)
[2021-05-15] MEDS: COLCHICINE 0.6 MG TAB PO SCH ×2 (10:19→20:44)
[2021-05-15] MEDS ORDERED: INSULIN -REGULAR HUMAN 50 UNIT/0.5 ML ML ONE (11:47)
[2021-05-15] MEDS ORDERED: METHYLPREDNISOLONE 40 MG INJ ONE (11:48)
[2021-05-15] MEDS: METHYLPREDNISOLONE 40 MG INJ IV SCH ×2 (11:51→18:49)
[2021-05-15] MEDS ORDERED: HYDROCODONE/APAP 10/325 TAB ONE (13:07)
[2021-05-15] MEDS ORDERED: cloNIDine HCL 0.1 MG TAB ONE (13:07)
[2021-05-15] MEDS: HYDROCODONE/APAP 10/325 TAB PO PRN (13:08)
[2021-05-15] MEDS: CLONIDINE HCL 0.3 MG TAB PO SCH ×2 (13:10→20:44)
[2021-05-15] MEDS ORDERED: ENOXAPARIN 80 MG/0.8 ML SQ ONE (14:50)
[2021-05-15] MEDS: ROSUVASTATIN 10 MG TAB PO SCH (20:45)
[2021-05-15] MEDS: INSULIN GLARGINE 100 UNIT/ML SQ SCH (20:47)
[2021-05-15] MEDS: DULOXETINE 30 MG CAP PO SCH (21:59)
[2021-05-16] MEDS ORDERED: PANTOPRAZOLE 40MG TABLET PO ONE ×3 (00:24→00:46)
[2021-05-16] MEDS: METHYLPREDNISOLONE 40 MG INJ IV SCH ×4 (00:56→17:31)
[2021-05-16] MEDS: HYDRALAZINE HCL 20 MG/ML VIAL IV PRN (00:57)
[2021-05-16] MEDS: ENOXAPARIN 80 MG/0.8 ML SQ SCH ×2 (01:43→17:31)
[2021-05-16] MEDS: D5 0.45 NS 1,000 ML IV SCH (02:57)
[2021-05-16 04:33] LABS: Bilirubin Total 0.4 mg/dL (0.2-1.0); Potassium 3.5 mmol/L (3.5-5.1); Protein, Total 7.4 g/dL (6.4-8.2)
[2021-05-16] MEDS: carvediloL 25 MG TAB PO SCH ×2 (06:14→21:00)
[2021-05-16] MEDS: CLONIDINE HCL 0.3 MG TAB PO SCH ×3 (06:14→21:00)
[2021-05-16] MEDS: ASPIRIN EC 81 MG TAB PO SCH (06:15)
[2021-05-16] MEDS: CLOPIDOGREL 75 MG TABLET PO SCH (06:15)
[2021-05-16] MEDS ORDERED: KCL 20 MEQ/100 mL IVPB 20 MEQ/100 ML BAG IV SCH (08:00)
[2021-05-16] MEDS: INSULIN -REGULAR HUMAN 50 UNIT/0.5 ML ML SQ SCH ×4 (08:45→21:00)
[2021-05-16] MEDS: DULOXETINE 30 MG CAP PO SCH ×3 (09:00→21:08)
[2021-05-16] MEDS: COLCHICINE 0.6 MG TAB PO SCH ×2 (09:00→21:07)
--- NOTE | 2021-05-16 11:14 | P.PN ---
Date of Service: 05/15/21 Subjective Spoke with Cardiology. Since echocardiogram is unremarkable then conservative management will be recommended. Recent stress test was unremarkable as well. Most likely related to myocarditis. Continue monitoring patient closely. Review of Systems 10-point ROS is otherwise unremarkable Physical Examination - Vital Signs Reviewed - Physical Exam General: Alert, In no apparent distress Respiratory: Clear to auscultation bilaterally, Normal air movement Cardiovascular: Regular rate/rhythm, Normal S1 S2 Gastrointestinal: Normal bowel sounds, No tenderness Neurological: Normal speech, Normal tone, Normal affect Assessment & Plan - Problems (Diagnosis) (1) NSTEMI (non-ST elevated myocardial infarction) Current Visit: No Status: Acute (2) myocarditis after COVID-19 vaccination Current Visit: Yes Status: Acute (3) Diabetes Onset Date: 01/14/18 Current Visit: No Status: Acute Qualifiers: Diabetes mellitus type: type 2 Diabetes mellitus penitentiary insulin use: with terminal clerk use Diabetes mellitus complication status: without complication Qualified Code(s): E11.9 - Type 2 diabetes mellitus without complications; Z79.4 - salvage determiner (current) use of insulin (4) Hyperlipidemia Onset Date: 01/14/18 Current Visit: No Status: Acute Qualifiers: Hyperlipidemia type: mixed hyperlipidemia Qualified Code(s): E78.2 - Mixed hyperlipidemia (5) HTN (hypertension) Onset Date: 01/14/18 Current Visit: No Status: Chronic Qualifiers: Hypertension type: essential hypertension Qualified Code(s): I10 - Essential (primary) hypertension - Plan Continue plan of care as mentioned below: 1. Repeat troponin tomorrow 2. Appreciate Cardiology consultation; no cardiac catheterization at this time 3. echocardiogram was completed. The wall motion abnormality. Recent stress test was negative. 4. Anti-platelet therapy, anti coagulation, beta-jose, statin, and O2 as needed 5. IV morphine for pain 6. Nitro p.r.n. 7. May be related to myocarditis after vaccination. - Advance Directives Does patient have a Living Will: No Does patient have a Durable POA for Healthcare: No
[2021-05-16] MEDS ORDERED: INFLUENZA VACCINE (for 6+ mo) 0.5 ML DOSE IMVAC ONE (13:00)
[2021-05-16] MEDS: HYDROCODONE/APAP 10/325 TAB PO PRN (17:48)
[2021-05-16] MEDS: INSULIN GLARGINE 100 UNIT/ML SQ SCH (21:00)
[2021-05-16] MEDS: ROSUVASTATIN 10 MG TAB PO SCH (21:07)
[2021-05-17] MEDS: METHYLPREDNISOLONE 40 MG INJ IV SCH ×2 (00:26→05:30)
[2021-05-17] MEDS: HYDROCODONE/APAP 10/325 TAB PO PRN (00:36)
[2021-05-17] MEDS: ENOXAPARIN 80 MG/0.8 ML SQ SCH (03:10)
[2021-05-17 04:08] LABS: Albumin 2.9 g/dL (3.4-5.0); Bilirubin Total 0.2 mg/dL (0.2-1.0); Potassium 4.1 mmol/L (3.5-5.1); Protein, Total 6.9 g/dL (6.4-8.2)
[2021-05-17] MEDS: HYDRALAZINE HCL 20 MG/ML VIAL IV PRN (04:17)
[2021-05-17] MEDS: INSULIN -REGULAR HUMAN 50 UNIT/0.5 ML ML SQ SCH ×2 (08:29→11:30)
[2021-05-17] MEDS: ASPIRIN EC 81 MG TAB PO SCH (08:30)
[2021-05-17] MEDS: CLONIDINE HCL 0.3 MG TAB PO SCH (08:30)
[2021-05-17] MEDS: carvediloL 25 MG TAB PO SCH (08:31)
[2021-05-17] MEDS: CLOPIDOGREL 75 MG TABLET PO SCH (08:32)
[2021-05-17] MEDS: COLCHICINE 0.6 MG TAB PO SCH (08:35)
--- NOTE | 2021-05-17 10:33 | P.PN ---
Date of Service: 05/16/21 Subjective Patient continues to do well. Patient's chest pain has improved. Troponins are decreasing. Possible discharge in the morning Review of Systems 10-point ROS is otherwise unremarkable Physical Examination - Vital Signs Reviewed - Physical Exam General: Alert, In no apparent distress Respiratory: Clear to auscultation bilaterally, Normal air movement Cardiovascular: Regular rate/rhythm, Normal S1 S2 Gastrointestinal: Normal bowel sounds, No tenderness Neurological: Normal speech, Normal tone, Normal affect Assessment & Plan - Problems (Diagnosis) (1) NSTEMI (non-ST elevated myocardial infarction) Current Visit: No Status: Acute (2) myocarditis after COVID-19 vaccination Current Visit: Yes Status: Acute (3) Diabetes Onset Date: 01/14/18 Current Visit: No Status: Acute Qualifiers: Diabetes mellitus type: type 2 Diabetes mellitus [employer] professor insulin use: with [employer] professor use Diabetes mellitus complication status: without complication Qualified Code(s): E11.9 - Type 2 diabetes mellitus without complications; Z79.4 - whizzer (current) use of insulin (4) Hyperlipidemia Onset Date: 01/14/18 Current Visit: No Status: Acute Qualifiers: Hyperlipidemia type: mixed hyperlipidemia Qualified Code(s): E78.2 - Mixed hyperlipidemia (5) HTN (hypertension) Onset Date: 01/14/18 Current Visit: No Status: Chronic Qualifiers: Hypertension type: essential hypertension Qualified Code(s): I10 - Essential (primary) hypertension - Plan Continue plan of care as mentioned below: 1. Troponin continues to go down. 2. Appreciate Cardiology consultation; no cardiac catheterization at this time; outpatient follow-up per Cardiology 3. echocardiogram was completed. No wall motion abnormality. Recent stress test was negative. 4. Anti-platelet therapy, anti coagulation, beta-jose, statin, and O2 as needed 5. IV morphine for pain 6. Nitro p.r.n. 7. May be related to myocarditis after vaccination. - Advance Directives Does patient have a Living Will: No Does patient have a Durable POA for Healthcare: No
--- NOTE | 2021-05-17 10:35 | P.DS ---
Discharge Date: 05/17/21 Primary Care Provider: Dr. 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 Patient has a history of COVID-19 vaccination. Patient troponin was elevated. Patient recently had coated vaccination. Since patient recently had a stress test that was unremarkable and multiple echoes that are unremarkable cardiology wants to do conservative management. Patient will have outpatient follow-up. Troponins are decreasing. Continue with anti-platelet and statin therapy. Patient will follow with Cardiology as an outpatient. No intervention was recommended per Cardiology at this time. Hospital Course: Patient is a 55-year-old female came to the hospital with elevated troponin. Patient has a history of COVID-19 vaccination. Patient troponin was elevated. Patient recently had coated vaccination. Since patient recently had a stress test that was unremarkable and multiple echoes that are unremarkable cardiology wants to do conservative management. Patient will have outpatient follow-up. Troponins are decreasing. Continue with anti-platelet and statin therapy. Patient will follow with Cardiology as an outpatient. No intervention was recommended per Cardiology at this time. Patient is stable for discharge home. Vital Signs/Physical Exam: Temp Pulse Resp BP Pulse Ox 97.8 F 89 18 149/68 H 100 05/17/21 10:32 05/17/21 10:32 05/17/21 10:32 05/17/21 10:32 05/17/21 10:32 General: Alert, In no apparent distress, Oriented x3 Laboratory Data at Discharge: WBC 12.40 K/uL (4.3-10.9) H D 05/15/21 03:53 Hgb 11.8 g/dL (12.0-15.0) L 05/15/21 03:53 Hct 35.7 % (36.0-45.0) L 05/15/21 03:53 Plt Count 245 K/uL (152-406) 05/15/21 03:53 PT 11.2 SECONDS (9.5-12.5) 05/14/21 01:10 INR 0.97 05/14/21 01:10 Sodium 140 mmol/L (136-145) 05/17/21 03:35 Potassium 4.1 mmol/L (3.5-5.1) 05/17/21 03:35 BUN 15 mg/dL (7-18) 05/17/21 03:35 Creatinine 0.91 mg/dL (0.55-1.3) 05/17/21 03:35 Glucose 283 mg/dL (74-106) H 05/17/21 03:35 Magnesium Cancelled 05/15/21 06:00 Total Bilirubin 0.2 mg/dL (0.2-1.0) 05/17/21 03:35 AST 11 U/L (15-37) L 05/17/21 03:35 ALT 16 U/L (12-78) 05/17/21 03:35 Alkaline Phosphatase 133 U/L (45-117) H 05/17/21 03:35 Troponin I 3.19 ng/mL (0.0-0.045) H* 05/16/21 11:25 Triglycerides 212 mg/dL (<150) H 05/14/21 08:45 Cholesterol 106 mg/dL (<200) 05/14/21 08:45 HDL Cholesterol 31 mg/dL (40-60) L 05/14/21 08:45 Cholesterol/HDL Ratio 3.42 05/14/21 08:45 Home Medications: Duloxetine HCl [Cymbalta] 60 mg PO BID 01/13/18 Insulin Aspart [Novolog Flexpen] 10 units SQ SEECOM 01/13/18 Insulin Glargine,Hum.rec.anlog [Basaglar Kwikpen U-100] 32 unit SQ DAILY 01/13/18 Metformin HCl 1,000 mg PO BID 01/13/18 Rosuvastatin [Crestor*] 20 mg PO DAILY 01/13/18 Topiramate 100 mg PO BID 01/13/18 carvediloL [Carvedilol] 25 mg PO BID 01/13/18 cloNIDine HCL [Catapres] 0.3 mg PO TID 01/13/18 Aspirin Chewable [Aspirin Chewable*] 81 mg PO DAILY #90 tab.chew 01/16/18 Cyclobenzaprine [Flexeril*] 10 mg PO DAILY 05/15/21 traMADol HCL [Ultram*] 50 mg PO BEDTIME 05/15/21 Physician Discharge Instructions: OK TO DC IV AND DC HOME FOLLOW-UP WITH PRIMARY CARE PROVIDER IN 1-2 WEEKS FOLLOW-UP WITH CARDIOLOGY IN 1-2 WEEKS RETURN TO THE ER IF symptoms worsen CALL or TEXT DR. JARAMILLO AT [phone] IF ANY QUESTIONS REGARDING HOSPITAL STAY. PLEASE CALL THE FLOOR AT [phone] IF ANY MEDICATION OR NURSING QUESTIONS. Diet: AHA Activity: Fall precautions Followup: Irish Santana DO [Primary Care Provider] - Time spent managing pt's care (in minutes): 35
[2021-05-17 11:46] VITALS: O2SAT 97
[2021-05-17 12:28] VITALS: BP 127/70; TEMP 97.9
--- NOTE | 2021-05-21 10:06 | CON ---
Reason For Consultation: Non-STEMI. History Of Present Illness: Ms. Nick is a 55-year-old woman, who has had a history of coronary art jj disease. She had a stent in 2018 of the circumflex and 2020. Recently, she had a stress test th at was normal. Comes in with nonspecific complaint. No chest pain per se, more shortness of breath, weakness, dizziness. Now was found to have a troponin of 0.6, but her glucose was almost 500. Her magnesium was low at 1.3. She weighed 276 pounds. She is pain free when I talked to her. Past Medical History: Includes hypertension, dyslipidemia, coronary artery disease, diabetes, anxiet y, and obesity. Review of Systems: Negative. Social History: Negative. Family History: Negative. Allergies: INCLUDE PENICILLIN. Medications: At home include aspirin, insulin, Crestor, Coreg, clonidine, metformin, and Effient. Physical Examination: Vital Signs: She weighed 276 pounds. HEENT: Negative. Neck: Supple with no bruit. Chest: Clear. Cardiac: Revealed a regular rhythm and rate with S4 gallops. Abdomen: Obese. Extremities: Revealed no clubbing, cyanosis. She had trace edema. Diagnostic Data: As stated earlier. Impression And Plan: Elevated troponin maybe secondary to demand ischemia from low magnesium and sev ere uncontrolled diabetes. I am not impressed chest pain. She just had a stress test rece ntly 2 to 3 months that was normal. I would continue her present regimen, control her diabetes, chec k her magnesium. I would like to get an echocardiogram and if that shows any wall motion abnormaliti es, I will proceed with a catheterization. For now, we will continue her present regimen. Her blood pressure needs to be better controlled. Her diabetes needs to be better controlled. Her dyslipidem ia is controlled on Crestor. I will continue to follow her along with Dr. Garcia. The case was discus sed with him. NB/MODL Voice ID: [id number] Report ID: [id number]
== END 2021-05-17 13:36 | disposition home or self-care (01) | DRG 282 ==
LOC: ER 00:38 → ERHOLD 03:46 → 2ND 05-15 16:25
PROVIDERS: ADMIT Hospitalist; ATTEND Hospitalist
DX: I51.4 Myocarditis, unspecified (principal); I21.4 Non-ST elevation (NSTEMI) myocardial infarction; E11.65 Type 2 diabetes mellitus with hyperglycemia; E83.42 Hypomagnesemia; I10 Essential (primary) hypertension; M79.10 Myalgia, unspecified site; T50.B95A Adverse effect of other viral vaccines, initial encounter; E78.2 Mixed hyperlipidemia; I25.10 Atherosclerotic heart disease of native coronary artery without angina pectoris; E66.9 Obesity, unspecified; Z68.23 Body mass index [BMI] 23.0-23.9, adult; Z79.4 Long term (current) use of insulin; Z88.0 Allergy status to penicillin; Z23 Encounter for immunization; Z20.822 Contact with and (suspected) exposure to COVID-19
CPT/HCPCS: 36415; 71045; 80048; 80053; 80061; 80076; 81003; 82947; 83735; 83880; 84439; 84443; 84484; 85025; 85610; 90471; 93005; 93306; 96372; 96374; 96375; 99284; J0360; J1815; J2405; J2920; J3010; J3475; J3480; J7799; Q2035; U0003

== ENCOUNTER 2021-05-22 13:16 | Emergency (ER) | payer OTHER ==
--- OUTSIDE RECORDS SUMMARY | 2021-05-22 13:20 | XMS REPORT | Continuity of Care Document ---
:1965 Author Organization [facility] t Address [address] [place] [address] Care Team Providers Name Role Phone Irish Santana Primary Care Physician Zunilda REESE Attending Clinician ZUNILDA Attending Clinician Unavailable Kim CORDOVA Attending Clinician Unavailable THALIA TEE Attending Clinician [...] lumbar lumbar 00:00: [place] facet facet 00 [facility] joint joint Branch Osteoarthr Osteoarthr Disease Active U nivers itis of itis of 9-13 [place]y of right [place] [facility] Branch Osteoarthr Osteoarthr Disease Active U nivers itis of itis of 6-28 ity of both both 00:00: [place] shoulders shoulders 00 [facility] grant Branch Arthritis Arthritis Disease Active Uni vers of right of right 5-03 ity of knee knee 00:00: [place] 00 [facility] Branch Drug-induc Drug-induc Disease Active U xi ed ed 5-03 ity of constipati constipati [place] Medical [place] Headache Headache Disease Active Unive rs 5-03 ity of 00:00: [place] [facility] Spasm of Spasm of Disease Active Unive rs back back 4-01 ity of muscles muscles 00:00: [place] [facility] Cervical Cervical Disease Active Unive [...] it y of on on 00:00: [place] 00 Medical Branch Coronary Coronary Disease Active 2018-06 Unive rs artery artery 1-28 ity of disease disease 00:00: [place] involving involving 00 Medi grant [place] coronary coronary artery of artery of [place] heart heart without without angina angina pectoris [...] Quantity Comments Source Exposure to Not sure University of SARS-CoV-2 [place] Medical (event) Branch History [facility] University o f Alcohol Frequency [place] M edical Branch History [facility] o f Alcohol Std [place] Medical Drinks Branch History [facility] University o f Alcohol Binge [place] Medic al Branch Alcohol intake 2021-04-24 2021-04-24 Current drinker Unive rsity of 00:00:00 00:00:00 of alcohol [place] [facility] (finding) Branch Alcohol Comment 2020-10-02 2020-10-02 rare Universit y of 00:00:00 00:00:00 [place] [facility] History SDOH 2019-05-27 2019-05-27 3 University o f Financial 00:00:00 00:00:00 [place] [facility] History SDAR Food 2019-05-27 2019-05-27 1 Univers ity of Worry 00:00:00 00:00:00 [place] [facility] History SDOH Food 2019-05-27 2019-05-27 1 Univers ity of Scarcity 00:00:00 00:00:00 [place] [facility] History [facility] 2019-05-27 2019-05-27 2 University o f Transport Med 00:00:00 00:00:00 [place] Medic al Branch History [facility] 2019-05-27 2019-05-27 2 University o f Transport Non-Med 00:00:00 00:00:00 [facility] edical Branch Education 2019-05-26 2019-05-26 21 [facility] 00:00:00 00:00:00 [facility] Tobacco use and 2017-03-02 2017-03-02 Never used Universit y of exposure 00:00:00 00:00:00 [facility] Sex Ass[birth year] At [birth year] Universit y of 00:00:00 00:00:00 [facility] Smoking Status Start Date Stop Date Source Never smoker [facility] Medications Ordered Filled Start Stop Current Ordering Indication Dosage Frequency Signature Comments Components Source Medication Medication Date Date Medication? Clinician (SIG) Name Name cyclobenzap 2020-06 Yes 10mg Take 10 mg Univers rine 10 mg 0-26 by mouth ity o f tablet 13:08: daily. [address] rosuvastati 2020-06 Yes 20mg Take 20 mg Univers n 20 mg 0-26 by mouth ity of tablet 13:08: at [place] [id number] bedtime. [facility] INSULIN 2020-06- No inject Univers GLARGINE,HU 0-26 10-26 under the it y of M.REC.ANLOG 13:08: [place] (TOU[place] 14 :00 [facility] INSULIN 2020-06- No inject Univers GLARGINE,HU 0-26 10-26 under the it y of M.REC.ANLOG 13:08: [place] ([place] 08 :00 [facility] Insulin Yes Basaglar Univer s Glargine 4-05 [...] 00 :00 daily. Medical Branch traMADol Yes [id number] 50mg Take 1 Univers (ULTRAM) 50 7-19 [id number] tablet by i ty of mg tablet 00:00: mouth [place] 00 every 8 Medical (eight) Branch hours as needed for Pain (scale 4-6). Albuterol Albuterol Yes Na Santana [address] [facility] Sulfate Sulfate 7-10 needed [facility] albuterol 2020- No [id number] 2{puff} Inhale 2 Univers (PROAIR 03-02 10-26 [...] No 1{tbl} Take 1 U nivers acetaminoph 07-18 10- tablet by it y of en-caff 00:00: 00:00 mouth [place] 50-325-40 00 :00 every 4 Medical mg tablet (four) Branch hours as needed for Headache. ALPRAZolam 2020- No .25mg Take 0.25 Univers (XANAX) 1-11 10-26 mg by ity of 0.25 mg 00:00: 00:00 mouth 2 [place] tablet 00 :00 (two) Medical times Branch daily. Metformin Metformin Yes Na Santana TAKE 1 [...] [facility] Rosuvastati Rosuvastati Yes Na Santana 1 tablet [...] THREE l TIMES Outpati DAILY ent Clinics [place] Na Santana [address] [facility] ZyrTEC ZTE Yes Na Santana not [facility] defined [...] [facility] Yes Na Santana [address] [facility] KwikPen KwikPen daily [facility] Valium Valium Yes Na Santana [address] [facility] Aspirin Aspirin Yes Na Santana not [facility] defined [facility] Immunizations Ordered Filled Immunization Date Status Comments [facility] e Immunization Name Name SARS-COV-2 COVID-19 2021-01-31 Completed Unive rsity of PFIZER VACCINE 00:00:00 [facility] Afluria single dose Afluria single dose 2019-05-[address] [facility]00 [facility] Outpatient [facility] Vital Signs Vital Name Observation Time Observation Value Comments Source Systolic blood 2021-04-24 18:09:00 170 mm[Hg] Univer sity of pressure [facility] Diastolic blood 2021-04-24 18:09:00 89 mm[Hg] Unive rsity of pressure [facility] Heart rate 2021-04-24 18:08:00 98 /min [facility] Body temperature 2021-04-24 18:08:00 36.61 Juju [facility] Respiratory rate 2021-04-24 18:08:00 19 /min [facility] Body height 2021-04-24 18:08:00 172.7 cm [facility] Body weight 2021-04-24 18:08:00 98.793 kg [facility] BMI 2021-04-24 18:08:00 33.12 kg/m2 [facility] Oxygen saturation in 2021-04-24 18:08:00 100 /min [facility] Arterial blood by [facility] Pulse oximetry [place] Procedures This patient has no known procedures. Encounters Start End Encounter Admission Attending Care Care Encounter Source Date/Time Date/Time Type Type Clinicians Facility Department ID 2021-05-08 2021-05-08 ambulatory [facility]LMLC [facility] [id number] [facility]00 Shannon castillo Outpat[facility] ent Clinics 2021-04-24 2021-04-24 Office Puneet Mauro [facility] [id number] Univers 12:59:20 17:02:56 Visit Health [id number] it y of Clear [id number] [facility] danni [place] [id number] [address] Office Building 2021-04-24 2021-04-24 Outpatient PUNEET ORTEGA [facility] [id number] Univers 13:00:00 13:00:00 [id number] ity [facility] 2021-04-24 2021-04-24 Outpatient PUNEET ORTEGA [facility] [id number] Univers 13:00:00 13:00:00 ity of [facility] 2021-03-20 2021-03-20 Outpatient PUNEET ORTEGA [facility] [id number] Univers 13:45:00 13:45:00 [id number] ity [facility] 2021-03-20 2021-03-20 Outpatient PUNEET ORTEGA [facility] 409 [id number] Univers 13:45:00 13:45:00 ity [facility] 2021-03-06 2021-03-06 Outpatient R PUNEET MAURO [facility] [id number] Univers 13:00:00 13:00:00 [id number] ity [facility] 2021-03-06 2021-03-06 Outpatient R PUNEET MAURO [facility] [id number] Univers 13:00:00 13:00:00 ity [facility] 2021-02-20 2021-02-20 Outpatient R ZUNILDAPUNEET [facility] [id number] Univers 14:30:00 14:30:00 [id number] ity [facility] 2021-02-20 2021-02-20 Outpatient R ZUNILDAPUNEET [facility] [id number] Univers 14:30:00 14:30:00 ity [facility] 2021-02-16 2021-02-16 Outpatient R CORDOVA, [facility] [id number] Univers 09:00:00 09:00:00 LINDSAY [id number] ity [facility] 2021-02-16 2021-02-16 Outpatient R ART [facility] [id number] Univers 09:00:00 09:00:00 [facility] 2021-01-31 2021-01-31 Outpatient Rafael MAUROPUNEET [facility] [id number] Univers 09:00:00 09:00:00 [id number] ity [facility] 2021-01-31 2021-01-31 Outpatient Rafael MAURO PUNEET [facility] [id number] Univers 00:00:00 00:00:00 ity [facility] 2021-01-23 2021-01-23 Outpatient R ZUNILDAPUNEET [facility] [id number] Univers 14:00:00 14:00:00 [id number] ity [facility] 2021-01-23 2021-01-23 Outpatient Rafael MAURO PUNEET [facility] [id number] Univers 14:00:00 14:00:00 ity [facility] 2021-01-12 2021-01-12 Outpatient LORENA PEREIRA [facility] [id number] Univers 14:20:00 14:20:00 LORENA TEE [facility] 2021-01-12 2021-01-12 Outpatient R LORENA TEE [facility] [id number] Univers 14:20:00 14:20:00 LORENA TEE [id number] [facility] 2021-01-03 2021-01-03 Outpatient STLMLC [facility]LMLC [id number] [facility] 2021-01-02 2021-01-02 Outpatient R PUNEET MAURO [facility] [id number] Univers 11:00:00 11:00:00 [id number] [facility] 2021-01-02 2021-01-02 Outpatient R PUENET MAURO [facility] [id number] Univers 11:00:00 11:00:00 [facility] 2020-12-21 2020-12-21 Outpatient R RADIOLOGY [facility] [id number] Univers 16:30:00 16:30:00 [id number] [facility] 2020-12-21 2020-12-21 Outpatient R RADIOLOGY [facility] [id number] Univers 00:00:00 00:00:00 [facility] 2020-12-14 2020-12-14 Outpatient STLMLC [facility]MLC [id number] [facility] 2020-12-13 2020-12-13 Outpatient STLMLC STLMLC [id number] [facility] 2020-12-12 2020-12-12 Outpatient R PUNEET MAURO [facility] 164 [id number] Univers 11:00:00 11:00:00 [id number] [facility] 2020-12-12 2020-12-12 Outpatient R PUNEET MAURO [facility] [id number] Univers 11:00:00 11:00:00 [facility] 2020-11-22 2020-11-22 Outpatient STLMLC STLMLC [id number] [facility] 2020-11-14 2020-11-14 Outpatient PUNEET ORTEGA [facility] 164 [id number] Univers 09:30:00 09:30:00 [id number] [facility] 2020-11-14 2020-11-14 Outpatient PUNEET ORTEGA [facility] [id number] Univers 09:30:00 09:30:00 [facility] 2020-10-30 2020-10-30 Outpatient Rafael CALIXTO [facility] [id number] Univers 09:30:00 09:30:00 NATHAN [id number] [facility] 2020-10-30 2020-10-30 Outpatient Rafael CALIXTO [facility] [id number] Univers 09:30:00 09:30:00 NATHAN [facility] 2020-10-02 2020-10-02 Outpatient Rafael CALIXTO [facility] [id number] Univers 09:30:00 09:30:00 NATHAN [id number] [facility] 2020-10-02 2020-10-02 Outpatient R MARILY [facility] [id number] Univers 09:30:00 09:30:00 NATHAN [facility] 2020-09-14 2020-09-14 Outpatient Rafael CALIXTO [facility] [id number] Univers 14:45:00 14:45:00 NATHAN [id number] [facility] 2020-09-14 2020-09-14 Outpatient Rafael CALIXTO [facility] [id number] Univers 14:45:00 14:45:00 NATHAN [facility] 2020-07-12 2020-07-12 Outpatient STLMLC STLMLC [id number] [facility] 2020-06-26 2020-06-26 Outpatient STLMLC STLMLC [id number] [facility] 2020-06-09 2020-06-09 Outpatient STLMLC STLMLC [id number] [facility] 2020-06-02 2020-06-02 Outpatient [facility]LMLC STLC [id number] [facility]00 [facility] l Outpati ent Clinics 2020-02-25 2020-02-25 [facility] [id number] [facility] 16:20:00 16:20:00 t [employer] [facility] Medicine l Medicine Outpati ent Clinics 2020-02-18 2020-02-18 [facility] [id number] 09:04:00 09:04:00 t [employer] [facility] Medicine l Medicine Outpati ent Clinics 2020-01-26 2020-01-26 [facility] [id number] 11:20:00 11:20:00 t [employer] [facility] l Medicine Outpati ent Clinics 2019-11-15 2019-11-15 [facility] [id number] 13:40:00 13:40:00 t [employer] [facility] Medicine Outpati ent Clinics 2019-11-08 2019-11-08 [facility] [id number] 09:46:00 09:46:00 t [employer] [facility] Medicine Outpati ent Clinics 2019-10-26 2019-10-26 [facility] [id number] 16:29:00 16:29:00 t [employer] [facility] Medicine l Medicine Outpati ent Clinics 2019-10-13 2019-10-13 [facility] [id number] 10:00:00 10:00:00 t [employer] [facility] Medicine Outpati ent Clinics 2019-07-26 2019-07-26 [facility] [id number] 10:32:00 10:32:00 t [employer] [facility] l Medicine Outpati ent Clinics 2019-07-26 2019-07-26 [facility] [id number] [facility] 09:41:00 09:41:00 t [employer] [facility] Medicine l Medicine Outpati ent Clinics 2019-06-10 2019-06-10 [facility] [id number] 16:53:00 16:53:00 [place] [employer] Luke s - Drive [facility] Medicine l Medicine Outpati ent Clinics 2019-05-03 2019-05-03 [facility] [id number] 14:00:00 14:00:00 [place] [employer] s - Drive [facility] l Medicine Outpati ent Clinics 2019-04-08 2019-04-08 [facility] [id number] 16:06:00 16:06:00 [place] [employer] s - Drive [facility] l Medicine Outpati ent Clinics 2019-02-24 2019-02-24 [facility] [id number] 11:34:00 11:34:00 [place] [employer] s - Drive [facility] Medicine Medicine Outpati ent Clinics 2019-01-16 2019-01-16 [facility] [id number] 13:30:00 13:30:00 [facility] l Outpati ent Clinics 2019-01-11 2019-01-11 [facility] [id number] 11:00:00 11:00:00 [facility] Outpati ent Clinics 2018-09-04 2018-09-04 [facility] [id number] 11:00:00 11:00:00 [place] [employer] s - Drive [facility] Medicine l Medicine Outpati ent Clinics 2018-02-02 2018-02-02 [facility] [id number] 11:15:00 11:15:00 [place] [employer] s - Drive [facility] Medicine l Medicine Outpati ent Clinics 2018-01-19 2018-01-19 [facility] [id number] 10:36:00 10:36:00 [place] [employer] s - Drive [facility] Medicine Medicine Outpati ent Clinics 2018-01-06 2018-01-06 [facility] [id number] 11:15:00 11:15:00 [place] [employer] Contact At Once! Drive [facility] Outpati ent Clinics 2018-01-05 2018-01-05 [facility] [id number] 11:13:00 11:13:00 t [employer] [facility] Outpati ent Clinics 2018-01-01 2018-01-01 [facility] [id number] 13:00:00 13:00:00 t Urgent Urgent [facility] L [facility] Outpati ent Clinics 2017-12-19 2017-12-19 [facility] [id number] 10:30:00 10:30:00 t [employer] [facility] Outpati ent Clinics 2017-09-18 2017-09-18 [facility] [id number] 09:00:00 09:00:00 [facility] [employer] [facility] Outpati ent Clinics Results This patient has no known results.
[2021-05-22 13:45] LABS: Absolute Lymphocytes (CBC) 1.8 K/uL (0.7-4.9); Basophils % 0.5 % (0-1.3); Hematocrit 38.8 % (36.0-45.0); Lymphocytes % 10.4 % (15.3-44.8); MPV 9.9 fL (7.6-11.3); RBC Red Blood Cell Count 4.68 M/uL (3.86-4.86)
[2021-05-22 13:48] LABS: Protime INR 0.97
[2021-05-22] MEDS ORDERED: ASPIRIN 81 MG CHEWABLE TABLET ONE (14:06)
[2021-05-22] MEDS ORDERED: MORPHINE 4 MG/ML SYR ONE ×2 (14:07→16:10)
[2021-05-22] MEDS ORDERED: ONDANSETRON 4 MG/2 ML VIAL ONE (14:07)
[2021-05-22 14:23] LABS: Albumin 3.4 g/dL (3.4-5.0); Bilirubin Direct 0.1 mg/dL (0-0.2); Bilirubin Total 0.5 mg/dL (0.2-1.0); Magnesium 1.6 mg/dL (1.8-2.4); Protein, Total 7.6 g/dL (6.4-8.2); Troponin (Emerg Dept Use Only) 0.35 ng/mL (0.0-0.045)
--- NOTE | 2021-05-22 14:25 | RAD REPORT ---
EXAM DESCRIPTION: RAD - Chest Single View - 05/22/2021 2:04 pm CLINICAL HISTORY: CHEST PAIN COMPARISON: May 14 TECHNIQUE: AP portable chest image was obtained 05/22/2021 2:04 pm . FINDINGS: Lungs are clear. Heart and vasculature are normal. No measurable pleural effusion and no p neumothorax. No acute bony abnormality seen. No acute aortic findings suspected. No free air in the diaphragm. Left hemidiaphragm is elevated. There is prominent stomach and/or large bowel gas distention elevating the left hemidiaphragm. This matches prior study. IMPRESSION: No acute cardiopulmonary process. No significant change from comparison study.
[2021-05-22] MEDS ORDERED: NITROGLYCERIN 0.4 MG/TAB SL ONE (14:55)
[2021-05-22] MEDS ORDERED: ENOXAPARIN 100 MG/ML SYR SQ ONE (14:56)
[2021-05-22] MEDS ORDERED: INSULIN -REGULAR HUMAN 50 UNIT/0.5 ML ML ONE (14:57)
[2021-05-22] MEDS ORDERED: METOPROLOL TARTRATE 5 MG/5 ML INJ IV ONE (14:58)
[2021-05-22] MEDS ORDERED: NA CHLORIDE 0.9% 500 ML ONE (14:58)
[2021-05-22] MEDS ORDERED: MAGNESIUM SULFATE 1 gm IVPB 1 GM/100 ML BAG IV ONE (16:11)
--- NOTE | 2021-05-22 17:42 | ER ---
Nurse's Notes [facility] Name: Luz Nick Age: 55 yrs Sex: Female : 1965 Arrival Date: 05/22/2021 Time: 13:17 Bed 6 Private MD: Diagnosis: Chest pain, unspecified Presentation: 05/22 13:20 Chief complaint: Patient states: midsternal chest pain since yesterday , was just d/c iw from hospital after having a heart attack , did not have stent placed but has had on in past , sees Dr. Maradiaga. Coronavirus screen: At this time, the client does not indicate any symptoms associated with coronavirus-19. Ebola Screen: Patient negative for fever greater than or equal to 101.5 degrees Fahrenheit, and additional compatible Ebola Virus Disease symptoms Patient denies exposure to infectious person. Patient denies travel to an Ebola-affected area in the 21 days before illness onset. No symptoms or risks identified at this time. Initial Sepsis Screen: Does the patient meet any 2 criteria? No. Patient's initial sepsis screen is negative. Does the patient have a suspected source of infection? No. Patient's initial sepsis screen is negative. Risk Assessment: Do you want to hurt yourself or someone else? Patient reports no desire to harm self or others. Onset of symptoms was May 21, 2021. 13:20 Method Of Arrival: Ambulatory iw 13:20 Acuity: GORDY 2 iw Historical: - Allergies: 13:22 PENICILLINS; iw - PMHx: 13:22 Diabetes - NIDDM; Hypertension; Migraines; Myocardial infarction; iw - PSHx: 13:22 cardiac stent; Cholecystectomy; section; iw - Immunization history:: Client reports receiving the 2nd dose of the Covid vaccine. - Social history:: Smoking status: Patient denies any tobacco usage or history of. Screenin:44 Abuse screen: Denies threats or abuse. Nutritional screening: No deficits noted. jd3 Tuberculosis screening: No symptoms or risk factors identified. Fall Risk IV access (20 points). Ambulatory Aid- None/Bed Rest/Nurse Assist (0 pts). Gait- Normal/Bed Rest/Wheelchair (0 pts) Mental Status- Oriented to own ability (0 pts). Total Humphreys Fall Scale indicates No Risk (0-24 pts). Assessment: 13:30 General: Appears uncomfortable, Behavior is cooperative, appropriate for age, anxious, jd3 crying. Pain: Complains of pain in chest Pain does not radiate. Pain began 1 day ago. Neuro: Level of Consciousness is awake, alert, obeys commands, Oriented to person, place, time, situation. Cardiovascular: Reports chest pain, Capillary refill < 3 seconds Patient's skin is warm and dry. Rhythm is regular. Respiratory: Reports shortness of breath at rest Airway is patent Respiratory effort is even, unlabored, Respiratory pattern is regular, symmetrical, Denies cough. GI: No signs and/or symptoms were reported involving the gastrointestinal system. : No signs and/or symptoms were reported regarding the genitourinary system. EENT: No signs and/or symptoms were reported regarding the EENT system. Derm: Skin is intact, Skin is dry, Skin is normal, Skin temperature is warm. Musculoskeletal: Circulation, motion, and sensation intact. Range of motion:. 14:30 Reassessment: Patient appears in no apparent distress at this time. No changes from jd3 previously documented assessment. Patient and/or family updated on plan of care and expected duration. Pain level reassessed. Patient is alert, oriented x 3, equal unlabored respirations, skin warm/dry/pink. 16:28 Reassessment: Patient appears in no apparent distress at this time. No changes from jd3 previously documented assessment. Patient and/or family updated on plan of care and expected duration. Pain level reassessed. Patient is alert, oriented x 3, equal unlabored respirations, skin warm/dry/pink. 17:30 Reassessment: Patient and/or family updated on plan of care and expected duration. Pain jd3 level reassessed. Patient is alert, oriented x 3, equal unlabored respirations, skin warm/dry/pink. Patient states feeling better. 18:36 Reassessment: Patient appears in no apparent distress at this time. Patient and/or jd3 family updated on plan of care and expected duration. Pain level reassessed. Patient is alert, oriented x 3, equal unlabored respirations, skin warm/dry/pink. even and steady gait upon discharge. reported understanding of discharge instructions. Patient states feeling better. Vital Signs: 13:20 BP 165 / 106; Pulse 100; Resp 18 S; Pulse Ox 100% on R/A; Weight 95.25 kg; Height 5 ft. iw 8 in. (172.72 cm); Pain 10/10; 14:42 BP 133 / 81; Pulse 90; Resp 15 S; Pulse Ox 100% on R/A; jd3 16:27 BP 150 / 94; Pulse 87; Resp 19 S; Pulse Ox 100% on R/A; jd3 17:30 BP 135 / 92; Pulse 90; Resp 16 S; Pulse Ox 99% on R/A; jd3 18:39 BP 133 / 83; Pulse 85; Resp 17 S; Pulse Ox 99% on R/A; jd3 13:20 Body Mass Index 31.93 (95.25 kg, 172.72 cm) iw ED Course: 13:17 Patient arrived in ED. rg4 13:22 Triage completed. iw 13:23 Arm band placed on. iw 13:25 Jace Gr NP is PHCP. pm1 13:25 Judson Choi MD is Attending Physician. pm1 13:26 Albino Simon RN is Primary Nurse. jd3 14:04 XRAY Chest (1 view) In Process Unspecified. EDMS 14:30 Inserted saline lock: 22 gauge in left antecubital area, using aseptic technique. jd3 placed by La DICKENS. Patient maintains SpO2 saturation greater than 95% on room air. 14:43 Patient has correct armband on for positive identification. Bed in low position. Call jd3 light in reach. Side rails up X 1. Adult w/ patient. nuclear monitoring technician on. Pulse ox on. NIBP on. 17:41 Driss Maradiaga MD is Referral Physician. pm1 18:37 No provider procedures requiring assistance completed. IV discontinued, intact, jd3 bleeding controlled, No redness/swelling at site. Pressure dressing applied. Administered Medications: 14:22 Drug: Aspirin Chewable Tablet 324 mg {Note: 243 mg given with 3 81 mg aspirin provider jd3 notified because pt took daily aspirin today already..} Route: PO; 18:43 Follow up: Response: No adverse reaction jd3 14:36 Drug: morphine 4 mg Route: IVP; Site: left antecubital; jd3 15:30 Follow up: Response: No adverse reaction; RASS: Alert and Calm (0) jd3 14:36 Drug: Zofran (Ondansetron) 4 mg Route: IVP; Site: left antecubital; jd3 15:30 Follow up: Response: No adverse reaction jd3 15:19 Drug: Nitroglycerin 0.4 mg Route: Sublingual; jd3 15:24 Drug: Insulin Regular Human 10 units {Co-Signature: sm5 (Danielle Bill RN).} Route: IVP; jd3 Site: left antecubital; 16:20 Follow up: Response: No adverse reaction jd3 15:24 Drug: NS 0.9% 500 ml Route: IV; Rate: bolus; Site: left antecubital; jd3 16:20 Follow up: Response: No adverse reaction; IV Status: Completed infusion jd3 15:24 Drug: Nitroglycerin 0.4 mg Route: Sublingual; jd3 15:29 Drug: Nitroglycerin 0.4 mg Route: Sublingual; jd3 16:25 Follow up: Response: No adverse reaction jd3 15:32 Drug: Lovenox (enoxaparin) 1 mg/kg Route: Sub-Q; Site: abdomen; jd3 16:30 Follow up: Response: No adverse reaction jd3 16:27 Drug: Lopressor (metoprolol) 5 mg Route: IVP; Site: left antecubital; jd3 17:25 Follow up: Response: No adverse reaction jd3 16:27 Drug: Magnesium Sulfate 1 grams Route: IVPB; Infused Over: 1 hrs; Site: left [facility] antecubital; 17:20 Follow up: Response: No adverse reaction; IV Status: Completed infusion jd3 16:27 Drug: morphine 4 mg Route: IVP; Site: left antecubital; jd3 17:20 Follow up: Response: No adverse reaction; RASS: Alert and Calm (0) jd3 18:17 Drug: Ketorolac 15 mg Route: IVP; Site: left antecubital; sm5 18:41 Follow up: Response: No adverse reaction jd3 18:17 Drug: predniSONE 40 mg Route: PO; sm5 18:41 Follow up: Response: No adverse reaction jd3 Outcome: 17:41 Discharge ordered by . pm1 18:39 Discharged to home ambulatory, with family. jd3 18:39 Condition: stable 18:39 Discharge instructions given to patient, family, Instructed on discharge instructions, follow up and referral plans. medication usage, Demonstrated understanding of instructions, follow-up care, medications, Prescriptions given X 3. 18:44 Patient left the ED. jd3 Signatures: Dispatcher [employer] La Blanchard RN RN iw Marinas, Patrick, NP HOG OPERATOR pm1 Kathy Godoy rg4 Albino Simon RN RN jd3 Mazur, Sarah, RN RN sm5 Danielle Bill RN sm5 Corrections: (The following items were deleted from the chart) 16:28 14:30 Reassessment: Patient appears in no apparent distress at this time. Patient jd3 and/or family updated on plan of care and expected duration. Pain level reassessed. Patient is alert, oriented x 3, equal unlabored respirations, skin warm/dry/pink. Patient states feeling better. jd3
--- NOTE | 2021-05-22 17:43 | EDPHYS ---
Physician Documentation [facility] Name: Luz Nick Age: 55 yrs Sex: Female : 1965 Arrival Date: 05/22/2021 Time: 13:17 Bed 6 Private MD: ED Physician Judson Choi HPI: 05/22 13:29 This 55 yrs old Female presents to ER via Ambulatory with complaints of Chest pm1 Pain. 13:29 The patient or guardian reports chest pain that is located primarily in the mid-sternal pm1 area. Onset: yesterday. The pain does not radiate. Associated signs and symptoms: The patient has no apparent associated signs or symptoms, Pertinent negatives: dizziness, headache, shortness of breath. The chest pain is described as burning. Duration: The patient or guardian reports a single episode, that is still ongoing. Severity of pain: in the emergency department the pain is a 8 / 10. The patient has experienced a previous episode, Patient admitted to the hospital on 05/14 with a diagnosis of NSTEMI. Patient was discharged home on 1118 with Colcrys and steroids. Patient reports she was chest pain-free until last night. Patient still has Colcrys 3 tablets but has completed her steroid treatment. Historical: - Allergies: 13:22 PENICILLINS; iw - PMHx: 13:22 Diabetes - NIDDM; Hypertension; Migraines; Myocardial infarction; iw - PSHx: 13:22 cardiac stent; Cholecystectomy; section; iw - Immunization history:: Client reports receiving the 2nd dose of the Covid vaccine. - Social history:: Smoking status: Patient denies any tobacco usage or history of. ROS: 13:29 Constitutional: Negative for fever, chills, and weight loss. pm1 13:29 Respiratory: Negative for shortness of breath, cough, wheezing, and pleuritic chest pain, Abdomen/GI: Negative for abdominal pain, nausea, vomiting, diarrhea, and constipation, Back: Negative for injury and pain, MS/Extremity: Negative for injury and deformity, Skin: Negative for injury, rash, and discoloration, Neuro: Negative for headache, weakness, numbness, tingling, and seizure. 13:29 Cardiovascular: Positive for chest pain, Negative for edema, palpitations. 13:29 All other systems are negative. Exam: 13:29 Constitutional: This is a well developed, well nourished patient who is awake, alert, pm1 and in no acute distress. Head/Face: Normocephalic, atraumatic. Chest/axilla: Normal chest wall appearance and motion. Nontender with no deformity. No lesions are appreciated. 13:29 Back: No spinal tenderness. No costovertebral tenderness. Full range of motion. Skin: Warm, dry with normal turgor. Normal color with no rashes, no lesions, and no evidence of cellulitis. MS/ Extremity: Pulses equal, no cyanosis. Neurovascular intact. Full, normal range of motion. 13:29 Eyes: Exam is negative for acute changes, Extraocular movements: no acute changes. 13:29 ENT: Exam is negative for acute changes, Mouth: no acute changes, Lips: normal, moist, Oral mucosa: normal, pink and intact, moist. 13:29 Cardiovascular: Exam negative for Rate: normal, Rhythm: regular, Pulses: no pulse deficits are appreciated. 13:29 Respiratory: Exam negative for acute changes, respiratory distress, shortness of breath, Breath sounds: are clear throughout. 13:29 Abdomen/GI: Exam negative for acute changes, Inspection: abdomen appears normal, Palpation: abdomen is soft and non-tender, in all quadrants. 13:29 Neuro: Exam negative for acute changes, Orientation: is normal, Mentation: is normal, Motor: is normal, moves all fours. Vital Signs: 13:20 BP 165 / 106; Pulse 100; Resp 18 S; Pulse Ox 100% on R/A; Weight 95.25 kg; Height 5 ft. iw 8 in. (172.72 cm); Pain 10/10; 14:42 BP 133 / 81; Pulse 90; Resp 15 S; Pulse Ox 100% on R/A; jd3 16:27 BP 150 / 94; Pulse 87; Resp 19 S; Pulse Ox 100% on R/A; jd3 17:30 BP 135 / 92; Pulse 90; Resp 16 S; Pulse Ox 99% on R/A; jd3 18:39 BP 133 / 83; Pulse 85; Resp 17 S; Pulse Ox 99% on R/A; jd3 13:20 Body Mass Index 31.93 (95.25 kg, 172.72 cm) iw MDM: 13:26 Patient medically screened. pm1 13:53 ED course: Patient recently completed steroid regimen, likely cause for elevated white pm1 count. 16:39 Physician consultation: Marvin Weinstein DO regarding admission, patient's condition, pm1 Would likely discuss patient case with Dr. Maradiaga prior to admitting to determine what he would like to be done for the patient. 17:05 Physician consultation: Driss Maradiaga MD regarding consult, patient's condition, and pm1 will see patient in office, Discharge the patient home with indomethicin and colcrys and steroids. Follow up in the office on Friday. 17:37 Data reviewed: vital signs. Data interpreted: Pulse oximetry: on room air is 100 %. pm1 Interpretation: normal. 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 17:39 ED course: Patient's pain 0/10. pm1 05/22 13:27 Order name: Basic Metabolic Panel; Complete Time: 14:37 pm1 05/22 13:27 Order name: CBC with Diff; Complete Time: 13:53 pm1 05/22 13:27 Order name: LFT's; Complete Time: 14:37 pm1 05/22 13:27 Order name: Magnesium; Complete Time: 14:37 pm1 05/22 13:27 Order name: NT PRO-BNP; Complete Time: 14:37 pm1 05/22 13:27 Order name: PT-INR; Complete Time: 13:53 pm1 05/22 13:27 Order name: Troponin (emerg Dept Use Only); Complete Time: 14:37 pm1 05/22 13:27 Order name: XRAY Chest (1 view); Complete Time: 14:26 pm1 05/22 15:00 Order name: SARS-COV-2 RT PCR (Document "Date of Onset" if Symptomatic); Complete Time: iw 16:59 05/22 17:20 Order name: Glucose, Ancillary Testing; Complete Time: 17:33 EDMS 05/22 13:27 Order name: EKG; Complete Time: 13:28 pm1 05/22 13:27 Order name: Cardiac monitoring; Complete Time: 13:30 pm1 05/22 13:27 Order name: EKG - Nurse/Tech; Complete Time: 13:30 pm1 05/22 13:27 Order name: IV Saline Lock; Complete Time: 13:30 pm1 05/22 13:27 Order name: Labs collected and sent; Complete Time: 13:30 pm1 05/22 13:27 Order name: O2 Per Protocol; Complete Time: 13:30 pm1 05/22 13:27 Order name: O2 Sat Monitoring; Complete Time: 13:30 pm1 Administered Medications: 14:22 Drug: Aspirin Chewable Tablet 324 mg {Note: 243 mg given with 3 81 mg aspirin provider jd3 notified because pt took daily aspirin today already..} Route: PO; 18:43 Follow up: Response: No adverse reaction jd3 14:36 Drug: morphine 4 mg Route: IVP; Site: left antecubital; jd3 15:30 Follow up: Response: No adverse reaction; RASS: Alert and Calm (0) jd3 14:36 Drug: Zofran (Ondansetron) 4 mg Route: IVP; Site: left antecubital; jd3 15:30 Follow up: Response: No adverse reaction jd3 15:19 Drug: Nitroglycerin 0.4 mg Route: Sublingual; jd3 15:24 Drug: Insulin Regular Human 10 units {Co-Signature: sm5 (Danielle Bill RN).} Route: IVP; jd3 Site: left antecubital; 16:20 Follow up: Response: No adverse reaction jd3 15:24 Drug: NS 0.9% 500 ml Route: IV; Rate: bolus; Site: left antecubital; jd3 16:20 Follow up: Response: No adverse reaction; IV Status: Completed infusion jd3 15:24 Drug: Nitroglycerin 0.4 mg Route: Sublingual; jd3 15:29 Drug: Nitroglycerin 0.4 mg Route: Sublingual; jd3 16:25 Follow up: Response: No adverse reaction jd3 15:32 Drug: Lovenox (enoxaparin) 1 mg/kg Route: Sub-Q; Site: abdomen; jd3 16:30 Follow up: Response: No adverse reaction jd3 16:27 Drug: Lopressor (metoprolol) 5 mg Route: IVP; Site: left antecubital; jd3 17:25 Follow up: Response: No adverse reaction jd3 16:27 Drug: Magnesium Sulfate 1 grams Route: IVPB; Infused Over: 1 hrs; Site: left jd3 antecubital; 17:20 Follow up: Response: No adverse reaction; IV Status: Completed infusion jd3 16:27 Drug: morphine 4 mg Route: IVP; Site: left antecubital; jd3 17:20 Follow up: Response: No adverse reaction; RASS: Alert and Calm (0) jd3 18:17 Drug: Ketorolac 15 mg Route: IVP; Site: left antecubital; sm5 18:41 Follow up: Response: No adverse reaction jd3 18:17 Drug: predniSONE 40 mg Route: PO; sm5 18:41 Follow up: Response: No adverse reaction jd3 Disposition: 05/23 08:15 Co-signature as Attending Physician, Judson Choi MD I agree with the assessment and kdr plan of care. Disposition Summary: 05/22/21 17:41 Discharge Ordered Location: Home pm1 Problem: new pm1 Symptoms: have improved pm1 Condition: Stable pm1 Diagnosis - Chest pain, unspecified pm1 Followup: pm1 - With: Emergency Department - When: As needed - Reason: Worsening of condition Followup: pm1 - With: Driss Maradiaga MD - When: 05/28/2021 - Reason: Recheck today's complaints, Continuance of care, Re-evaluation by your physician Discharge Instructions: - Discharge Summary Sheet pm1 - Nonspecific Chest Pain, Adult pm1 Forms: - Medication Reconciliation Form pm1 - Thank You Letter pm1 - Antibiotic Education pm1 - Prescription Opioid Use pm1 Prescriptions: - Colcrys 0.6 mg Oral tablet - take 1 tablet by ORAL route every 12 hours; 12 tablet; Refills: 0, Product pm1 Selection Permitted - indomethacin 75 mg Oral capsule, extended release - take 1 capsule by ORAL route 2 times per day As needed with food; 20 capsule; pm1 Refills: 0, Product Selection Permitted - Medrol (Alcon) 4 mg Oral Tablets, Dose Pack - take 1 tablet by ORAL route as directed - follow package instructions; 1 pm1 packet; Refills: 0, Product Selection Permitted Signatures: Dispatcher [employer] Judson Nguyen MD MD kdr Williams, Irene, RN RN iw Jace Gr, HYDRAULIC JACK ADJUSTER HYDRAULIC JACK ADJUSTER pm1 Albino Simon, RN RN jd3 Danielle Bill RN RN sm5 Danielle Bill RN sm5
[2021-05-22] MEDS ORDERED: predniSONE 20 MG TAB ONE (18:06)
[2021-05-22] MEDS ORDERED: KETOROLAC 30 MG/ML INJ ONE (18:06)
[2021-05-22 18:54] VITALS: O2SAT 99
[2021-05-22 18:56] VITALS: BP 133/83
--- NOTE | 2021-05-23 08:04 | EKG ---
Test Date: 2021-05-22 Test Time: 13:28:14 Auto Body Detailer: EDITA MEASUREMENT RESULTS: Intervals: Rate: 89 NH: 152 QRSD: 66 QT: 356 QTc: 433 [place]: P: 36 NH: 152 QRS: -15 T: 85 INTERPRETIVE STATEMENTS: Normal sinus rhythm Possible Left atrial enlargement Nonspecific ST and T wave abnormality Abnormal ECG Compared to ECG 05/14/2021 00:55:47 No significant changes Electronically Signed On 05-23-21 08:03:13 MEDICAL ASSOCIATE by Driss Maradiaga
== END 2021-05-22 18:44 | disposition home or self-care (01) ==
LOC: ER 13:16
DX: R07.9 Chest pain, unspecified (principal); I10 Essential (primary) hypertension; E11.9 Type 2 diabetes mellitus without complications; Z95.818 Presence of other cardiac implants and grafts; Z88.0 Allergy status to penicillin
CPT/HCPCS: 36415; 71045; 80048; 80076; 82947; 83735; 83880; 84484; 85025; 85610; 93005; 96361; 96365; 96372; 96375; 99285; J1650; J2405; J3475; J7040; J7512; U0003

== ENCOUNTER 2021-05-25 14:37 | Inpatient (IN) | payer OTHER ==
[2021-05-25] MEDS: METFORMIN HCL 500 MG TAB PO SCH ×2 (08:00→17:00)
--- OUTSIDE RECORDS SUMMARY | 2021-05-25 14:48 | XMS REPORT | Continuity of Care Document ---
:1965 Author Organization [facility] t Address [address] [place] [address] Care Team Providers Name Role Phone Irish [...] of 9-13 ity of lumbar lumbar 00:00: [place] facet facet 00 [facility] joint joint Branch Osteoarthr Osteoarthr Disease Active U nivers itis of itis of 9-13 ity of right [place] [facility] Branch Osteoarthr Osteoarthr Disease Active U nivers itis of itis of 6-28 ity of both both 00:00: [place] shoulders shoulders 00 [facility] grant Branch Arthritis Arthritis Disease Active Uni vers of right of right 5-03 ity of knee knee 00:00: [place] [address] [facility] Branch Drug-induc Drug-induc Disease Active U xi ed ed 5-03 ity of constipati constipati [place] Headache Headache Disease Active Unive rs 5-03 ity of 00:00: [place] [facility] Spasm of Spasm of Disease Active Unive rs back back 4-01 ity of muscles muscles 00:00: [place] [facility] Cervical Cervical Disease Active Unive rs radiculopa radiculopa 2-08 it y of thy thy 00:00: [place] [facility] Lumbar Lumbar Disease Active Univers radiculopa radiculopa 2-08 it y of thy thy 00:00: [place] [facility] Hypertensi Hypertensi Disease Active 2018-06 U xi ve urgency ve urgency 1-28 it y of 00:00: [place] [facility] IDDM IDDM Disease Active 2018-06 [...] 00:00: [place] involving involving 00 Medi grant [place] 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 without angina angina pectoris pectoris Chest pain Chest pain Disease Active 2018-06 U nivers 1-27 ity of 00:00: [place] [facility] Knee pain Knee pain Disease Active 2018-06 Uni vers 0-07 ity of 00:00: [place] [facility] Restless Restless Disease Active Unive rs legs legs 4-26 ity of 00:00: [place] 00 Medical Branch Anxiety Anxiety Disease Active 2019- Univers 2-01 ity of 00:00: [place] 00 Medical [facility] Insomnia Insomnia Disease Active Unive rs 2-01 ity of 00:00: [place] 00 Medical [facility] Spinal Spinal Disease Active [...] Exposure to Not sure University of SARS-CoV-2 [place] [facility] (event) Branch History [facility] University o f Alcohol Frequency [place] M edical [facility] History [facility] o f Alcohol Std [place] [facility] Drinks Branch History [facility] University o f Alcohol Binge [place] [facility] Alcohol intake 2021-04-24 2021-04-24 Current drinker Unive rsity of 00:00:00 00:00:00 of alcohol [place] [facility] (finding) Branch Alcohol Comment 2020-10-02 2020-10-02 rare Universit y of 00:00:00 00:00:00 [place] [facility] History SDOH 2019-05-27 2019-05-27 3 University o f Financial 00:00:00 00:00:00 [place] [facility] History SDFL Food 2019-05-27 2019-05-27 1 Univers ity of Worry 00:00:00 00:00:00 [place] [facility] History SDOH Food 2019-05-27 2019-05-27 1 Univers ity of Scarcity 00:00:00 00:00:00 [place] [facility] History [facility] 2019-05-27 2019-05-27 2 University o f Transport Med 00:00:00 00:00:00 [place] [facility] al Branch History [facility] 2019-05-27 2019-05-27 2 University o f Transport Non-Med 00:00:00 00:00:00 [facility] edical Branch Education 2019-05-26 2019-05-26 21 [facility] 00:00:00 00:00:00 [facility] Tobacco use and 2017-03-02 2017-03-02 Never used Universit y of exposure 00:00:00 00:00:00 [facility] Sex [birth year] Universit y of 00:00:00 00:00:00 [facility] Smoking Status Start Date Stop Date Source Never smoker [facility] Medications Ordered Filled Start Stop Current Ordering Indication Dosage Frequency Signature Comments Components Source Medication Medication Date Date Medication? Clinician (SIG) Name Name cyclobenzap 2020-06 Yes 10mg Take 10 mg Univers rine 10 mg 0-26 by mouth ity o f tablet 13:08: daily. [address] rosuvastati 2020-06 Yes 20mg Take 20 mg Univers n 20 mg 0-26 by mouth ity of tablet 13:08: at [place] [address] [address] [facility] INSULIN 2020-06- No inject Univers GLARGINE,HU 0-26 10-26 under the it y of M.REC.ANLOG 13:08: [place] (TOUJEO 14 :00 [facility] INSULIN 2020-06- No inject Univers GLARGINE,HU 0-26 10-26 under the it y of M.REC.ANLOG 13:08: [place] ([place]) 08 :[address] [facility] Insulin Yes Basaglar Univer s Glargine [...] under the ity of (NOVOLOG 10:16: skin. [place] PENFILL [place]) 23 Medical Branch aspirin 81 [...] 00 :00 daily. Medical Branch traMADol Yes [id number] 50mg Take 1 Univers (ULTRAM) 50 [id number] tablet by i ty of mg tablet 00:00: mouth [place] 00 every 8 Medical (eight) Branch hours as needed for Pain (scale 4-6). Albuterol Albuterol Yes Na Santana [address] [facility] Sulfate Sulfate 7-10 needed [facility] 00 [facility] albuterol 2020- No [id number] 2{puff} Inhale 2 Univers (PROAIR 03-02 10-26 [...] 00 :00 (two) Medical times Branch daily. ZyrTEC ZyrTEC Yes Na Santana not [facility] defined [facility] Clonidine Clonidine Yes Na Santana [address] HCl HCl [facility] Carvedilol Carvedilol Yes Na Santana as [facility] directed [facility] Abilify Abilify Yes Na Santana [address] [facility] Basaglar Basaglar Yes Na Santana [address] KwikPen KwikPen daily [facility] Valium Valium Yes Na Santana [address] as needed [facility] Aspirin Aspirin Yes Na Santana not [facility] defined [facility] Metformin Metformin Yes Na Santana [...] [facility] - MOUTH Memoria EVERY DAY l [facility]ics Aripiprazol Aripiprazol Yes Na Santana TAKE [address] [facility] [facility] e e TABLET BY [facility] - [facility]TH [facility]oria EVERY DAY l [facility] Carvedilol Carvedilol Yes Na Santana TAKE [address] [facility] TABLET BY [facility] - MOUTH Memoria TWICE l DAILY Outpati DIRECTED ent Clinics Topamax Topamax Yes Na Santana [address] [facility] Prasugrel Prasugrel Yes Na Santana as [facility] HCl HCl directed [facility] Rosuvastati Rosuvastati Yes Na Santana [address] n Calcium n Calcium [facility] Duloxetine Duloxetine Yes Na Santana TAKE [address] [facility] HCl HCl CAPSULE BY [facility] - MOUTH Memoria TWICE l DAILY [facility] Metformin Metformin Yes Na Santana [address] HCl HCl with meals [facility] Tramadol Tramadol Yes Na Santana not [facility] HCl HCl defined [facility] NovoLog NovoLog Yes Na Santana INJECT [address] Flexpen Flexpen UNITS [facility] - SUBCUTANEO Memoria USLY THREE l TIMES [facility] DAILY ent Clinics Quebradillas Quebradillas Yes Na Santana [address] as needed [facility] Immunizations Ordered Filled Immunization Date Status Comments [facility] e Immunization Name Name SARS-COV-2 COVID-19 2021-01-31 Completed Unive rsity of PFIZER VACCINE 00:00:00 [facility] Afluria single dose Afluria single dose 2019-05-[address] [facility] 00[facility] [facility] Outpatient [facility] Vital Signs Vital Name Observation Time Observation Value Comments Source Systolic blood 2021-04-24 18:09:00 170 mm[Hg] Univer sity of pressure [facility] Diastolic blood 2021-04-24 18:09:00 89 mm[Hg] Unive rsity of pressure [facility] Heart rate 2021-04-24 18:08:00 98 /min [facility] Body temperature 2021-04-24 18:08:00 36.61 Juju [facility] Respiratory rate 2021-04-24 18:08:00 19 /min [facility] height 2021-04-24 18:08:00 172.7 cm [facility] Body weight 2021-04-24 18:08:00 98.793 kg [facility] BMI 2021-04-24 18:08:00 33.12 kg/m2 [facility] Oxygen saturation in 2021-04-24 18:08:00 100 /min [facility] Arterial blood by [facility] Pulse oximetry [place] Procedures This patient has no known procedures. Encounters Start End Encounter Admission Attending Care Care Encounter Source Date/Time Date/Time Type Type Clinicians Facility Department ID 2021-05-22 2021-05-22 ambulatory [facility]LMLC [facility] [id number] [facility] Shannon castillo Outpat[facility] ent Clinics 2021-05-08 2021-05-08 ambulatory [facility]LMLC [facility]LMLC [id number] [facility]00 Shannon Noel l [facility] 2021-04-24 2021-04-24 Office Puneet Mauro [facility] [id number] Univers 12:59:20 17:02:56 Visit Health [id number] it y of Clear [id number] [facility] [id number] [address] Office Building 2021-04-24 2021-04-24 Outpatient PUNEET ORTEGA [facility] [id number] [facility] 13:00:00 13:00:00 [id number] ity [facility] 2021-04-24 2021-04-24 Outpatient PUNEET ORTEGA [facility] [id number] Univers 13:00:00 13:00:00 ity [facility] 2021-03-20 2021-03-20 Outpatient PUNEET ORTEGA [facility] [id number] Univers 13:45:00 13:45:00 [id number] ity [facility] 2021-03-20 2021-03-20 Outpatient R ZUNILDAPUNEET [facility] [id number] Univers 13:45:00 13:45:00 ity of [facility] 2021-03-06 2021-03-06 Outpatient R ZUNILDAPUNEET [facility] [id number] Univers 13:00:00 13:00:00 [id number] ity [facility] 2021-03-06 2021-03-06 Outpatient R ZUNILDAPUNEET [facility] [id number] Univers 13:00:00 13:00:00 ity of [facility] 2021-02-20 2021-02-20 Outpatient R ZUNILDAPUNEET [facility] [id number] Univers 14:30:00 14:30:00 [id number] ity [facility] 2021-02-20 2021-02-20 Outpatient R ZUNILDAPUNEET [facility] [id number] Univers 14:30:00 14:30:00 ity [facility] 2021-02-16 2021-02-16 Outpatient R ART [facility] [id number] Univers 09:00:00 09:00:00 LINDSAY [id number] ity [facility] 2021-02-16 2021-02-16 Outpatient R CORDOVA, [facility] [id number] Univers 09:00:00 09:00:00 LINDSAY ity [facility] 2021-01-31 2021-01-31 Outpatient R ZUNILDAPUNEET [facility] [id number] Univers 09:00:00 09:00:00 [id number] ity [facility] 2021-01-31 2021-01-31 Outpatient R ZUNILDAPUNEET [facility] [id number] Univers 00:00:00 00:00:00 ity [facility] 2021-01-23 2021-01-23 Outpatient R ZUNILDAPUNEET [facility] [id number] Univers 14:00:00 14:00:00 [id number] ity [facility] 2021-01-23 2021-01-23 Outpatient R ZUNILDA PUNEET [facility] [id number] Univers 14:00:00 14:00:00 ity [facility] 2021-01-12 2021-01-12 Outpatient R LORENA TEE [facility] [id number] Univers 14:20:00 14:20:00 LORENA TEE [id number] [facility] 2021-01-12 2021-01-12 Outpatient R LORENA TEE [facility] [id number] Univers 14:20:00 14:20:00 LORENA TEE [facility] 2021-01-03 2021-01-03 Outpatient [facility]LMLC [facility] [id number] [facility] 2021-01-02 2021-01-02 Outpatient R PUNEET MAURO [facility] [id number] Univers 11:00:00 11:00:00 [id number] [facility] 2021-01-02 2021-01-02 Outpatient R PUNEET MAURO [facility] [id number] Univers 11:00:00 11:00:00 [facility] 2020-12-21 2020-12-21 Outpatient R RADIOLOGY [facility] [id number] Univers 16:30:00 16:30:00 [id number] [facility] 2020-12-21 2020-12-21 Outpatient R RADIOLOGY [facility] [id number] Univers 00:00:00 00:00:00 [facility] 2020-12-14 2020-12-14 Outpatient [facility]LMLC [facility] [id number] [facility] 2020-12-13 2020-12-13 Outpatient STLMLC [facility]C [id number] [facility] 2020-12-12 2020-12-12 Outpatient R PUNEET MAURO [facility] [id number] Univers 11:00:00 11:00:00 [id number] [facility] 2020-12-12 2020-12-12 Outpatient R PUNEET MAURO [facility] [id number] Univers 11:00[facility]00 [facility] 2020-11-22 2020-11-22 Outpatient STLMLC STLMLC [id number] [facility] 2020-11-14 2020-11-14 Outpatient PUNEET ORTEGA [facility] [id number] Univers 09:30:00 09:30:00 [id number] [facility] 2020-11-14 2020-11-14 Outpatient PUNEET ORTEGA [facility] [id number] Univers 09:30:00 09:30:00 [facility] 2020-10-30 2020-10-30 Outpatient R MARILY [facility] [id number] Univers 09:30:00 09:30:00 NATHAN [id number] [facility] 2020-10-30 2020-10-30 Outpatient R MARILY [facility] [id number] Univers 09:30:00 09:30:00 NATHAN [facility] 2020-10-02 2020-10-02 Outpatient R MARILY [facility] [id number] Univers 09:30:00 09:30:00 NATHAN [id number] [facility] 2020-10-02 2020-10-02 Outpatient R MARILY [facility] [id number] Univers 09:30:00 09:30:00 NATHAN [facility] 2020-09-14 2020-09-14 Outpatient R MARILY [facility] [id number] Univers 14:45:00 14:45:00 NATHAN [id number] [facility] 2020-09-14 2020-09-14 Outpatient R MARILY [facility] [id number] Univers 14:45:00 14:45:00 NATHAN [facility] 2020-07-12 2020-07-12 Outpatient STLMLC STLMLC [id number] [facility] 2020-06-26 2020-06-26 Outpatient STLMLC STLMLC [id number] [facility] 2020-06-09 2020-06-09 Outpatient [facility] [id number] [facility]00 [facility] 2020-06-02 2020-06-02 [facility] [id number] 2020-02-25 2020-02-25 [facility] [id number] 16:20:00 16:20:00 t Lovejoy [employer] [facility] l Medicine Outpati ent Clinics 2020-02-18 2020-02-18 [facility] [id number] 09:04:00 09:04:00 t Answerology s [employer] [facility] Medicine Outpati ent Clinics 2020-01-26 2020-01-26 [facility] [id number] 11:20:00 11:20:00 t Answerology s [employer] [facility] Medicine Outpati ent Clinics 2019-11-15 2019-11-15 [facility] [id number] 13:40:00 13:40:00 t Answerology s [employer] [facility] Medicine Outpati ent Clinics 2019-11-08 2019-11-08 [facility] [id number] 09:46:00 09:46:00 t Answerology s [employer] [facility] Medicine Outpati ent Clinics 2019-10-26 2019-10-26 [facility] [id number] 16:29:00 16:29:00 t Answerology s [employer] [facility] Medicine Outpati ent Clinics 2019-10-13 2019-10-13 [facility] [id number] 10:00:00 10:00:00 t Answerology s [employer] [facility] Medicine Outpati ent Clinics 2019-07-26 2019-07-26 [facility] [id number] 10:32:00 10:32:00 t Answerology s [employer] [facility] Medicine Outpati ent Clinics 2019-07-26 2019-07-26 [facility] [id number] 09:41:00 09:41:[address] Luke s - Drive [facility] Medicine l Medicine Outpati ent Clinics 2019-06-10 2019-06-10 [facility] [id number] 16:53:00 16:53:[address] Luke s - Drive [facility] Medicine l Medicine Outpati ent Clinics 2019-05-03 2019-05-03 [facility] [id number] 14:00:00 14:00:00 t Lovejoy Lovejoy [employer] Luke s - Drive [facility] Medicine l Medicine Outpati ent Clinics 2019-04-08 2019-04-08 [facility] [id number] 16:06:00 16:06:00 t Lovejoy Lovejoy [email or web address] s - Drive [facility] Medicine Outpati ent Clinics 2019-02-24 2019-02-24 [facility] [id number] 11:34:00 11:34:00 t Lovejoy Lovejoy [email or web address] s - Drive [facility] Medicine l Medicine Outpati ent Clinics 2019-01-16 2019-01-16 [facility] [id number] 13:30:00 13:30:00 t [facility] Clinic l Outpati ent Clinics 2019-01-11 2019-01-11 [facility] [id number] 11:00:00 11:00:00 t [facility] Clinic l Outpati ent Clinics 2018-09-04 2018-09-04 [facility] [id number] 11:00:00 11:00:00 t Lovejoy Lovejoy [employer] Luke s - Drive [facility] Medicine Medicine Outpati ent Clinics 2018-02-02 2018-02-02 [facility] [id number] 11:15:00 11:15:00 t Lovejoy Lovejoy [employer] s - Drive [facility] Medicine l Medicine Outpati ent Clinics 2018-01-19 2018-01-19 [facility] [id number] 10:36:00 10:36:00 t Lovejoy Lovejoy [email or web address] s - Drive [facility] Medicine Outpati ent Clinics 2018-01-06 2018-01-06 [facility] [id number] 11:15:00 11:15:00 t Answerology s - Oviceversa [facility] Outpati ent Clinics 2018-01-05 2018-01-05 [facility] [id number] 11:13:00 11:13:00 [facility] Outpati ent Clinics 2018-01-01 2018-01-01 [facility] [id number] 13:00:00 13:00:00 t Urgent Urgent Care [facility] Outpati ent Clinics 2017-12-19 2017-12-19 [facility] [id number] 10:30:00 10:30:00 [facility] Outpati ent Clinics 2017-09-18 2017-09-18 [facility] [id number] 09:00:00 09:00:00 [facility] Outpati ent Clinics Results This patient has no known results.
--- NOTE | 2021-05-25 15:40 | RAD REPORT ---
EXAM DESCRIPTION: Deepthi Single View05/25/2021 3:32 pm CLINICAL HISTORY: Chest pain COMPARISON: May 22, 2021 FINDINGS: Elevation left hemidiaphragm is unchanged. Lungs appear clear of acute infiltrate. Heart is normal size
[2021-05-25] MEDS ORDERED: MORPHINE 4 MG/ML SYR ONE (15:45)
[2021-05-25] MEDS ORDERED: ONDANSETRON 4 MG/2 ML VIAL ONE (15:45)
[2021-05-25 16:02] LABS: Absolute Lymphocytes (CBC) 3.4 K/uL (0.7-4.9); Basophils % 0.3 % (0-1.3); Hematocrit 37.1 % (36.0-45.0); Lymphocytes % 19.4 % (15.3-44.8); MPV 9.6 fL (7.6-11.3); RBC Red Blood Cell Count 4.49 M/uL (3.86-4.86)
[2021-05-25 16:05] LABS: Protime INR 0.92
[2021-05-25 16:22] LABS: ALT/SGPT 32 U/L (12-78); AST/SGOT 23 U/L (15-37); Albumin 3.3 g/dL (3.4-5.0); Alkaline Phosphatase 128 U/L (45-117); BUN Blood Urea Nitrogen 17 mg/dL (7-18); Bicarbonate 22 mmol/L (21-32); Bilirubin Direct < 0.1 mg/dL (0-0.2); Bilirubin Total 0.3 mg/dL (0.2-1.0); Glucose Level 108 mg/dL (74-106); Magnesium 1.7 mg/dL (1.8-2.4); NT PRO-BNP 916 pg/mL (<125); Potassium 3.8 mmol/L (3.5-5.1); Protein, Total 7.4 g/dL (6.4-8.2); Sodium Level 142 mmol/L (136-145); Troponin (Emerg Dept Use Only) 0.43 ng/mL (0.0-0.045)
[2021-05-25] MEDS ORDERED: ASPIRIN 325 MG TAB PO ONE (17:09)
[2021-05-25] MEDS ORDERED: NITROGLYCERIN 0.4 MG/TAB SL PRN (17:09)
[2021-05-25] MEDS ORDERED: ACETAMINOPHEN 500 MG TAB PO PRN (17:09)
--- NOTE | 2021-05-25 17:17 | RAD REPORT ---
EXAM DESCRIPTION: CT - Chest Abdomen Pelvis W Cont - 05/25/2021 4:46 pm CLINICAL HISTORY: Chest and abdominal pain COMPARISON: None TECHNIQUE: Computed axial tomography of the chest, abdomen and pelvis was obtained. 100 cc Isovue-30 0 was administered intravenously. Oral contrast was not requested. This limits evaluation of bowel. All CT scans are performed using dose optimization technique as appropriate and may include automated exposure control or mA/KV adjustment according to patient size. FINDINGS: Calcified granuloma left lung. Remainder the lungs are clear. No mediastinal or hilar lymphadenopathy. A pleural effusion is not seen. No pericardial effusion. Hepatic and splenic granulomata. Cholecystectomy Pancreas, adrenals and kidneys appear unremarkable. No adnexal mass. Trace amount of ascites within the pelvis. Normal appendix. No evidence of diverticulitis. IMPRESSION: Trace amount of ascites Otherwise, no acute abnormality is displayed
--- NOTE | 2021-05-25 17:52 | ER ---
Nurse's Notes [facility] Name: Luz Nick Age: 55 yrs Sex: Female : 1965 Arrival Date: 05/25/2021 Time: 14:38 Bed 3 Private MD: Irish Santana Diagnosis: Subsequent non-ST elevation (NSTEMI) myocardial infarction Presentation: 05/25 14:54 Chief complaint: Patient states: "I had a heart attack about a week or two ago. They ss were going to admit me, but they let discharged me and told me that if I have chest pains, to go ahead and come back." Pt reports that chest pain that began last night. Coronavirus screen: Client denies travel out of the [place] in the last 14 days. Ebola Screen: Patient denies exposure to infectious person. Patient denies travel to an Ebola-affected area in the 21 days before illness onset. Initial Sepsis Screen: Does the patient meet any 2 criteria? No. Patient's initial sepsis screen is negative. Does the patient have a suspected source of infection? No. Patient's initial sepsis screen is negative. Risk Assessment: Do you want to hurt yourself or someone else? Patient reports no desire to harm self or others. Onset of symptoms was May 24, 2021. 14:54 Method Of Arrival: Ambulatory ss 14:54 Acuity: GORDY 2 ss Triage Assessment: 15:33 General: Appears distressed, Behavior is cooperative, appropriate for age, crying. kd3 Pain: Complains of pain in chest. 18:47 EENT: No deficits noted. Neuro: Level of Consciousness is awake, alert, obeys commands, kd3 Oriented to Appropriate for age. Cardiovascular: Rhythm is sinus rhythm. Respiratory: No deficits noted. GI: No signs and/or symptoms were reported involving the gastrointestinal system. : No signs and/or symptoms were reported regarding the genitourinary system. Derm: No deficits noted. Musculoskeletal: No deficits noted. 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 - Social history:: Smoking status: Patient denies any tobacco usage or history of. Screenin:26 Abuse screen: Denies threats or abuse. Denies injuries from another. Nutritional kd3 screening: No deficits noted. Tuberculosis screening: No symptoms or risk factors identified. Fall Risk IV access (20 points). Assessment: 15:26 Pain: Pain radiates to thoracic area. Cardiovascular: Reports chest pain. kd3 15:33 Pain: Pain began 2-3 days ago. kd3 16:30 Reassessment: No changes from previously documented assessment. Patient and/or family kd3 updated on plan of care and expected duration. Pain level reassessed. 17:30 Reassessment: No changes from previously documented assessment. Patient and/or family kd3 updated on plan of care and expected duration. Pain level reassessed. 18:00 Reassessment: ATTEMPTED TO CALL REPORT. NURSE UNAVAILABLE. kd3 18:30 Reassessment: NURSE UNAVAILABLE FOR REPORT FOR RM 225. kd3 Vital Signs: 14:54 Resp 22; Weight 94.8 kg; Height 5 ft. 8 in. (172.72 cm); Pain 10/10; ss 14:58 BP 167 / 97; Pulse 102; Temp 97.8(TE); Pulse Ox 100% on R/A; ss 15:32 BP 182 / 101; Pulse 91; Resp 18; Pulse Ox 100% on R/A; kd3 17:25 BP 150 / 98; Pulse 83; Resp 15; Pulse Ox 100% ; jl7 18:30 BP 157 / 81; Pulse 79; Resp 17; Pulse Ox 100% ; kd3 19:37 BP 137 / 72; Pulse 75; Resp 18; Pulse Ox 100% on R/A; df1 14:54 Body Mass Index 31.78 (94.80 kg, 172.72 cm) ss ED Course: 14:38 Patient arrived in ED. as 14:38 Irish Santana MD is Private Physician. as 14:56 Triage completed. ss 14:56 Arm band placed on left wrist. ss 15:03 Judson Choi MD is Attending Physician. kdr 15:25 EKG done, by ED staff, reviewed by Judson Choi MD. jl7 15:26 Brandi Eden, MANINDER is Primary Nurse. kd3 15:26 Patient has correct armband on for positive identification. Bed in low position. Call kd3 light in reach. Side rails up X2. employment interviewer on. Pulse ox on. NIBP on. 15:26 Patient maintains SpO2 saturation greater than 95% on room air. kd3 15:30 Inserted saline lock: 22 gauge in right forearm, using aseptic technique. jl7 15:32 XRAY Chest (1 view) In Process Unspecified. EDMS 15:42 Initial lab(s) drawn, by me, sent to lab. Inserted saline lock: 24 gauge in left jl7 forearm, using aseptic technique. Blood collected. 16:46 CT Chest, Abdomen, Pelvis - W/Contrast In Process Unspecified. EDMS 17:52 Darling Puri MD is Hospitalizing Provider. kdr Administered Medications: 15:45 Drug: morphine 4 mg Route: IVP; Site: left forearm; bp 17:59 Follow up: Response: Pain is decreased bp 15:45 Drug: Zofran (Ondansetron) 4 mg Route: IVP; Site: left forearm; bp 17:59 Follow up: Response: No adverse reaction bp Outcome: 17:52 Decision to Hospitalize by Provider. kdr 20:09 Patient left the ED. bb Signatures: Dispatcher [employer] EDMS Judson Choi MD MD kdr Martinez, Amelia as Ballard, Brenda, RN RN bb Dania Diallo RN RN Yuan Muse RN RN jl7 Radames Huggins RN RN bp Furlich, Dawn df1 Brandi Eden RN RN kd3 Corrections: (The following items were deleted from the chart) 18:46 15:33 Pain: Pain began kd3 kd3 18:47 15:33 General: Appears distressed, Behavior is cooperative, appropriate for age, kd3 crying, kd3
--- NOTE | 2021-05-25 17:53 | EDPHYS ---
Physician Documentation [facility] Name: Luz Nick Age: 55 yrs Sex: Female : 1965 Arrival Date: 05/25/2021 Time: 14:38 Bed 3 Private MD: Irish Santana ED Physician Judson Choi HPI: 05/25 15:28 This 55 yrs old Female presents to ER via Ambulatory with complaints of Chest kdr Pain. 15:28 The patient or guardian reports chest pain that is located primarily in the substernal kdr area, anterior chest wall. Onset: suddenly, last night. The pain radiates to Associated signs and symptoms: Pertinent positives: nausea, shortness of breath, Pertinent negatives: cough, diaphoresis, dizziness, headache, lower extremity pain, lower extremity swelling, lightheadedness, near syncope, palpitations, recent travel, shortness of breath, syncope, vomiting. The chest pain is described as aching, dull, a pressure. Duration: The patient or guardian reports a single episode, that is still ongoing, and unchanged. Modifying factors: The symptoms are alleviated by nothing. the symptoms are aggravated by nothing. Severity of pain: At its worst the pain was mild in the emergency department the pain. The patient has not experienced similar symptoms in the past. MULTICULTURAL INTERNSHIP: 15:42 LMP N/A - Post-menopause jl7 Historical: - Allergies: 14:56 PENICILLINS; ss - PMHx: 14:56 Diabetes - NIDDM; Hypertension; Migraines; Myocardial infarction; ss - PSHx: 14:56 cardiac stent; section; Cholecystectomy; ss - Immunization history:: Client reports receiving the 2nd dose of the Covid vaccine. - Social history:: Smoking status: Patient denies any tobacco usage or history of. ROS: 15:28 Constitutional: Negative for fever, chills, and weight loss, Eyes: Negative for injury, kdr pain, redness, and discharge, ENT: Negative for injury, pain, and discharge, Neck: Negative for injury, pain, and swelling, Respiratory: Negative for shortness of breath, cough, wheezing, and pleuritic chest pain, Abdomen/GI: Negative for abdominal pain, nausea, vomiting, diarrhea, and constipation, Back: Negative for injury and pain, : Negative for injury, bleeding, discharge, and swelling, MS/Extremity: Negative for injury and deformity, Skin: Negative for injury, rash, and discoloration, Neuro: Negative for headache, weakness, numbness, tingling, and seizure activity. Psych: Negative for depression, anxiety, suicide ideation, homicidal ideation, and hallucinations, Allergy/Immunology: Negative for hives, rash, and allergies, Endocrine: Negative for neck swelling, polydipsia, polyuria, polyphagia, and marked weight changes, Hematologic/Lymphatic: Negative for swollen nodes, abnormal bleeding, and unusual bruising. 15:28 Cardiovascular: Positive for chest pain, Negative for edema, orthopnea, palpitations, paroxysmal nocturnal dyspnea. Exam: 15:28 Constitutional: This is a well developed, well nourished patient who is awake, alert, kdr and in no acute distress. Head/Face: Normocephalic, atraumatic. Eyes: Pupils equal round and reactive to light, extra-ocular motions intact. Lids and lashes normal. Conjunctiva and sclera are non-icteric and not injected. Cornea within normal limits. Periorbital areas with no swelling, redness, or edema. Neck: Trachea midline, no thyromegaly or masses palpated, and no cervical lymphadenopathy. Supple, full range of motion without nuchal rigidity, or vertebral point tenderness. No Meningismus. Chest/axilla: Normal chest wall appearance and motion. Nontender with no deformity. No lesions are appreciated. Cardiovascular: Regular rate and rhythm with a normal S1 and S2. No gallops, murmurs, or rubs. Normal PMI, no JVD. No pulse deficits. Respiratory: Lungs have equal breath sounds bilaterally, clear to auscultation and percussion. No rales, rhonchi or wheezes noted. No increased work of breathing, no retractions or nasal flaring. Abdomen/GI: Soft, non-tender, with normal bowel sounds. No distension or tympany. No guarding or rebound. No evidence of tenderness throughout. 15:28 Cardiovascular: Rate: tachycardic, actual rate is 112 bpm. 15:28 ECG was reviewed by the Attending Physician. kdr Vital Signs: 14:54 Resp 22; Weight 94.8 kg; Height 5 ft. 8 in. (172.72 cm); Pain 10/10; ss 14:58 BP 167 / 97; Pulse 102; Temp 97.8(TE); Pulse Ox 100% on R/A; ss 15:32 BP 182 / 101; Pulse 91; Resp 18; Pulse Ox 100% on R/A; kd3 17:25 BP 150 / 98; Pulse 83; Resp 15; Pulse Ox 100% ; jl7 18:30 BP 157 / 81; Pulse 79; Resp 17; Pulse Ox 100% ; kd3 19:37 BP 137 / 72; Pulse 75; Resp 18; Pulse Ox 100% on R/A; df1 14:54 Body Mass Index 31.78 (94.80 kg, 172.72 cm) ss MDM: 17:52 Patient medically screened. kdr 17:52 Data reviewed: vital signs, nurses notes, lab test result(s), radiologic studies. kdr Counseling: I had a detailed discussion with the patient and/or guardian regarding: the historical points, exam findings, and any diagnostic results supporting the discharge/admit diagnosis, lab results, radiology results, the need for outpatient follow up. 05/25 15:05 Order name: Basic Metabolic Panel; Complete Time: 16:23 [facility] 05/25 15:05 Order name: CBC with Diff; Complete Time: 16:23 [facility] 05/25 15:05 Order name: LFT's; Complete Time: 16:23 [facility] 05/25 15:05 Order name: Magnesium; Complete Time: 16:23 [facility] 05/25 15:05 Order name: NT PRO-BNP; Complete Time: 16:23 [facility] 05/25 15:05 Order name: PT-INR; Complete Time: 16:23 [facility] 05/25 15:05 Order name: Troponin (emerg Dept Use Only); Complete Time: 16:23 [facility] 05/25 17:14 Order name: CKMB Creatine Kinase MB EDPA 05/25 17:14 Order name: Comprehensive Metabolic Panel [facility] 05/25 17:14 Order name: Creatine Phosphokinase EDPA 05/25 17:14 Order name: Troponin I EDPA 05/25 17:14 Order name: CBC with Automated Diff [facility] 05/25 17:30 Order name: SARS-COV-2 RT PCR (Document "Date of Onset" if Symptomatic) em1 05/25 17:31 Order name: SARS-COV-2 RT PCR EDPA 05/25 15:05 Order name: XRAY Chest (1 view); Complete Time: 16:23 [facility] 05/25 15:05 Order name: EKG; Complete Time: 15:06 [facility] 05/25 15:05 Order name: Cardiac monitoring; Complete Time: 15:24 [facility] 05/25 15:05 Order name: EKG - Nurse/Tech; Complete Time: 15:24 [facility] 05/25 15:05 Order name: IV Saline Lock; Complete Time: 15:24 [facility] 05/25 15:05 Order name: Labs collected and sent; Complete Time: 15:43 [facility] 05/25 15:05 Order name: O2 Per Protocol; Complete Time: 15:24 [facility] 05/25 15:05 Order name: O2 Sat Monitoring; Complete Time: 15:24 [facility] 05/25 15:55 Order name: CT Chest, Abdomen, Pelvis - W/Contrast [facility] 05/25 17:14 Order name: CONS Physician Consult [facility] 05/25 17:14 Order name: Heart Healthy [facility] 05/25 17:14 Order name: EKG Electrocardiogram [facility] 05/25 17:14 Order name: EKG Electrocardiogram [facility] 05/25 17:14 Order name: EKG Electrocardiogram [facility] EC:28 Rate is 80 beats/min. Rhythm is regular, Sinus Rhythm with No ectopy. QRS [place] is kdr Normal. MD interval is normal. QRS interval is normal. QT interval is normal. Clinical impression: NSR w/ Non-specific ST/T Changes. Administered Medications: 15:45 Drug: morphine 4 mg Route: IVP; Site: left forearm; bp 17:59 Follow up: Response: Pain is decreased bp 15:45 Drug: Zofran (Ondansetron) 4 mg Route: IVP; Site: left forearm; bp 17:59 Follow up: Response: No adverse reaction bp Disposition Summary: 05/25/21 17:52 Hospitalization Ordered Hospitalization Status: Inpatient Admission kdr Provider: Darling Puri kdr Location: Telemetry/MedSurg (Inpatient) kdr Condition: Fair kdr Problem: an acute exacerbation kdr Symptoms: have improved kdr Bed/Room Type: Standard kdr Room Assignment: 225(05/25/21 17:55) em1 Diagnosis - Subsequent non-ST elevation (NSTEMI) myocardial infarction kdr Forms: - Medication Reconciliation Form kdr - SBAR form kdr Signatures: Dispatcher [employer] EDPA Judson Choi MD MD kdr Denis Baig em1 Dania Diallo RN RN ss Radames Huggins, RN RN bp Corrections: (The following items were deleted from the chart) 17:55 17:52 kdr em1
--- NOTE | 2021-05-25 18:27 | HP ---
Date of Admission: 05/25/2021 Reason For Admission: Chest pain. History Of Present Illness: This is a 55-year-old, history of multiple medical problems including di abetes, hypertension, hyperlipidemia, coronary artery disease, status post multiple stent, presented to emergency room today with progressive chest pain started this morning when she was at rest. The sriram bedolla was seen last Friday with another episode of chest pain. She was told at that time she nee d to follow up with outpatient. On arrival today, she reported the pain was all over her chest, radi ating to her back, and left arm with nausea, shortness of breath. In the ER, she was evaluated and c hest x-ray was done and was negative. CT of the chest, abdomen, pelvis was negative, although but th ere is no report yet on preliminary. The patient was discussed with Cardiology and advised to admit her so she can have a cardiac cath on Friday. Her creatinine was borderline elevated at 0.43. BNP w as 916. She currently trending down. She felt comfortable. Her chest pain improved after given med ication in the emergency room. Her son was at the bedside. Review of Systems: Otherwise negative. Past Medical History: Significant for hypertension, hyperlipidemia, coronary artery disease, status post PCI, multiple stent placement, diabetes, neuropathy. Past Surgical History: Significant for appendectomy, cholecystectomy. Past Surgical History: Significant for cholecystectomy, . Allergies: TO PENICILLIN. Social History: She is single. Have 1 kid. Does not drink, smoke, or use any drugs. Family History: Significant for father of an PA. Mother of hemodialysis. Medication List: Need to be verified. Review of Systems: Denies any fever, chills, night sweats, dizziness, headache, blurred vision. She has shortness of br eath. No cough, sore throat. There was no palpitation. She did have PND and orthopnea. She has na usea, but no vomiting. No abdominal pain, diarrhea, constipation, dysuria, frequency, urgency, hemat uria, history of depression, anxiety, seizure or stroke. Physical Examination: Vital Signs: Currently, blood pressure is 138/83, respiratory rate 17, pulse 85, temperature normal, O2 saturation 99%. General: She is alert and oriented x3. Does not look in any distress. HEENT: Atraumatic, normocephalic. PERRLA. Oral mucosa is moist. Neck: Supple. No JVD. No carotid bruits. Chest: Clear to auscultation. Good air entry. Heart: Regular rate and rhythm. S1, S2 normal. No gallop or murmur. Abdomen: Soft, nontender with no hepatosplenomegaly. Positive bowel sounds. Extremities: No clubbing, cyanosis, or edema. No calf tenderness. Neurologic: Grossly intact. Laboratory Data: Today, white blood cells 17.7, otherwise normal CBC. normal. CMP is no rmal except for chloride of 108, GFR 68, glucose 108, magnesium 1.7. Troponin 0.43. 128. EKG, normal sinus rhythm. Assessment And Plan: 55-year-old woman, who has multiple admission for chest pain with extensive his tory of coronary artery disease, hypertension, hyperlipidemia, neuropathy, admitted again with chest pain. 1.Chest pain, rule out myocardial infarction. In addition to the tele care, on anticoagulation for this of Lovenox, aspirin, Plavix. She will be continued on her home medication with Coreg as well as a statin. Cardiac enzyme to be checked for 3 times. She will follow up with . The patie nt already had a stress test was unremarkable recently on most recent admission, so we will proceed w ith cardiac cath on Friday with Cardiology. Cardiology consult requested. 2.Diabetes. We will place patient on her home dose of Lantus as well as insulin sliding scale. 3.Neuropathy. The patient will be continued on Cymbalta. 4.Symptomatic treatment for pain. CHAS/SHON Voice ID: [id number]
[2021-05-25] MEDS ORDERED: ACETAMINOPHEN 500 MG TAB ONE (19:49)
[2021-05-25] MEDS ORDERED: [UNRECOGNIZED DRUG - OTHER] SQ SCH (20:49)
[2021-05-25] MEDS ORDERED: METOPROLOL TAR 50 MG TAB PO SCH (21:00)
[2021-05-25] MEDS: ATORVASTATIN 40 MG TAB PO SCH (21:21)
[2021-05-25] MEDS: ENOXAPARIN 100 MG/ML SYR SQ SCH (21:21)
[2021-05-25 22:25] VITALS: BMI 31.7
[2021-05-25] MEDS: COLCHICINE 0.6 MG TAB PO SCH (22:32)
[2021-05-25] MEDS: CLONIDINE HCL 0.3 MG TAB PO SCH (22:33)
[2021-05-25] MEDS: DULOXETINE 30 MG CAP PO SCH (22:33)
[2021-05-25] MEDS: carvediloL 25 MG TAB PO SCH (22:34)
[2021-05-25] MEDS: TOPIRAMATE 100 MG TAB PO SCH (22:34)
[2021-05-26 03:00] LABS: CKMB Creatine Kinase MB 2.1 ng/mL (1.0-3.6)
[2021-05-26] MEDS ORDERED: GLUCAGON 1 MG/VIAL IM PRN (05:54)
[2021-05-26] MEDS ORDERED: D50W 25 GM/50 ML SYRINGE IV PRN (05:54)
[2021-05-26] MEDS: TRAMADOL HCL 50 MG TAB PO PRN ×2 (06:07→15:35)
[2021-05-26] MEDS: INSULIN -REGULAR HUMAN 50 UNIT/0.5 ML ML SQ SCH ×4 (07:30→21:00)
[2021-05-26] MEDS: INSULIN GLARGINE 100 UNIT/ML SQ SCH (09:00)
[2021-05-26 09:42] LABS: Absolute Lymphocytes (CBC) 2.4 K/uL (0.7-4.9); Basophils % 3.1 % (0-1.3); Hematocrit 34.8 % (36.0-45.0); Lymphocytes % 20.3 % (15.3-44.8); RBC Red Blood Cell Count 4.16 M/uL (3.86-4.86)
[2021-05-26 09:54] LABS: Albumin 3.1 g/dL (3.4-5.0); Bilirubin Total 0.3 mg/dL (0.2-1.0); Potassium 3.8 mmol/L (3.5-5.1); Protein, Total 6.8 g/dL (6.4-8.2)
[2021-05-26] MEDS: METFORMIN HCL 500 MG TAB PO SCH ×2 (09:54→16:48)
[2021-05-26] MEDS: CLONIDINE HCL 0.3 MG TAB PO SCH ×3 (09:54→22:23)
[2021-05-26] MEDS: COLCHICINE 0.6 MG TAB PO SCH ×2 (09:55→22:21)
[2021-05-26] MEDS: CYCLOBENZAPRINE 10 MG TAB PO SCH (09:55)
[2021-05-26] MEDS: ENOXAPARIN 100 MG/ML SYR SQ SCH ×2 (09:55→22:24)
[2021-05-26] MEDS: carvediloL 25 MG TAB PO SCH ×2 (09:55→22:23)
[2021-05-26] MEDS: DULOXETINE 30 MG CAP PO SCH ×2 (09:55→22:23)
[2021-05-26] MEDS: TOPIRAMATE 100 MG TAB PO SCH ×2 (09:56→22:23)
[2021-05-26] MEDS: CLOPIDOGREL 75 MG TABLET PO SCH (09:56)
[2021-05-26 10:13] LABS: Platelet Estimate ADEQ; White Blood Cell Scan OK (OK)
[2021-05-26 10:14] LABS: Anisocytosis 1+; Blood Morphology Comment NOTED (NOT SEEN); Polychromasia SLIGHT
--- NOTE | 2021-05-26 11:38 | P.PN ---
Subjective Date of Service: 05/26/21 Doing well this monring, sleeping, she only have chest pain with exertion, no fever or chills, appetite good Physical Examination - Vital Signs Temperature: 97.6 F Blood Pressure: 150/76 Pulse: 57 Respirations: 18 Pulse Ox (%): 100 - Studies Laboratory Data (last 24 hrs) 05/25/21 15:40: PT 10.6, INR 0.92 05/25/21 15:40: WBC 17.70 H, Hgb 12.2, Hct 37.1, Plt Count 213 05/25/21 15:40: Sodium 142, Potassium 3.8, BUN 17, Creatinine 0.87, Glucose 108 H, Magnesium 1.7 L, Total Bilirubin 0.3, AST 23, ALT 32, Alkaline Phosphatase 128 H Assessment & Plan Physician Review Additional Text: GENERAL: The patient is a well-developed, well-nourished, in no apparent distress. Alert and oriented x3. VITAL SIGNS: Reviewed HEENT: Head is normocephalic and atraumatic. Extraocular muscles are intact. Pupils are equal, round, and reactive to light and accommodation. Mouth is well hydrated and without lesions. Mucous membranes are moist. NECK: Supple. No carotid bruits. No lymphadenopathy or thyromegaly. LUNGS: Clear to auscultation. No crackles or wheezes are heard. HEART: Regular rate and rhythm, no appreciable gallops, rubs, murmurs or extra heart sounds ABDOMEN: over weight, Soft, non tender, and non distended. Positive bowel sounds. No hepatosplenomegaly was noted. EXTREMITIES: Without any cyanosis, clubbing, rash, lesions or peripheral edema. NEUROLOGIC: The patient is oriented to person, place and time. Strength and sensation are grossly intact. Face is symmetric. SKIN: Normal color, turgor and temperature. No ulcerations or rashes noted. ASSESSMENT and Plan Chest pain /NSTEMI -today troponin cont to be elevated, but no significant chest pain, will cont pt on med with ASA, BB and statin, PRN nrito, she is on full dose of Lovenox Cardio consult pending, Cath on friday Hyperlipidemia -well controlled, cont statin DM -borderline controlled on ISS and home meds metformin Hypomagnemia -will replace , start protocol Neuropathy -on cymbalata stable at baseilne
[2021-05-26 11:42] LABS: CKMB Creatine Kinase MB 1.6 ng/mL (1.0-3.6)
--- NOTE | 2021-05-26 17:39 | CON ---
Date of Consultation: 05/26/2021 Reason For Consultation: Chest pain. History Of Present Illness: A 55-year-old female with history of coronary artery disease, diabetes, hypertension, dyslipidemia, had stents in the past, comes in with chest pain on minimal exertion that is getting progressively worse along with shortness of breath on minimal exertion. At rest, she is chest-pain free. She was ruled in for [id number] myocardial infarction. Past Medical History: As outlined above in the HPI. Medications: Refer reconciliation sheet for detailed list. Allergies: PENICILLIN. Past Surgical History: Appendectomy, cholecystectomy, , and multiple cardiac stents. Family History: No premature coronary artery disease or cancer. Social History: She does not smoke or drink. Does not use any drugs. Review of Systems: All systems were reviewed and they are negative except for mentioned in HPI. Physical Examination: Vital Signs: Reviewed. Head and Neck: Pupils are equal and reactive to light. Intact eye movements. No JVD. No cervical lymphadenopathy. Neck: Supple. Thyroid is not enlarged. Lungs: Clear to auscultation bilaterally. No rhonchi, rales, or crackles. No accessory muscle use. Heart: Regular rate and rhythm. No extra sounds. Abdomen: Soft, nontender. Bowel sounds positive. No organomegaly. No masses or hernia. No rigidi ty or rebound. Extremities: No edema, clubbing, or cyanosis. Intact pulses. Skin: No rash. Neurologic: Alert, awake, and oriented x3. No acute focal deficits appreciated. Investigations: Troponin as of yesterday was 1.29 with white blood count of 11.9 and hemoglobin 11.1 . Assessment And Recommendations: [id number] myocardial infarction. Continue with Lovenox 1 mg/ kg subcu q.12 hours and aspirin. Obtain an echo and to keep over the weekend plan for coronary angio gram on Friday. Please trend troponin until it peaks. Thank you for the consult. /SHON Voice ID: [id number] Report ID: [id number]
[2021-05-26] MEDS ORDERED: ONDANSETRON 4 MG/2 ML VIAL IV PRN (21:29)
[2021-05-26] MEDS: ATORVASTATIN 40 MG TAB PO SCH (22:22)
[2021-05-26] MEDS: ASPIRIN EC 81 MG TAB PO SCH (22:29)
[2021-05-27] MEDS: INSULIN -REGULAR HUMAN 50 UNIT/0.5 ML ML SQ SCH ×4 (07:30→21:00)
[2021-05-27] MEDS: METFORMIN HCL 500 MG TAB PO SCH ×2 (08:38→16:02)
[2021-05-27] MEDS: DULOXETINE 30 MG CAP PO SCH ×2 (08:39→20:58)
[2021-05-27] MEDS: CLONIDINE HCL 0.3 MG TAB PO SCH ×3 (08:39→21:06)
[2021-05-27] MEDS: COLCHICINE 0.6 MG TAB PO SCH ×2 (08:39→20:58)
[2021-05-27] MEDS: ASPIRIN EC 81 MG TAB PO SCH (08:39)
[2021-05-27] MEDS: carvediloL 25 MG TAB PO SCH ×2 (08:39→21:06)
[2021-05-27] MEDS: CYCLOBENZAPRINE 10 MG TAB PO SCH (08:39)
[2021-05-27] MEDS: CLOPIDOGREL 75 MG TABLET PO SCH (08:40)
[2021-05-27] MEDS: INSULIN GLARGINE 100 UNIT/ML SQ SCH (08:40)
[2021-05-27] MEDS: ENOXAPARIN 100 MG/ML SYR SQ SCH ×2 (08:40→21:00)
[2021-05-27] MEDS: TOPIRAMATE 100 MG TAB PO SCH ×2 (08:40→20:59)
[2021-05-27] MEDS ORDERED: ASPIRIN EC 81 MG TAB PO SCH (09:00)
--- NOTE | 2021-05-27 10:05 | P.PN ---
Subjective Date of Service: 05/27/21 Doing well this ,she reported some chest pain last night but resolved this AM, no fever or chills, appetite good waiting for cath in am Physical Examination - Vital Signs Temperature: 97.7 F Blood Pressure: 142/73 Pulse: 65 Respirations: 18 Pulse Ox (%): 100 Assessment & Plan Physician Review Additional Text: GENERAL: The patient is a well-developed, well-nourished, in no apparent distress. Alert and oriented x3. VITAL SIGNS: Reviewed HEENT: Head is normocephalic and atraumatic. Extraocular muscles are intact. Pupils are equal, round, and reactive to light and accommodation. Mouth is well hydrated and without lesions. Mucous membranes are moist. NECK: Supple. No carotid bruits. No lymphadenopathy or thyromegaly. LUNGS: Clear to auscultation. No crackles or wheezes are heard. HEART: Regular rate and rhythm, no appreciable gallops, rubs, murmurs or extra heart sounds ABDOMEN: over weight, Soft, non tender, and non distended. Positive bowel sounds. No hepatosplenomegaly was noted. EXTREMITIES: Without any cyanosis, clubbing, rash, lesions or peripheral edema. NEUROLOGIC: The patient is oriented to person, place and time. Strength and sensation are grossly intact. Face is symmetric. SKIN: Normal color, turgor and temperature. No ulcerations or rashes noted. ASSESSMENT and Plan Chest pain /NSTEMI -Today Troponin cont to be elevated, but no significant chest pain, will cont pt on med with ASA, BB and statin, PRN Nitro, cont full dose of Lovenox till aftercath given elevated troponin Cardio consult pending, Cath on friday Hyperlipidemia -well controlled, cont statin HTN -well controlled, cont meds as before DM -better controlled today on ISS and home meds metformin Hypomagnemia -replaced , willcheck MG today, results pending Neuropathy -on cymbalata stable at baseline DC plan in AM depend on cath results and if stent needed or not
[2021-05-27 12:48] LABS: Potassium 3.3 mmol/L (3.5-5.1)
[2021-05-27 12:49] LABS: Bilirubin Total 0.3 mg/dL (0.2-1.0); Magnesium 1.6 mg/dL (1.8-2.4); Protein, Total 6.3 g/dL (6.4-8.2)
[2021-05-27] MEDS ORDERED: MAGNESIUM SULFATE 1 gm IVPB 1 GM/100 ML BAG IV ONE (13:00)
[2021-05-27] MEDS ORDERED: POTASSIUM CL SA 10 MEQ TAB PO ONE (13:00)
--- NOTE | 2021-05-27 13:18 | PN ---
Date of Progress Note: 05/27/2021 Subjective: Seen at bedside, doing well. No further chest pain. Review of Systems: No chest pain, shortness of breath, orthopnea, cough. No nausea, vomiting, diarrhea. No abdominal p ain. All other systems reviewed are negative. Physical Examination: Vital Signs: Temperature is 97.6, pulse 65, breathing 16, blood pressure 136/66. General: Pleasant, middle-aged female, in no apparent distress. Head and Neck: Pupils are equal, reactive to light. Intact eye movements. No JVD. No cervical lym phadenopathy. Neck: Supple. Thyroid is not enlarged. Lungs: Clear to auscultation bilaterally. No rhonchi, rales, or crackles. No accessory muscle use. Heart: Regular rate and rhythm. No extra sounds. Abdomen: Soft, nontender. Bowel sounds positive. No organomegaly. No masses or hernia. No rigidi ty or rebound. Extremities: No edema, clubbing, or cyanosis. Intact pulses. Skin: No rash. No nodules. Neurologic: Alert, awake, oriented x3. No acute focal deficits appreciated. Investigations: Troponin is down to 0.99 and creatinine is 0.81. Assessment And Recommendations: Non-ST segment elevation myocardial infarction. Keep n.p.o. past mi dnight. Plan for coronary angiogram tomorrow morning. This evening's Lovenox to be held in preparation for the procedure tomorrow. Cont inue aspirin. SR/MODL Voice ID: [id number] Report ID: [id number]
[2021-05-27] MEDS: ATORVASTATIN 40 MG TAB PO SCH (20:58)
[2021-05-27] MEDS: ALPRAZOLAM 0.25 MG TABLET PO PRN (23:29)
[2021-05-28 06:12] LABS: Albumin 2.7 g/dL (3.4-5.0); Bilirubin Total 0.3 mg/dL (0.2-1.0); Potassium 3.8 mmol/L (3.5-5.1); Protein, Total 5.9 g/dL (6.4-8.2)
[2021-05-28 06:55] LABS: Magnesium 1.8 mg/dL (1.8-2.4)
[2021-05-28] MEDS: INSULIN -REGULAR HUMAN 50 UNIT/0.5 ML ML SQ SCH ×4 (07:30→22:09)
[2021-05-28] MEDS: METFORMIN HCL 500 MG TAB PO SCH ×2 (08:00→17:00)
[2021-05-28] MEDS: INSULIN GLARGINE 100 UNIT/ML SQ SCH (09:00)
[2021-05-28] MEDS ORDERED: POTASSIUM 25 MEQ EFFERV TAB PO ONE (09:00)
[2021-05-28] MEDS ORDERED: MAGNESIUM SULFATE 1 gm IVPB 1 GM/100 ML BAG IV ONE (09:00)
[2021-05-28] MEDS: CLOPIDOGREL 75 MG TABLET PO SCH (09:55)
[2021-05-28] MEDS: COLCHICINE 0.6 MG TAB PO SCH ×2 (09:55→20:51)
[2021-05-28] MEDS: TOPIRAMATE 100 MG TAB PO SCH ×2 (09:56→20:53)
[2021-05-28] MEDS: DULOXETINE 30 MG CAP PO SCH ×2 (09:56→20:52)
[2021-05-28] MEDS: CYCLOBENZAPRINE 10 MG TAB PO SCH (09:56)
[2021-05-28] MEDS: ASPIRIN EC 81 MG TAB PO SCH (09:56)
[2021-05-28] MEDS: carvediloL 25 MG TAB PO SCH ×2 (09:57→21:00)
[2021-05-28] MEDS: CLONIDINE HCL 0.3 MG TAB PO SCH ×3 (09:58→21:00)
[2021-05-28] MEDS: MORPHINE 2 MG/ML SYR IV PRN (09:58)
[2021-05-28] MEDS ORDERED: NA CHLORIDE 0.9% 500 ML ONE (12:29)
[2021-05-28] MEDS ORDERED: HEPA 1000U/500MLS 2,000 UNIT/1,000 ML BAG IV ONE (13:33)
[2021-05-28] MEDS ORDERED: FENTANYL CITR 100 MCG/2 ML ONE (13:34)
[2021-05-28] MEDS ORDERED: VERAPAMIL HCL 10 MG/4 ML VIAL IV ONE (13:34)
[2021-05-28] MEDS ORDERED: MIDAZOLAM HCL 2 MG/2 ML INJ ONE (13:34)
[2021-05-28] MEDS ORDERED: NITROGLYCERIN 100 MCG/ML SYR (for cath lab use only) IV ONE (13:35)
[2021-05-28] MEDS ORDERED: ATROPINE SULF 1 MG/10 ML SYR IV ONE (13:35)
[2021-05-28] MEDS ORDERED: HEPARIN 5000 UNIT/ML 1 ML VIAL ONE (13:35)
[2021-05-28] MEDS ORDERED: CLOPIDOGREL 75 MG TABLET ONE (14:45)
[2021-05-28] MEDS ORDERED: ONDANSETRON 4 MG/2 ML VIAL ONE (14:59)
[2021-05-28] MEDS: ATORVASTATIN 40 MG TAB PO SCH (20:52)
[2021-05-28] MEDS ORDERED: ACETAMINOPHEN 325 MG TABLET PO PRN (20:58)
[2021-05-28] MEDS: TRAMADOL HCL 50 MG TAB PO PRN (21:03)
[2021-05-28] MEDS: ALPRAZOLAM 0.25 MG TABLET PO PRN (23:48)
[2021-05-29] MEDS: MORPHINE 2 MG/ML SYR IV PRN (00:55)
[2021-05-29 06:43] LABS: Magnesium 2.1 mg/dL (1.8-2.4); Potassium 3.6 mmol/L (3.5-5.1)
--- NOTE | 2021-05-29 07:09 | EKG ---
Test Date: 2021-05-26 Test Time: 21:25:25 Multiple Pressure Riveter Operator: RT-O MEASUREMENT RESULTS: Intervals: Rate: 67 MT: 164 QRSD: 66 QT: 394 QTc: 416 [place]: P: 28 MT: 164 QRS: -6 T: 91 INTERPRETIVE STATEMENTS: Normal sinus rhythm Possible Left atrial enlargement Septal infarct, age undetermined Abnormal ECG Compared to ECG 05/25/2021 15:15:35 No significant changes Electronically Signed On 05-29-21 07:04:55 SR. CONSULTANT by Driss Maradiaga
[2021-05-29] MEDS: INSULIN -REGULAR HUMAN 50 UNIT/0.5 ML ML SQ SCH ×2 (07:30→13:01)
[2021-05-29] MEDS: carvediloL 25 MG TAB PO SCH (08:28)
[2021-05-29] MEDS: CYCLOBENZAPRINE 10 MG TAB PO SCH (08:30)
[2021-05-29] MEDS: DULOXETINE 30 MG CAP PO SCH (08:31)
[2021-05-29] MEDS: CLOPIDOGREL 75 MG TABLET PO SCH (08:31)
[2021-05-29] MEDS: TOPIRAMATE 100 MG TAB PO SCH (08:31)
[2021-05-29] MEDS: ASPIRIN EC 81 MG TAB PO SCH (08:31)
[2021-05-29] MEDS: METFORMIN HCL 500 MG TAB PO SCH (08:31)
[2021-05-29] MEDS: CLONIDINE HCL 0.3 MG TAB PO SCH ×2 (08:32→13:01)
[2021-05-29] MEDS: ENOXAPARIN 100 MG/ML SYR SQ SCH (08:33)
[2021-05-29] MEDS: INSULIN GLARGINE 100 UNIT/ML SQ SCH (08:33)
[2021-05-29] MEDS: COLCHICINE 0.6 MG TAB PO SCH (08:38)
[2021-05-29 09:00] VITALS: TEMP 96.9
[2021-05-29] MEDS ORDERED: POTASSIUM 25 MEQ EFFERV TAB PO ONE (09:00)
--- NOTE | 2021-05-29 11:54 | EKG ---
Test Date: 2021-05-29 Test Time: 07:14:00 Blasting Coal Miner: RONNIE MEASUREMENT RESULTS: Intervals: Rate: 75 IN: 178 QRSD: 70 QT: 388 QTc: 433 [place]: P: 37 IN: 178 QRS: 5 T: 82 INTERPRETIVE STATEMENTS: Normal sinus rhythm Normal ECG Compared to ECG 05/26/2021 21:25:25 Myocardial infarct finding no longer present Electronically Signed On 05-29-21 11:53:29 COUNTY SUPERVISOR by Driss Maradiaga
[2021-05-29 13:03] VITALS: BP 126/72
[2021-05-29 15:06] VITALS: O2SAT 99
== END 2021-05-29 15:06 | disposition home or self-care (01) | DRG 247 ==
LOC: ER 14:37 → SUPCPDRO 14:37 → ERHOLD 17:53 → 2ND 19:14
PROVIDERS: ADMIT Internal Medicine; ATTEND Hospitalist
PROC: 027034Z Dilation of Coronary Artery, One Artery with Drug-eluting Intraluminal Device, Percutaneous Approach (ICD-10-PCS; principal; 2021-05-28)
DX: I22.2 Subsequent non-ST elevation (NSTEMI) myocardial infarction (principal); I21.9 Acute myocardial infarction, unspecified; E78.5 Hyperlipidemia, unspecified; E11.40 Type 2 diabetes mellitus with diabetic neuropathy, unspecified; E83.42 Hypomagnesemia; I10 Essential (primary) hypertension; I25.10 Atherosclerotic heart disease of native coronary artery without angina pectoris; Z88.0 Allergy status to penicillin; Z90.49 Acquired absence of other specified parts of digestive tract; Z20.822 Contact with and (suspected) exposure to COVID-19
CPT/HCPCS: 36415; 71045; 71260; 74177; 80048; 80053; 80061; 80076; 82550; 82553; 82947; 83735; 83880; 84132; 84484; 85025; 85347; 85610; 93005; 93458; 94760; 96361; 96365; 96372; 96374; 96375; 99285; C1725; C1893; C9600; J1644; J1650; J2250; J2270; J2405; J3010; J3475; J7040; J7512; Q9967; U0003

== ENCOUNTER 2021-07-05 12:06 | Inpatient (IN) | payer OTHER ==
[2021-07-02 13:39] LABS: Hematocrit 31.8 % (36.0-45.0); Lymphocytes % 25.2 % (15.3-44.8); MPV 8.5 fL (7.6-11.3); RBC Red Blood Cell Count 3.98 M/uL (3.86-4.86)
[2021-07-02 13:47] LABS: Protime INR 1.02
[2021-07-02 13:50] LABS: Potassium 3.7 mmol/L (3.5-5.1)
--- NOTE | 2021-07-03 11:18 | EKG ---
Test Date: 2021-07-02 Test Time: 13:16:47 Operations Representative: ROSE MARY MEASUREMENT RESULTS: Intervals: Rate: 93 IL: 164 QRSD: 68 QT: 362 QTc: 450 [place]: P: 48 IL: 164 QRS: 1 T: 93 INTERPRETIVE STATEMENTS: Normal sinus rhythm Low voltage QRS T wave abnormality, consider lateral ischemia Abnormal ECG Compared to ECG 05/29/2021 07:14:00 Low QRS voltage now present T-wave abnormality now present Possible ischemia now present Electronically Signed On 07-03-21 11:14:20 POULTRY PICKER by Driss Maradiaga
[~2021-07-05 12:06] MED LIST: HEPA 1000U/500MLS 2,000 UNIT/1,000 ML BAG IV ONE
[2021-07-05] MEDS ORDERED: NA CHLORIDE 0.9% 0 ML ONE (12:12)
[2021-07-05] MEDS ORDERED: NA CHLORIDE 0.9% 500 ML ONE (12:15)
[2021-07-05] MEDS ORDERED: VERAPAMIL HCL 10 MG/4 ML VIAL IV ONE (12:47)
[2021-07-05] MEDS ORDERED: MIDAZOLAM HCL 2 MG/2 ML INJ ONE ×2 (12:47→13:29)
[2021-07-05] MEDS ORDERED: HEPARIN 5000 UNIT/ML 1 ML VIAL ONE (12:47)
[2021-07-05] MEDS ORDERED: FENTANYL CITR 100 MCG/2 ML ONE (12:48)
[2021-07-05] MEDS ORDERED: ATROPINE SULF 1 MG/10 ML SYR IV ONE (12:48)
[2021-07-05] MEDS ORDERED: NITROGLYCERIN 100 MCG/ML SYR (for cath lab use only) IV ONE (12:49)
[2021-07-05] MEDS ORDERED: CLOPIDOGREL 75 MG TABLET ONE (12:57)
[2021-07-05] MEDS ORDERED: LIDOCAINE 1% 20 ML MDV ONE (13:31)
--- NOTE | 2021-07-05 14:38 | OP ---
Date of Procedure: 07/05/2021 Surgeon: ALPESH SCANLON Procedure Performed: Failed attempt of PCI of RCA due to access complication. Description Of Procedure: After risks, benefits, and alternatives were explained, the patient agreed to the procedure and signed informed consent, and the patient was brought into the cardiac catheteri zation laboratory, prepped and draped in the usual sterile fashion. Then, we gave Versed and fentany l to achieve adequate moderate sedation. Then, we accessed right radial artery using pediatric micro puncture kit and placed a 6-[place] Slender sheath; however, could not get the guide up due to signifi cant spasm, so I decided to abort and switch to right femoral access and using ultrasound guidance, t he artery was accessed; however, the wire could not go through and the patient developed a moderate-s ize hematoma immediately after the stick, so decided to abort the procedure and held manual pressure for 30 minutes to control the bleeding in the groin. We will plan to postpone the elective PCI to a later time due to the groin hematoma. She is going to require a large amount of heparin during the p rocedure, which will increase the risk of significant bleed from the site of hematoma. /GUANACOL Voice ID: [id number] Report ID: [id number]
[2021-07-05] MEDS ORDERED: HYDROCODONE/APAP 5/325 MG TAB ONE (15:13)
[2021-07-05] MEDS ORDERED: HYDRALAZINE HCL 20 MG/ML VIAL ONE (15:14)
--- NOTE | 2021-07-05 18:06 | RAD REPORT ---
EXAM DESCRIPTION: CT - Abdomen Pelvis Wo Contrast - 07/05/2021 5:33 pm CLINICAL HISTORY: retained hemotoma Abdominal and pelvic pain, recent catheterization procedure COMPARISON: Chest Abdomen Pelvis W Cont dated 05/25/2021 TECHNIQUE: Axial [address] imaging of the abdomen was performed followed by axial 3 mill imeter thick images of the pelvis and upper thighs. No IV contrast was administered. No oral contra st administered. Sagittal and coronal reconstruction images were generated and reviewed. All CT scans are performed using dose optimization technique as appropriate and may include automated exposure control or mA/KV adjustment according to patient size. FINDINGS: No suspicious findings in the lung bases. Elevation of the left hemidiaphragm noted. No ca rdiomegaly or pericardial effusion. Coronary artery calcifications are present. The liver, spleen, and pancreas show no suspicious findings for non IV contrast imaging. Cholecystect terra clips are present. No abnormal biliary tree dilatation. No hydronephrosis or suspicious renal mass. Isodense masses and pyelonephritis are not excluded on a non IV contrast study. No adrenal abnormality. Partially filled urinary bladder shows no suspicious f indings. Atrophic uterus is seen. No ovarian abnormality. No dilated bowel loops or bowel wall thickening. No free air or pneumatosis. Trace amount of fluid is present in the cul de sac. No omental thickening or hernia. Several small round soft tissue attenuat ion foci in the subcutaneous fat of the mid abdomen noted and presumed to be results of prior medicat ion injections. Disc and bone degenerative changes are present. Dense vascular calcifications are present without ane urysm or centrally displaced calcifications. In the inferior right growing and anterior upper right thigh there is a 6 cm CC x 6 cm TR x 3.5 cm AP hematoma. This is more liquid in appearance anteriorly indicating partial breakdown of the hemorrhag ic material. Along the posterior inferior margin of the hematoma there is an additional hematoma is c rescent-shaped measuring 5 cm CC x 5 cm TR x 1 cm AP. A few additional small rounded areas of hematom a are present along the superior margin of the primary hematoma. There is bruising and stranding from hemorrhagic material throughout the deep subcutaneous fatty tissues of the right groin and upper rig ht thigh. The strandy hemorrhagic material extends to the mid thigh level but no additional site of f ocal hematoma present. There is no extension of hematoma into the retroperitoneal space of the pelvis or into the perineum. Exam sensitivity is decreased when no IV contrast is administered. IMPRESSION: A 6 x 6 x 3.5 cm hematoma is present in the deep soft tissues of the lower right groin a nd upper thigh with a crescent-shaped 5 x 5 x 1 cm hematoma along the posteroinferior margin. Bruising and hemorrhagic stranding is present from the groin to the anterior midthigh with no additio nal measurable hematomas. No retroperitoneal extension of the hemorrhage and no extension into the fatty tissues the perineum.
[2021-07-05] MEDS ORDERED: MORPHINE 2 MG/ML SYR ONE (18:59)
[2021-07-05] MEDS ORDERED: MORPHINE 2 MG/ML SYR IV ONE (19:00)
--- NOTE | 2021-07-05 19:01 | P.HP ---
Certification for Inpatient Patient admitted to: Observation With expected LOS: <2 Midnights Patient will require the following post-hospital care: None Practitioner: I am a practitioner with admitting privileges, knowledge of patient current condition, hospital course, and medical plan of care. Services: Services provided to patient in accordance with Admission requirements found in Title 42 Section 412.3 of the Code of Federal Regulations Patient History Date of Service: 07/05/21 Primary Care Provider: Dr. Santana Reason for admission: Right groin hematoma History of Present Illness: 55-year-old female with history of diabetes mellitus type 2insulin- dependent, hypertension, hyperlipidemia, CAD and anxiety was brought to the [facility] for scheduled intervention, cardiology was unable to access right radial artery secondary to spasming of the vessel, attempted access to the right groin but patient experienced significant hematoma immediately after access to the right femoral artery. Procedure was abandoned and pressure was applied to the site. Direct pressure was held for 30 to 45 minutes after which patient had a CT scan which demonstrated 6 x 6 x 3.5 cm hematoma present in the deep soft tissues of the right groin and upper thigh with crescent-shaped 5 x 5 x 1 cm hematoma along the posterior inferior margin no retroperitoneal extension of the hemorrhage and no extension into the fatty tissues of the peritoneum. Patient still in significant pain and moderate swelling to the right groin area, sampling expert wishes to admit to the hospital service under observation to closely monitor throughout the evening. Allergies Penicillins Allergy (Verified 07/02/21 12:55) Shortness of breath Home Medications: Duloxetine HCl [Cymbalta] 60 mg PO BID 01/13/18 Insulin Aspart [Novolog Flexpen] 10 units SQ SEECOM 01/13/18 Insulin Glargine,Hum.rec.anlog [Basaglar Kwikpen U-100] 32 unit SQ DAILY 01/13/18 Metformin HCl 1,000 mg PO BID 01/13/18 Rosuvastatin [Crestor*] 20 mg PO DAILY 01/13/18 Topiramate 100 mg PO BID 01/13/18 carvediloL [Carvedilol] 25 mg PO BID 01/13/18 cloNIDine HCL [Catapres] 0.3 mg PO TID 01/13/18 Aspirin Chewable [Aspirin Chewable*] 81 mg PO DAILY #90 tab.chew 01/16/18 Cyclobenzaprine [Flexeril*] 10 mg PO DAILY 05/15/21 traMADol HCL [Ultram*] 50 mg PO BEDTIME PRN 05/15/21 Colchicine [Colcrys *] 0.6 mg PO BID #10 tab 05/17/21 Methylprednisolone [Medrol dosepack] 4 mg PO SEECOM 05/25/21 Hydrocodone Bit/Acetaminophen [Hydrocodon-Acetaminophn 10-325] 1 tab PO Q6H PRN 05/26/21 Aspirin [Children's Aspirin] 81 mg PO DAILY #12 tab.chew 05/28/21 Atorvastatin Calcium [Lipitor] 40 mg PO BEDTIME #30 tab 05/28/21 Clopidogrel Bisulfate [Plavix] 75 mg PO DAILY #30 tablet 05/28/21 - Past Medical/Surgical History Diabetic: Yes -: HTN -: Diabetes mellitus type 2insulin-dependent -: Chronic back Pain -: Hyperlipidemia -: Anxiety -: Obesity -: migranes -: CAD -: -: cholecystectomy Psychosocial/ Personal History: Patient lives at home with family - Family History Mother -: Hypertension, Diabetes Father -: Heart disease Brother -: Heart disease, Hypertension, Diabetes - Social History Smoking Status: Never smoker Alcohol use: No CD- Drugs: No Caffeine use: Yes Place of Residence: Home Review of Systems 10-point ROS is otherwise unremarkable Musculoskeletal: Back Pain, Other (Right groin pain, swelling) Physical Examination - Vital Signs Temperature: 97.5 F Blood Pressure: 156/80 Pulse: 84 Respirations: 16 - Physical Exam General: Alert, In no apparent distress, Oriented x3 HEENT: Atraumatic, PERRLA, Mucous membr. moist/pink, EOMI, Sclerae nonicteric Neck: Supple, 2+ carotid pulse no bruit, No LAD, Without JVD or thyroid abnormality Respiratory: Clear to auscultation bilaterally, Normal air movement Cardiovascular: Regular rate/rhythm, Normal S1 S2 Gastrointestinal: Normal bowel sounds, No tenderness Musculoskeletal: No tenderness, Other (Moderate swelling to the right groin, compartments are soft pulses intact distally no paresthesias) Integumentary: No rashes Neurological: Normal gait, Normal speech, Normal strength at 5/5 x4 extr, Normal tone, Normal affect Lymphatics: No axilla or inguinal lymphadenopathy Assessment and Plan - Plan Assessment: Right groin hematoma S/P aborted heart catheterization attempt with history of CAD Diabetes mellitus type 2insulin-dependent Hypertension Hyperlipidemia Anxiety Migraines Plan: Right groin hematoma S/P aborted heart catheterization attempt with history of CAD: We will monitor closely throughout the evening including neurovascular assessments with monitoring of distal pulses. Compartments are soft at this time no signs of compartment syndrome, paresthesias. Will provide medication as needed for pain. Dissipate discharge in the morning. Diabetes mellitus type 2insulin-dependent: ACH S Accu-Chek, sliding scale insulin therapy. Patient takes Basaglar 32 units daily in addition to NovoLog 70/30 3 times daily. Moderate sliding scale. Hypertension: Home medications continued Hyperlipidemia: Home medications continued Anxiety: Provide medication as needed Migraines: Have continued Topamax DVT PPX: Lovenox Code status: Full Discharge Plan: Home Plan to discharge in: 24 Hours - Advance Directives Does patient have a Living Will: No Does patient have a Durable POA for Healthcare: No - Code Status/Comfort Care Code Status Assessed: Yes (Full code) Critical Care: No Time Spent Managing Pts Care (In Minutes): 55
[2021-07-05 20:11] VITALS: BMI 31.7
[2021-07-05] MEDS ORDERED: ACETAMINOPHEN 500 MG TAB PO PRN (20:48)
[2021-07-05] MEDS ORDERED: ONDANSETRON 4 MG/2 ML VIAL IV PRN (20:48)
[2021-07-05] MEDS: INSULIN -REGULAR HUMAN 50 UNIT/0.5 ML ML SQ SCH (21:00)
[2021-07-05] MEDS: HYDROCODONE/APAP 7.5/325 MG TAB PO PRN (22:02)
[2021-07-05] MEDS: ROSUVASTATIN 10 MG TAB PO SCH (22:18)
[2021-07-05] MEDS: TOPIRAMATE 100 MG TAB PO SCH (22:18)
[2021-07-05] MEDS: CLONIDINE HCL 0.3 MG TAB PO SCH (22:18)
[2021-07-05] MEDS: CYCLOBENZAPRINE 10 MG TAB PO PRN (22:19)
[2021-07-06] MEDS: carvediloL 25 MG TAB PO SCH ×2 (05:21→18:00)
[2021-07-06 05:58] LABS: Absolute Lymphocytes (CBC) 2.8 K/uL (0.7-4.9); Hematocrit 26.6 % (36.0-45.0); Lymphocytes % 27.7 % (15.3-44.8); MPV 9.1 fL (7.6-11.3); RBC Red Blood Cell Count 3.31 M/uL (3.86-4.86)
[2021-07-06 06:18] LABS: Albumin 2.6 g/dL (3.4-5.0); Bilirubin Total 0.2 mg/dL (0.2-1.0); Potassium 3.4 mmol/L (3.5-5.1); Protein, Total 6.1 g/dL (6.4-8.2)
[2021-07-06] MEDS: INSULIN -REGULAR HUMAN 50 UNIT/0.5 ML ML SQ SCH ×4 (08:45→20:46)
[2021-07-06] MEDS ORDERED: ENOXAPARIN 40 MG/0.4 ML SQ SCH (09:00)
[2021-07-06] MEDS ORDERED: POTASSIUM CL SA 10 MEQ TAB PO ONE (09:00)
[2021-07-06] MEDS: CLONIDINE HCL 0.3 MG TAB PO SCH ×3 (09:45→20:39)
[2021-07-06] MEDS: TOPIRAMATE 100 MG TAB PO SCH ×2 (09:45→20:38)
[2021-07-06] MEDS: MORPHINE 2 MG/ML SYR IV PRN ×2 (10:39→17:17)
[2021-07-06] MEDS: HYDROCODONE/APAP 7.5/325 MG TAB PO PRN (13:05)
--- OUTSIDE RECORDS SUMMARY | 2021-07-06 14:05 | XMS REPORT | Continuity of Care Document ---
:1965 Author Organization [facility] t Address [address] [place] [address] Care Team Providers Name Role Phone Irish [...] lumbar lumbar 00:00: [place] facet facet 00 [facility] joint joint Branch Osteoarthr Osteoarthr Disease Active U nivers itis of itis of 9-13 ity of right knee [place] [facility] Branch Osteoarthr Osteoarthr Disease Active U nivers itis of itis of 6-28 ity of both both 00:00: [place] shoulders shoulders 00 [facility] grant Branch Arthritis Arthritis Disease Active Uni vers of right of right 5-03 ity of knee knee 00:00: [place] 00 [facility] Branch Drug-induc Drug-induc Disease Active U xi [...] 00:00: [place] involving involving 00 Medi grant [place] Branch coronary coronary artery of artery of [place] heart heart without without angina angina pectoris [...] of SARS-CoV-2 [place] [facility] (event) Branch History [facility] University o f Alcohol Frequency [place] [facility] edical [facility] History Critical access hospital o f Alcohol Std [place] [facility] Drinks Branch History [facility] University o f Alcohol Binge [place] [facility] al [facility] Alcohol intake 2021-04-24 2021-04-24 Current drinker Unive rsity of 00:00:00 00:00:00 of alcohol [place] [facility] (finding) Branch Alcohol Comment 2020-10-02 2020-10-02 rare Universit y of 00:00:00 00:00:00 [place] [facility] History SDOH 2019-05-27 2019-05-27 3 University o f Financial 00:00:00 00:00:00 [place] [facility] History SDME Food 2019-05-27 2019-05-27 1 Univers ity of Worry 00:00:00 00:00:00 [place] [facility] History SDOH Food 2019-05-27 2019-05-27 1 Univers ity of Scarcity 00:00:00 00:00:00 [place] [facility] History [facility] 2019-05-27 2019-05-27 2 University o f Transport Med 00:00:00 00:00:00 [place] [facility] History [facility] 2019-05-27 2019-05-27 2 University o f Transport Non-Med 00:00:00 00:00:00 [place] [facility] edical Branch Education 2019-05-26 2019-05-26 21 [facility] 00:00:00 00:00:00 [facility] Tobacco use and 2017-03-02 2017-03-02 Never used Universit y of exposure 00:00:00 00:00:00 [facility] Sex [birth year] At [birth year] Universit y of 00:00:00 00:00:00 [facility] Smoking Status Start Date Stop Date Source Never smoker [facility] Medications Ordered Filled Start Stop Current Ordering Indication Dosage Frequency Signature Comments Components Source Medication Medication Date Date Medication? Clinician (SIG) Name Name cyclobenzap 2020-06 Yes 10mg Take 10 mg Univers rine 10 mg 0-26 by mouth ity o f tablet 13:08: daily. [address] rosuvastati 2020-06 Yes 20mg Take 20 mg Univers n 20 mg 0-26 by mouth ity of tablet 13:08: at [place] [address] bedtime. [facility] INSULIN 2020-06- No inject Univers GLARGINE,HU 0-26 10-26 under the it y of M.REC.ANLOG 13:08: [place] (TOUJE[place] 14 :00 [facility] INSULIN 2020-06- No inject Univers GLARGINE,HU 0-26 10-26 under the it y of M.REC.ANLOG 13:08: 00[place] ([place] 08 :00 [facility] Insulin Yes Basaglar Univer s Glargine [...] 00 :00 daily. Medical Branch traMADol Yes [id number] 50mg Take 1 Univers (ULTRAM) 50 7-19 [id number] tablet by i ty of mg tablet 00:00: mouth [place] 00 every 8 Medical (eight) Branch hours as needed for Pain (scale 4-6). Albuterol Albuterol Yes Na Santana [address] [facility] Sulfate Sulfate 7-10 needed [facility] albuterol 2020- No [id number] 2{puff} Inhale 2 Univers (PROAIR 03-02 10-26 [...] No 1{tbl} Take 1 U nivers acetaminoph 07-18- tablet by it y of en-caff 00:00: 00:00 mouth [place] 50-325-40 00 :00 every 4 Medical mg tablet (four) Branch hours as needed for Headache. ALPRAZolam 2020- No .25mg Take 0.25 Univers (XANAX) 1-11 10-26 mg by ity of 0.25 mg 00:00: 00:00 mouth 2 [place] tablet 00 :00 (two) Medical times Branch daily. Prasugrel Prasugrel Yes Na [place]ana as CH [...] THREE l TIMES Outpati DAILY ent Clinics [place] Pag[place] Yes Na Santana [address] [facility] Basaglar Basaglar Yes Na Santana [...] Immunizations Ordered Filled Immunization Date Status Comments [facility] [place] [facility] e Immunization Name Name SARS-COV-2 COVID-19 2021-01-31 Completed Unive rsity of PFIZER VACCINE 00:00:00 [facility] Afluria single dose Afluria single dose 2019-05-[address] [facility]patient [facility] Vital Signs Vital Name Observation Time Observation Value Comments Source Systolic blood 2021-04-24 18:09:00 170 mm[Hg] Univer sity of pressure [facility] Diastolic blood 2021-04-24 18:09:00 89 mm[Hg] Unive rsity of pressure [facility] Heart rate 2021-04-24 18:08:00 98 /min [facility] Body temperature 2021-04-24 18:08:00 36.61 Juju [facility] Respiratory rate 2021-04-24 18:08:00 19 /min [facility] Body height 2021-04-24 18:08:00 172.7 cm [facility] Body weight 2021-04-24 18:08:00 98.793 kg [facility] BMI 2021-04-24 18:08:00 33.12 kg/m2 [facility] Oxygen saturation in 2021-04-24 18:08:00 100 /min [facility] blood by [facility] Pulse oximetry Branch Procedures This patient has no known procedures. Encounters Start End Encounter Admission Attending Care Care Encounter Source Date/Time Date/Time Type Type Clinicians Facility Department ID 2021-06-18 2021-06-18 ambulatory [facility] [id number] [facility] 2021-06-01 2021-06-01 ambulatory [facility] [id number] [facility] 2021-05-31 2021-05-31 ambulatory [facility] [id number] [facility] 2021-05-29 2021-05-29 ambulatory [facility] [id number] [facility] 2021-05-22 2021-05-22 ambulatory [facility] [id number] [facility] 2021-05-08 2021-05-08 ambulatory [facility] [id number] [facility] 2021-04-24 2021-04-24 Office Puneet Mauro [facility] [id number] Univers 12:59:20 17:02:56 Visit Health [id number] it y of Clear [id number] Lebron Campos [id number] [address] Office Building 2021-04-24 2021-04-24 Outpatient Rafael MAURO PUNEET [facility] [id number] Univers 13:00:00 13:00:00 [id number] ity [facility] 2021-04-24 2021-04-24 Outpatient Rafael MAURO PUNEET [facility] [id number] Univers 13:00:00 13:00:00 ity [facility] 2021-03-20 2021-03-20 Outpatient Rafael MAURO PUNEET [facility] [id number] Univers 13:45:00 13:45:00 [id number] ity [facility] 2021-03-20 2021-03-20 Outpatient Rafael MAURO PUNEET [facility] [id number] Univers 13:45:00 13:45:00 ity [facility] 2021-03-06 2021-03-06 Outpatient R ZUNILDA PUNETE [facility] [id number] Univers 13:00:00 13:00:00 [id number] ity [facility] 2021-03-06 2021-03-06 Outpatient PUNEET ORTEGA [facility] [id number] Univers 13:00:00 13:00:00 ity [facility] 2021-02-20 2021-02-20 Outpatient PUNEET ORTEGA [facility] [id number] Univers 14:30:00 14:30:00 [id number] ity [facility] 2021-02-20 2021-02-20 Outpatient R PUNEET MAURO [facility] [id number] Univers 14:30:00 14:30:00 ity [facility] 2021-02-16 2021-02-16 Outpatient Rafael CORDOVA [facility] [id number] Univers 09:00:00 09:00:00 LINDSAY [id number] ity [facility] 2021-02-16 2021-02-16 Outpatient Rafael CORDOVA [facility] [id number] Univers 09:00:00 09:00:00 LINDSAY ity [facility] 2021-01-31 2021-01-31 Outpatient R ZUNILDAPUNEET [facility] [id number] Univers 09:00:00 09:00:00 [id number] ity [facility] 2021-01-31 2021-01-31 Outpatient R PUNEET MAURO [facility] [id number] Univers 00:00:00 00:00:00 ity [facility] 2021-01-23 2021-01-23 Outpatient R UZNILDAPUNEET [facility] [id number] Univers 14:00:00 14:00:00 [id number] ity [facility] 2021-01-23 2021-01-23 Outpatient R ZUNILDAPUNEET [facility] [id number] Univers 14:00:00 14:00:00 ity [facility] 2021-01-12 2021-01-12 Outpatient R LORENA TEE [facility] [id number] Univers 14:20:00 14:20:00 LORENA TEE [id number] [facility] 2021-01-12 2021-01-12 Outpatient R LORENA TEE [facility] [id number] Univers 14:20:00 14:20:00 LORENA TEE [facility] 2021-01-03 2021-01-03 Outpatient [facility]C [facility] [id number] [facility] Clinics 2021-01-02 2021-01-02 Outpatient R ZUNILDA PUNEET [facility] [id number] Univers 11:00:00 11:00:00 [id number] [facility] 2021-01-02 2021-01-02 Outpatient R ZUNILDA PUNEET [facility] [id number] Univers 11:00:00 11:00:00 ity [facility] 2020-12-21 2020-12-21 Outpatient R RADIOLOGY [facility] [id number] Univers 16:30:00 16:30:00 [id number] [facility] 2020-12-21 2020-12-21 Outpatient R RADIOLOGY [facility] [id number] Univers 00:00:00 00:00:00 ity [facility] 2020-12-14 2020-12-14 Outpatient [facility]MLC [facility] [id number] [facility] 2020-12-13 2020-12-13 Outpatient [facility]MLC [facility] [id number] [facility] 2020-12-12 2020-12-12 Outpatient Rafael MAURO PUNEET [facility] [id number] Univers 11:00:00 11:00:00 [id number] [facility] 2020-12-12 2020-12-12 Outpatient Rafael MAUROPUNEET [facility] [id number] Univers 11:00:00 11:00:00 [facility] 2020-11-22 2020-11-22 Outpatient [facility]MLC [facility] [id number] [facility] 2020-11-14 2020-11-14 Outpatient Rafael MAURO PUNEET [facility] [id number] Univers 09:30:00 09:30:00 [id number] [facility] 2020-11-14 2020-11-14 Outpatient Rafael MAURO PUNEET [facility] [id number] Univers 09:30:00 09:30:00 [facility] 2020-10-30 2020-10-30 Outpatient Rafael CALIXTO [facility] [id number] Univers 09:30:00 09:30:00 NATHAN [id number] [facility] 2020-10-30 2020-10-30 Outpatient Rafael CALIXTO [facility] [id number] Univers 09:30:00 09:30:00 NATHAN [facility] 2020-10-02 2020-10-02 Outpatient Rafael CALIXTO [facility] [id number] Univers 09:30:00 09:30:00 NATHAN [id number] [facility] 2020-10-02 2020-10-02 Outpatient Rafael CALIXTO [facility] [id number] Univers 09:30:00 09:30:00 NATHAN [facility] 2020-09-14 2020-09-14 Outpatient Rafael CALIXTO [facility] [id number] Univers 14:45:00 14:45:00 NTAHAN [id number] [facility] 2020-09-14 2020-09-14 Outpatient Rafael CALIXTO [facility] [id number] Univers 14:45:00 14:45:00 NATHAN [facility] 2020-07-12 2020-07-12 Outpatient [facility]MLC [facility] [id number] [facility] 2020-06-26 2020-06-26 Outpatient [facility]MLC [facility] [id number] [facility] 2020-06-09 2020-06-09 Outpatient [facility]MLC [facility] [id number] [facility] 2020-06-02 2020-06-02 Outpatient [facility]MLC [facility] [id number] [facility] 2020-02-25 2020-02-25 [facility] [id number] [facility] 16:20:00 16:20:00 t [employer] - [facility] l Medicine Outpati ent Clinics 2020-02-18 2020-02-18 [facility] [id number] [facility] 09:04:00 09:04:00 t [employer]boy [facility] - [facility] Medicine Outpati ent Clinics 2020-01-26 2020-01-26 [facility] [id number] [facility] 11:20:00 11:20:00 t Appboy s - [facility] Medicine Outpati ent Clinics 2019-11-15 2019-11-15 [facility] [id number] [facility] 13:40:00 13:40:00 t [employer]boy [employer] - [facility] l Medicine Outpati ent Clinics 2019-11-08 2019-11-08 [facility] [id number] 09:46:00 09:46:00 [place] [employer] [facility] Medicine l Medicine Outpati ent Clinics 2019-10-26 2019-10-26 [facility] [id number] 16:29:00 16:29:00 [place] [employer] [facility] Medicine l Medicine Outpati ent Clinics 2019-10-13 2019-10-13 [facility] [id number] [facility] 10:00:00 10:00:00 [place] [employer] [facility] [employer] [facility] Medicine l Medicine Outpati ent Clinics 2019-07-26 2019-07-26 [facility] [id number] [facility] 10:32:00 10:32:00 t [employer] [facility] Medicine Outpati ent Clinics 2019-07-26 2019-07-26 [facility] [id number] [facility] 09:41:00 09:41:00 t [employer] [facility] l Medicine Outpati ent Clinics 2019-06-10 2019-06-10 [facility] [id number] [facility] [facility] 16:53:00 16:53:[address] [employer] [facility] Medicine l Medicine Outpati ent Clinics 2019-05-03 2019-05-03 [facility] [id number] [facility] 14:00:00 14:00:[address] [employer] [facility] Medicine l Medicine Outpati ent Clinics 2019-04-08 2019-04-08 [facility] [id number] 16:06:00 16:06:[address] [employer] [facility] Medicine l Medicine Outpati ent Clinics 2019-02-24 2019-02-24 [facility] [id number] 11:34:00 11:34:00 [place] [employer] [facility] Medicine l Medicine Outpati ent Clinics 2019-01-16 2019-01-16 [facility] [id number] 13:30:00 13:30:00 t Urgent Ur[facility] L [facility] l Outpati ent Clinics 2019-01-11 2019-01-11 [facility] [id number] 11:00:00 11:00:00 t Urgent Ur[facility] L [facility] l Outpati ent Clinics 2018-09-04 2018-09-04 [facility] [id number] 11:00:00 11:00:00 t [employer] [facility] Medicine Outpati ent Clinics 2018-02-02 2018-02-02 [facility] [id number] 11:15:00 11:15:00 [place] [employer] [facility] Medicine Outpati ent Clinics 2018-01-19 2018-01-19 [facility] [id number] 10:36:00 10:36:00 t [employer] [facility] Medicine Outpati ent Clinics 2018-01-06 2018-01-06 [facility] [id number] 11:15:00 11:15:00 t [employer] [facility] Medicine Outpati ent Clinics 2018-01-05 2018-01-05 [facility] [id number] 11:13:00 11:13:00 t [employer] [facility] Medicine Outpati ent Clinics 2018-01-01 2018-01-01 [facility] [id number] 13:00:00 13:00:00 t Urgent Urgent [facility] Clinic l Outpati ent Clinics 2017-12-19 2017-12-19 [facility] [id number] 10:30:00 10:30:00 t [employer] [facility] Medicine Outpati ent Clinics 2017-09-18 2017-09-18 [facility] [id number] 09:00:00 09:00:00 t [employer] [facility] Medicine Outpati ent Clinics Results This patient has no known results.
--- NOTE | 2021-07-06 15:23 | P.PN ---
Date of Service: 07/06/21 Subjective: In the late morning, patient reported continuing moderate/severe pain in the right groin, feels like she is having pain in more areas of her leg Denies any worsening of the swelling Not ambulating secondary to the pain Pain medication has helped somewhat Reports some slight shortness of breath yesterday/last night, placed on oxygen for comfort Denies cough, denies fever, denies dysuria ROS: 10 point ROS as noted above, otherwise negative Physical exam GEN: Alert, oriented, appears uncomfortable HEENT: Normal conjunctiva, sclera anicteric CV: Regular rate and rhythm, no edema Pulm: Nonlabored respirations on 2L NC ABD: Soft, nontender, nondistended Integumentary: Right groin with pressure dressing intact, mild blood noted on dressing, right groin is soft, tender Neuro: Normal speech, normal affect Problem List Right groin hematoma S/P aborted heart catheterization attempt with history of CAD Diabetes mellitus type 2insulin-dependent Hypertension Hyperlipidemia Anxiety Migraines Right groin pain increasing per patient report Hemoglobin down from 10.5-> 8.6 This afternoon no significant new swelling noted, however patient was more tender in this area No overlying skin changes, no erythema, no drainage Pressure dressing without any change in blood noted on the dressing Continue pain medication as needed Cardiology initially evaluated patient this morning, recommended discharge home if stable/improved through the morning We will hold off on patient's discharge given worsening symptoms, continue to monitor, repeat hemoglobin later today Restart patient's home insulin, with sliding scale Continue home antihypertensives Will reevaluate again later this afternoon Code: Full Dispo: Worsening right groin pain and tenderness, hemoglobin decreased Anticipate DC home tomorrow if more stable/improved Time Spent Managing Pts Care (In Minutes): 35
--- NOTE | 2021-07-06 16:59 | RAD REPORT ---
EXAM DESCRIPTION: RAD - Chest Single View - 07/06/2021 4:24 pm CLINICAL HISTORY: shortness of breath COMPARISON: Chest Single View dated 05/25/2021; Chest Single View dated 05/22/2021; Chest Single Vie w dated 05/14/2021; Chest Single View dated 07/20/2019 FINDINGS: Lines: None. Lungs: No evidence of edema or pneumonia. Pleural: No significant pleural effusions or pneumothorax. Cardiac: The heart size is within normal limits. Bones: No acute fractures. Other: IMPRESSION: No acute cardiopulmonary disease.
[2021-07-06 18:06] LABS: MPV 8.6 fL (7.6-11.3); RBC Red Blood Cell Count 3.11 M/uL (3.86-4.86)
[2021-07-06] MEDS: CYCLOBENZAPRINE 10 MG TAB PO PRN (20:38)
[2021-07-06] MEDS: DIPHENHYDRAMINE 25 MG TAB/CAP PO PRN (20:39)
[2021-07-06] MEDS: ROSUVASTATIN 10 MG TAB PO SCH (20:40)
[2021-07-07] MEDS: MORPHINE 2 MG/ML SYR IV PRN (04:38)
[2021-07-07 06:17] LABS: Absolute Lymphocytes (CBC) 2.8 K/uL (0.7-4.9); Hematocrit 22.5 % (36.0-45.0); Lymphocytes % 30.4 % (15.3-44.8); MPV 8.8 fL (7.6-11.3); RBC Red Blood Cell Count 2.84 M/uL (3.86-4.86)
[2021-07-07] MEDS: carvediloL 25 MG TAB PO SCH ×2 (06:46→17:17)
[2021-07-07 06:47] LABS: Magnesium 1.7 mg/dL (1.8-2.4); Potassium 3.5 mmol/L (3.5-5.1)
[2021-07-07] MEDS: INSULIN -REGULAR HUMAN 50 UNIT/0.5 ML ML SQ SCH ×3 (08:20→16:35)
[2021-07-07] MEDS: TOPIRAMATE 100 MG TAB PO SCH (08:25)
[2021-07-07] MEDS: CLONIDINE HCL 0.3 MG TAB PO SCH ×2 (08:25→14:00)
[2021-07-07] MEDS ORDERED: POTASSIUM CL SA 10 MEQ TAB PO ONE (09:00)
[2021-07-07] MEDS ORDERED: NA CHLORIDE 0.9% 250 ML IV SCH (11:00)
[2021-07-07] MEDS: HYDROCODONE/APAP 7.5/325 MG TAB PO PRN (12:11)
[2021-07-07 12:33] VITALS: TEMP 97
[2021-07-07 16:08] VITALS: O2SAT 99
--- NOTE | 2021-07-07 16:27 | PN ---
Date of Progress Note: 07/06/2021 Ms. Nick underwent a catheterization by Dr. Palmer yesterday. She was a difficult catheterization. She could not tolerate a right wrist approach. She was switched to a groin stick and developed sig nificant hematoma without any retroperitoneal hematoma. On 07/06/2021, her hematoma has almost all r esolved. She still had some soreness, but had adequate pulses in the distal extremity. No specific complaint otherwise. We will continue to observe her, check another CBC. Case was discussed with Dr Sd Zaidi. If her hemoglobin goes below 8, will transfuse her. We will send her home after that. I w ill set up another catheterization in the near future by Dr. Palmer. АЛЕКСАНДР/SHON Voice ID: [id number] Report ID: [id number]
--- NOTE | 2021-07-07 16:47 | P.DS ---
Admission Date: 07/06/21 Discharge Date: 07/07/21 Primary Care Provider: Dr. Santana Disposition: ROUTINE DISCHARGE Discharge Condition: GOOD Reason for Admission: Right groin hematoma s/p femoral access Consultations: Cardiology - Dr. Palmer / Ashwini Procedures: CT abdomen/pelvis (07/05): IMPRESSION: A 6 x 6 x 3.5 cm hematoma is present in the deep soft tissues of the lower right groin and upper thigh with a crescent-shaped 5 x 5 x 1 cm hematoma along the posteroinferior margin. Bruising and hemorrhagic stranding is present from the groin to the anterior midthigh with no additional measurable hematomas. No retroperitoneal extension of the hemorrhage and no extension into the fatty tissues the perineum. CXR (07/06): No acute cardiopulmonary disease Problem List Right groin hematoma S/P aborted heart catheterization attempt with history of CAD acute blood loss anemia Diabetes mellitus type 2insulin-dependent Hypertension Hyperlipidemia Anxiety Migraines Brief History of Present Illness: 55-year-old female with history of diabetes mellitus type 2insulin- dependent, hypertension, hyperlipidemia, CAD and anxiety was brought to the Statistical Geneticist for scheduled intervention, cardiology was unable to access right radial artery secondary to spasming of the vessel, attempted access to the right groin but patient experienced significant hematoma immediately after access to the right femoral artery. Procedure was abandoned and pressure was applied to the site. Direct pressure was held for 30 to 45 minutes after which patient had a CT scan which demonstrated 6 x 6 x 3.5 cm hematoma present in the deep soft tissues of the right groin and upper thigh with crescent-shaped 5 x 5 x 1 cm hematoma along the posterior inferior margin no retroperitoneal extension of the hemorrhage and no extension into the fatty tissues of the peritoneum. 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 Hospital Course: Patient was monitored, she had some pain/discomfort of her right groin when ambulating. Her hemoglobin slightly down trended from 10.5 -> 8.6 -> 8.0 -> 7.6. She did not have any significant worsening of right groin swelling or pain. She reported pain improved. Vital signs remained stable. Cardiology was consulted, evaluated the patient, and deemed patient stable for discharge home, ok to resume home meds as previously prescribed, and follow up in office this coming week. On day of discharge patient was feeling ok, reported pain improved, no worsening of right groin swelling, ambulating with pain but without dizziness/lightheadedness. She was transfused 1u PRBC and discharged home Vital Signs/Physical Exam: Physical exam GEN: Alert, oriented, NAD HEENT: Normal conjunctiva, sclera anicteric CV: Regular rate and rhythm, no edema Pulm: Non-labored respirations on room air ABD: Soft, nontender, nondistended Integumentary: Right groin with pressure dressing intact, soft, mild ecchymosis Neuro: Normal speech, normal affect Temp Pulse Resp BP Pulse Ox 97.0 F 84 17 119/60 100 07/07/21 16:00 07/07/21 16:00 07/07/21 16:00 07/07/21 16:00 07/07/21 16:00 Laboratory Data at Discharge: WBC 9.30 K/uL (4.3-10.9) 07/07/21 05:27 Hgb 7.6 g/dL (12.0-15.0) L 07/07/21 05:27 Hct 22.5 % (36.0-45.0) L 07/07/21 05:27 Plt Count 219 K/uL (152-406) 07/07/21 05:27 PT 11.7 SECONDS (9.5-12.5) 07/02/21 13:24 INR 1.02 07/02/21 13:24 APTT 40.6 SECONDS (24.3-36.9) H 07/02/21 13:24 Sodium 141 mmol/L (136-145) 07/07/21 05:27 Potassium 3.5 mmol/L (3.5-5.1) 07/07/21 05:27 BUN 10 mg/dL (7-18) 07/07/21 05:27 Creatinine 0.69 mg/dL (0.55-1.3) 07/07/21 05:27 Glucose 169 mg/dL (74-106) H 07/07/21 05:27 Magnesium 1.7 mg/dL (1.8-2.4) L 07/07/21 05:27 Total Bilirubin 0.2 mg/dL (0.2-1.0) 07/06/21 05:22 AST 9 U/L (15-37) L 07/06/21 05:22 ALT 14 U/L (12-78) 07/06/21 05:22 Alkaline Phosphatase 135 U/L (45-117) H 07/06/21 05:22 Home Medications: Duloxetine HCl [Cymbalta] 60 mg PO BID 01/13/18 Insulin Aspart [Novolog Flexpen] 10 units SQ SEECOM 01/13/18 Insulin Glargine,Hum.rec.anlog [Basaglar Kwikpen U-100] 32 unit SQ DAILY 01/13/18 Metformin HCl 1,000 mg PO BID 01/13/18 Topiramate 100 mg PO BID 01/13/18 carvediloL [Carvedilol] 25 mg PO BID 01/13/18 cloNIDine HCL [Catapres] 0.3 mg PO TID 01/13/18 Cyclobenzaprine [Flexeril*] 10 mg PO DAILY 05/15/21 traMADol HCL [Ultram*] 50 mg PO BEDTIME PRN 05/15/21 Hydrocodone Bit/Acetaminophen [Hydrocodon-Acetaminophn 10-325] 1 tab PO Q6H PRN 05/26/21 Aspirin [Children's Aspirin] 81 mg PO DAILY #12 tab.chew 05/28/21 Atorvastatin Calcium [Lipitor] 40 mg PO BEDTIME #30 tab 05/28/21 Clopidogrel Bisulfate [Plavix] 75 mg PO DAILY #30 tablet 05/28/21 Time spent managing pt's care (in minutes): 45
[2021-07-07] MEDS: DIPHENHYDRAMINE 25 MG TAB/CAP PO PRN (18:36)
[2021-07-07 21:24] VITALS: BP 129/85
== END 2021-07-07 20:20 | disposition home or self-care (01) | DRG 920 ==
LOC: SUATTDRO 12:06 → CCL 12:06 → 2ND 12:56 → CCL 07-06 13:51 → 2ND 07-06 13:52
PROVIDERS: ADMIT Hospitalist; ATTEND Hospitalist
PROC: 30233N1 Transfusion of Nonautologous Red Blood Cells into Peripheral Vein, Percutaneous Approach (ICD-10-PCS; principal; 2021-07-07)
DX: I97.410 Intraoperative hemorrhage and hematoma of a circulatory system organ or structure complicating a cardiac catheterization (principal); D62 Acute posthemorrhagic anemia; Y65.8 Other specified misadventures during surgical and medical care; Y92.238 Other place in hospital as the place of occurrence of the external cause; E11.9 Type 2 diabetes mellitus without complications; I10 Essential (primary) hypertension; E78.5 Hyperlipidemia, unspecified; F41.9 Anxiety disorder, unspecified; G43.909 Migraine, unspecified, not intractable, without status migrainosus; Z20.822 Contact with and (suspected) exposure to COVID-19
CPT/HCPCS: 36415; 36430; 71045; 74150; 74176; 80048; 80053; 82947; 83735; 84132; 85025; 85027; 85610; 85730; 86850; 86900; 86901; 93005; C1893; J0360; J1644; J2250; J2270; J3010; J7040; J7050; P9016; U0002

== ENCOUNTER 2021-07-19 10:31 | Day surgery (SDC) | payer OTHER ==
[2021-07-16 14:26] LABS: Protime INR 1.09
--- NOTE | 2021-07-18 07:29 | EKG ---
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
[2021-07-19] MEDS ORDERED: NA CHLORIDE 0.9% 500 ML ONE (10:36)
[2021-07-19] MEDS ORDERED: LIDOCAINE 1% 20 ML MDV ONE (10:44)
[2021-07-19] MEDS ORDERED: HEPA 1000U/500MLS 2,000 UNIT/1,000 ML BAG IV ONE (10:44)
[2021-07-19] MEDS ORDERED: FENTANYL CITR 100 MCG/2 ML ONE (10:59)
[2021-07-19] MEDS ORDERED: HEPARIN 5000 UNIT/ML 1 ML VIAL ONE (11:00)
[2021-07-19] MEDS ORDERED: ATROPINE SULF 1 MG/10 ML SYR IV ONE (11:00)
[2021-07-19] MEDS ORDERED: MIDAZOLAM HCL 2 MG/2 ML INJ ONE ×2 (11:00→12:08)
[2021-07-19] MEDS ORDERED: VERAPAMIL HCL 10 MG/4 ML VIAL IV ONE (11:00)
[2021-07-19] MEDS ORDERED: NITROGLYCERIN 100 MCG/ML SYR (for cath lab use only) IV ONE (11:00)
[2021-07-19] MEDS ORDERED: NITROGLYCERIN/D5W 25 MG/250 ML BTL IV ONE (11:01)
[2021-07-19] MEDS ORDERED: HEPARIN 10,000 UNIT/10 ML VIAL IV ONE (11:46)
[2021-07-19] MEDS ORDERED: HEPA 1000U/500MLS 1,000 UNIT/500 ML BAG IV ONE (11:56)
[2021-07-19] MEDS ORDERED: CLOPIDOGREL 75 MG TABLET ONE (12:03)
[2021-07-19 16:56] VITALS: BP 141/74; O2SAT 99
--- NOTE | 2021-07-19 18:36 | OP ---
Date of Procedure: 07/19/2021 Surgeon: ALPESH SCANLON Procedures Performed: 1.Selective coronary angiogram. 2.Left heart catheterization. 3.PCI of severe ostial to proximal right posterior lateral branch using 2.5 x 16 mm Synergy drug-elu ting stent. 4.PCI of proximal RCA severe stenosis using 2.75 x 12 mm Synergy drug-eluting stent inflated to high pressure to a size of 3.0 mm. Complications: None. Bleeding: Less than 10 mL. Indications: Known significant coronary artery disease of the RCA. Access: Right femoral artery 6-Korean closed with StarClose. Anesthesia: The total sedation time was 40 minutes. Description Of Procedure: After risks, benefits, and alternatives were explained, the patient agreed to the procedure and signed informed consent. The patient was brought into the catheterization labo ratory, prepped and draped in usual sterile fashion. Then, we accessed the right femoral artery usin g ultrasound guidance and fluoroscopy and placed 6-Korean [place] sheath and then took a 6-Korean JR 4 guide into the aortic root, engaged the RCA. Gave systemic heparin to assure HCT level above 250 a nd then took 2 Run-Through wires, 1 placed into the PLB and 1 placed into the PDA and then the PLB se gretel disease which was 90% stenosis was pre-dilated and then placed 2.5 x 16 mm Synergy drug-eluting stent successfully and then pre-dilated the proximal RCA and then used a 2.75 x 12 mm Synergy drug-el uting stent and inflated to high pressure to a size of 3.0 mm. Then, the diagnostic catheter ___ the RCA after satisfactory angiogram. Then, the catheter was advanced over the wire into the LV. LVEDP was measured and pullback did not record any gradient and exchanged for 6-Korean JL4 catheter , engaged the left main, took standard views and evaluated the previous stent that was carefully sun nt. Then, we removed the catheter and the sheath, and StarClose was used for hemostasis that establi shed good hemostasis. Complications none. Conclusion: 1.Severe proximal ostial stenosis 70%, status post successful PCI as above. 2.Severe PLB stenosis 90%, status post successful PCI as above, 0% residual stenosis in both and JOSUE I-3 flow after PCI. 3.Patent left circumflex stent and no significant LAD disease. 4.Elevated LVEDP at 23 mmHg. Plan: Aspirin, Plavix, and statin and we will plan for adding low-dose diuretics as an outpatient. SR/MODL Voice ID: [id number] Report ID: [id number]
== END 2021-07-19 16:30 | disposition home or self-care (01) ==
LOC: CCL 10:31
PROVIDERS: ATTEND Internal Medicine
DX: I25.10 Atherosclerotic heart disease of native coronary artery without angina pectoris (principal); I10 Essential (primary) hypertension; E78.2 Mixed hyperlipidemia; E11.9 Type 2 diabetes mellitus without complications; F32.0 Major depressive disorder, single episode, mild; Z95.5 Presence of coronary angioplasty implant and graft; Z88.0 Allergy status to penicillin; Z20.822 Contact with and (suspected) exposure to COVID-19
CPT/HCPCS: 93005; 36415; 85610; 82947; 85730; 93458; U0003; C1893; C1725; C9601; C9600; J2250 ×2; J3010; J7040; J1644 ×2

== ENCOUNTER 2021-07-21 13:07 | Emergency (ER) | payer OTHER ==
--- OUTSIDE RECORDS SUMMARY | 2021-07-21 13:11 | XMS REPORT | Continuity of Care Document ---
:1965 Author Organization [facility] t Address [address] [place] [address] Care Team Providers Name Role Phone Irish [...] of 9-13 ity of lumbar lumbar 00:00: [place] facet facet 00 [facility] joint joint Branch Osteoarthr Osteoarthr Disease Active U nivers itis of itis of 9-13 ity of right [place] [facility] Branch Osteoarthr Osteoarthr Disease Active U nivers itis of itis of 6-28 ity of both both 00:00: [place] shoulders shoulders 00 [facility] grant Branch Arthritis Arthritis Disease Active Uni vers of right of right 5-03 ity of knee knee 00:00: [place] 00 [facility] Branch Drug-induc Drug-induc Disease Active U xi ed ed 5-03 ity of constipati constipati [place] Headache Headache Disease Active Unive rs 5-03 ity of 00:00: [place] [facility] Spasm of Spasm of Disease Active Unive rs back back 4-01 ity of muscles muscles 00:00: [place] [facility] Cervical Cervical Disease Active Unive rs radiculopa radiculopa 2-08 it y of thy thy 00:00: [place] [facility] Lumbar Lumbar Disease Active Univers radiculopa radiculopa 2-08 it y of thy thy 00:00: [place] [facility] Hypertensi Hypertensi Disease Active 2018-06 U xi ve urgency ve urgency 1-28 it y of 00:00: [place] [facility] IDDM IDDM Disease Active 2018-06 [...] 00:00: [place] involving involving 00 Medi grant [place] Branch coronary coronary artery of artery of [place] heart heart without without angina angina pectoris pectoris Chest pain Chest pain Disease Active 2018-06 U nivers 1-27 ity of 00:00: [place] [facility] Knee pain Knee pain Disease Active 2018-06 Uni vers 0-07 ity of 00:00: [place] [facility] Restless Restless Disease Active Unive rs legs legs 4-26 ity of 00:00: [place] 00 Medical Branch Anxiety Anxiety Disease Active 2019- Univers 2-01 ity of 00:00: [place] 00 Medical Branch Insomnia Insomnia Disease Active Unive rs 2-01 ity of 00:00: [place] 00 Medical Branch Spinal Spinal Disease Active [...] Exposure to Not sure University of SARS-CoV-2 [place] Medical (event) Branch History [facility] University o f Alcohol Frequency [place] M edical Branch History [facility] o f Alcohol Std [place] Medical Drinks Branch History [facility] University o f Alcohol Binge [place] [facility] al Branch Alcohol intake 2021-04-24 2021-04-24 Current drinker Unive rsity of 00:00:00 00:00:00 of alcohol [place] [facility] (finding) Branch Alcohol Comment 2020-10-02 2020-10-02 rare Universit y of 00:00:00 00:00:00 [place] [facility] History SDOH 2019-05-27 2019-05-27 3 University o f Financial 00:00:00 00:00:00 [place] [facility] History SDNV Food 2019-05-27 2019-05-27 1 Univers ity of Worry 00:00:00 00:00:00 [place] [facility] History SDOH Food 2019-05-27 2019-05-27 1 Univers ity of Scarcity 00:00:00 00:00:00 [place] [facility] History [facility] 2019-05-27 2019-05-27 2 University o f Transport Med 00:00:00 00:00:00 [place] Medic al Branch History [facility] 2019-05-27 2019-05-27 2 University o f Transport Non-Med 00:00:00 00:00:00 [facility] edical Branch Education 2019-05-26 2019-05-26 21 [facility] 00:00:00 00:00:00 [facility] Tobacco use and 2017-03-02 2017-03-02 Never used Universit y of exposure 00:00:00 00:00:00 [facility] Sex [birth year] At [birth year] Universit y of 00:00:00 00:00:00 [facility] Smoking Status Start Date Stop Date Source Never smoker [facility] Medications Ordered Filled Start Stop Current Ordering Indication Dosage Frequency Signature Comments Components Source Medication Medication Date Date Medication? Clinician (SIG) Name Name cyclobenzap 2020-06 Yes 10mg Take 10 mg Univers rine 10 mg 0-26 by mouth ity o f tablet 13:08: daily. [address] rosuvastati 2020-06 Yes 20mg Take 20 mg Univers n 20 mg 0-26 by mouth ity of tablet 13:08: at [place] [id number] bedtime. [facility] INSULIN 2020-06- No inject Univers GLARGINE,HU 0-26 10-26 under the it y of M.REC.ANLOG 13:08: 00[place]00 [place] (TOUJE[place] 14 :00 [facility] [place] INSULIN 2020-06- No inject Univers GLARGINE,HU 0-26 10-26 under the it y of M.REC.ANLOG 13:08: [place] ([place] 08 :00 [facility] Insulin Yes Basaglar Univer s Glargine 4-05 [...] under the ity of (NOVOLOG 10:16: skin. [place] PENFILL SC) 23 Medical Branch aspirin 81 [...] 00 :00 daily. Medical Branch traMADol Yes [id number] 50mg Take 1 Univers (ULTRAM) 50 7-19 [id number] tablet by i ty of mg tablet 00:00: mouth [place] 00 every 8 Medical (eight) Branch hours as needed for Pain (scale 4-6). Albuterol Albuterol Yes Na Santana [address] [facility] Sulfate Sulfate 7-10 [facility] albuterol 2020- No [id number] 2{puff} Inhale 2 Univers (PROAIR 03-02 10-26 [...] 00 :00 (two) Medical times Branch daily. Topamax Topamax Yes Na Santana 1 tablet [...] THREE l TIMES Outpati DAILY ent Clinics [place] Yes Na Santana [address] [facility] [...] TWICE l DAILY Outpati DIRECTED ent Clinics Immunizations Ordered Filled Immunization Date Status Comments [facility] e Immunization Name Name SARS-COV-2 COVID-19 2021-01-31 Completed Unive rsity of PFIZER VACCINE 00:00:00 [facility] [place] [facility] Afluria single dose Afluria single dose 2019-05-[address] [facility]00 [facility] Vital Signs Vital Name Observation Time Observation Value Comments Source Systolic blood 2021-04-24 18:09:00 170 mm[Hg] Univer sity of pressure [facility] Diastolic blood 2021-04-24 18:09:00 89 mm[Hg] Unive rsity of pressure [facility] Heart rate 2021-04-24 18:08:00 98 /min [facility] Body temperature 2021-04-24 18:08:00 36.61 Juju [facility] Respiratory rate 2021-04-24 18:08:00 19 /min [facility] Body height 2021-04-24 18:08:00 172.7 cm [facility] Body weight 2021-04-24 18:08:00 98.793 kg [facility] BMI 2021-04-24 18:08:00 33.12 kg/m2 [facility] Oxygen saturation in 2021-04-24 18:08:00 100 /min [facility] blood by [facility] Pulse oximetry Branch Procedures This patient has no known procedures. Encounters Start End Encounter Admission Attending Care Care Encounter Source Date/Time Date/Time Type Type Clinicians Facility Department ID 2021-07-11 2021-07-11 ambulatory [facility] [id number] [facility] 2021-06-18 2021-06-18 ambulatory [facility] [id number] [facility] 2021-06-01 2021-06-01 ambulatory [facility] [id number] [facility] 2021-05-31 2021-05-31 ambulatory [facility] [id number] [facility] 2021-05-29 2021-05-29 ambulatory [facility] [id number] [facility] 2021-05-22 2021-05-22 ambulatory [facility] [id number] [facility] 2021-05-08 2021-05-08 ambulatory [facility] [id number] [facility] 2021-04-24 2021-04-24 Office ZunildaPuneet [facility] [id number] Univers 12:59:20 17:02:56 Visit Health [id number] it y of Clear [id number] Lebron Campos [id number] [address] Office Building 2021-04-24 2021-04-24 Outpatient R ZUNILDA PUNEET [facility] [id number] Univers 13:00:00 13:00:00 [id number] ity [facility] 2021-04-24 2021-04-24 Outpatient R ZUNILDA PUNEET [facility] [id number] Univers 13:00:00 13:00:00 ity [facility] 2021-03-20 2021-03-20 Outpatient R ZUNILDA PUNEET [facility] [id number] Univers 13:45:00 13:45:00 [id number] ity [facility] 2021-03-20 2021-03-20 Outpatient R ZUNILDA PUNEET [facility] [id number] Univers 13:45:00 13:45:00 ity [facility] 2021-03-06 2021-03-06 Outpatient R ZUNILDA PUNEET [facility] [id number] Univers 13:00:00 13:00:00 [id number] [facility] [place] [facility]-06 2021-03-06 Outpatient R PUNEET MAURO [facility] [id number] Univers 13:00:00 13:00:00 ity [facility] 2021-02-20 2021-02-20 Outpatient R ZUNILDA PUNEET [facility] [id number] Univers 14:30:00 14:30:00 [id number] ity [facility] 2021-02-20 2021-02-20 Outpatient R ZUNILDA PUNEET [facility] [id number] Univers 14:30:00 14:30:00 ity [facility] 2021-02-16 2021-02-16 Outpatient R ART [facility] [id number] Univers 09:00:00 09:00:00 LINDSAY [id number] ity [facility] 2021-02-16 2021-02-16 Outpatient R ART [facility] [id number] Univers 09:00:00 09:00:00 [facility] [place] [facility]-01-31 2021-01-31 Outpatient R ZUNILDA PUNEET [facility] [id number] Univers 09:00:00 09:00:00 [id number] ity [facility] 2021-01-31 2021-01-31 Outpatient R ZUNILDA PUNEET [facility] [id number] Univers 00:00:00 00:00:00 ity [facility] 2021-01-23 2021-01-23 Outpatient R ZUNILDA PUNEET [facility] [id number] Univers 14:00:00 14:00:00 [id number] [facility] 2021-01-23 2021-01-23 Outpatient R ZUNILDA PUNEET [facility] [id number] Univers 14:00:00 14:00:00 [facility] 2021-01-12 2021-01-12 Outpatient LORENA PEREIRA [facility] [id number] Univers 14:20:00 14:20:00 LORENA TEE [id number] [facility] 2021-01-12 2021-01-12 Outpatient LORENA PEREIRA [facility] [id number] Univers 14:20:00 14:20:00 LORENA TEE [facility] 2021-01-03 2021-01-03 Outpatient [facility]C [facility] [id number] [facility] Shannon castillo Outpat[facility] ent Clinics 2021-01-02 2021-01-02 Outpatient R PUNEET MAURO [facility] [id number] Univers 11:00:00 11:00:00 [id number] [facility] 2021-01-02 2021-01-02 Outpatient R PUNEET MAURO [facility] [id number] Univers 11:00[facility] [place] [facility]21 2020-12-21 Outpatient R RADIOLOGY [facility] [id number] Univers 16:30:00 16:30:00 [id number] [facility] 2020-12-21 2020-12-21 Outpatient R RADIOLOGY [facility] [id number] Univers 00:00:00 00:00:00 [facility] 2020-12-14 2020-12-14 Outpatient [facility]MLC [facility] [id number] [facility] 2020-12-13 2020-12-13 Outpatient [facility]MLC [facility] [id number] [facility] 2020-12-12 2020-12-12 Outpatient R ZUNILDA PUNEET [facility] [id number] Univers 11:00:00 11:00:00 [id number] [facility] 2020-12-12 2020-12-12 Outpatient R ZUNILDAPUNEET [facility] [id number] Univers 11:00:00 11:00:00 [facility] 2020-11-22 2020-11-22 Outpatient [facility]C [facility] [id number] [facility] 2020-11-14 2020-11-14 Outpatient R ZUNILDA PUNEET [facility] [id number] Univers 09:30:00 09:30:00 [id number] [facility] 2020-11-14 2020-11-14 Outpatient R ZUNILDA PUNEET [facility] [id number] Univers 09:30:00 09:30:00 [facility] 2020-10-30 2020-10-30 Outpatient R MARILY [facility] [id number] Univers 09:30:00 09:30:00 NATHAN [id number] [facility] 2020-10-30 2020-10-30 Outpatient R MARILY [facility] [id number] Univers 09:30:00 09:30:00 NATHAN [facility] 2020-10-02 2020-10-02 Outpatient R MARILY [facility] [id number] Univers 09:30:00 09:30:00 NATHAN [id number] [facility] 2020-10-02 2020-10-02 Outpatient Rafael MARILY [facility] [id number] Univers 09:30:00 09:30:00 NATHAN [facility] 2020-09-14 2020-09-14 Outpatient Rafael MARILY [facility] [id number] Univers 14:45:00 14:45:00 NATHAN [id number] [facility] 2020-09-14 2020-09-14 Outpatient Rafael CLAIXTO [facility] [id number] Univers 14:45:00 14:45:00 NATHAN [facility] 2020-07-12 2020-07-12 Outpatient [facility]MLC [facility] [id number] [facility] 2020-06-26 2020-06-26 Outpatient [facility]MLC [facility] [id number] [facility] 2020-06-09 2020-06-09 Outpatient [facility]C [facility] [id number] [facility] 2020-06-02 2020-06-02 Outpatient [facility]MLC [facility] [id number] [facility] 2020-02-25 2020-02-25 [facility] [id number] [facility] 16:20:00 16:20:00 [place] apiOmat Luke [facility] - [facility] l Medicine Outpati ent Clinics 2020-02-18 2020-02-18 [facility] [id number] 09:04:00 09:04:00 t [place] 1Mind Luke s - [facility] l Medicine Outpati ent Clinics 2020-01-26 2020-01-26 [facility] [id number] [facility] 11:20:00 11:20:00 [place] BrandYourself s - Drive [facility] l Medicine Outpati ent Clinics 2019-11-15 2019-11-15 [facility] [id number] [facility] 13:40:00 13:40:00 [place] BrandYourself s - Drive [facility] Medicine l Medicine Outpati ent Clinics 2019-11-08 2019-11-08 [facility] [id number] 09:46:00 09:46:00 [place] BrandYourself s - Drive [facility] l Medicine Outpati ent Clinics 2019-10-26 2019-10-26 [facility] [id number] 16:29:00 16:29:00 [place] BrandYourself s - 1Mind [facility] l Medicine Outpati ent Clinics 2019-10-13 2019-10-13 [facility] [id number] 10:00:00 10:00:00 [place] BrandYourself s - 1Mind [facility] Medicine Outpati ent Clinics 2019-07-26 2019-07-26 [facility] [id number] [facility] 10:32:00 10:32:00 t DFine s doxIQ [facility] Medicine Outpati ent Clinics 2019-07-26 2019-07-26 [facility] [id number] 09:41:00 09:41:00 t DFine s doxIQ [facility] Medicine l Medicine Outpati ent Clinics 2019-06-10 2019-06-10 [facility] [id number] [facility] 16:53:00 16:53:00 t DFine s [employer] [facility] l Medicine Outpati ent Clinics 2019-05-03 2019-05-03 [facility] [id number] 14:00:00 14:00:00 [place] BrandYourself s [employer] [facility] Medicine Medicine Outpati ent Clinics 2019-04-08 2019-04-08 [facility] [id number] 16:06:00 16:06:00 [place] BrandYourself s - [employer] [facility] Medicine Outpati ent Clinics 2019-02-24 2019-02-24 [facility] [id number] 11:34:00 11:34:00 [place] BrandYourself s - 1Mind [facility] l Medicine Outpati ent Clinics 2019-01-16 2019-01-16 [facility] [id number] [facility] 13:30:00 13:30:00 [facility] l Outpati ent Clinics 2019-01-11 2019-01-11 [facility] [id number] 11:00:00 11:00:00 [facility] Clinic l Outpati ent Clinics 2018-09-04 2018-09-04 [facility] [id number] 11:00:00 11:00:00 [place] BrandYourself s [employer] [address] [facility] Medicine Outpati ent Clinics 2018-02-02 2018-02-02 [facility] [id number] 11:15:00 11:15:00 [place] Dinnr [facility] Medicine Outpati ent Clinics 2018-01-19 2018-01-19 [facility] [id number] 10:36:00 10:36:00 t Pharnext [facility] Medicine Outpati ent Clinics 2018-01-06 2018-01-06 [facility] [id number] [facility] 11:15:00 11:15:00 [place] Dinnr [facility] Medicine Outpati ent Clinics 2018-01-05 2018-01-05 [facility] [id number] 11:13:00 11:13:00 t Pharnext [facility] Medicine Outpati ent Clinics 2018-01-01 2018-01-01 [facility] [id number] [facility] 13:00:00 13:00:00 t [facility] Clinic l Outpati ent Clinics 2017-12-19 2017-12-19 [facility] [id number] 10:30:00 10:30:00 [place] Dinnr [facility] Medicine Outpati ent Clinics 2017-09-18 2017-09-18 [facility] [id number] 09:00:00 09:00:00 [place] Dinnr [facility] Medicine Outpati ent Clinics Results This patient has no known results.
[2021-07-21 13:54] LABS: Absolute Lymphocytes (CBC) 1.8 K/uL (0.7-4.9); Hematocrit 32.7 % (36.0-45.0); Lymphocytes % 22.7 % (15.3-44.8); MPV 9.2 fL (7.6-11.3)
[2021-07-21 14:01] LABS: Protime INR 1.15
--- NOTE | 2021-07-21 14:24 | RAD REPORT ---
EXAM DESCRIPTION: Deepthi Single View07/21/2021 2:03 pm CLINICAL HISTORY: Chest pain COMPARISON: July 06, 2021 FINDINGS: The lungs appear clear of acute infiltrate. Chronic elevation left hemidiaphragm. The heart is normal size IMPRESSION: No acute abnormalities displayed
[2021-07-21 14:33] LABS: Albumin 2.9 g/dL (3.4-5.0); Bilirubin Direct 0.1 mg/dL (0-0.2); Bilirubin Total 0.5 mg/dL (0.2-1.0); Protein, Total 6.8 g/dL (6.4-8.2); Troponin High Sensitivity 224.4 pg/mL (<58.9)
[2021-07-21 14:37] LABS: Magnesium 1.4 mg/dL (1.8-2.4)
--- NOTE | 2021-07-21 15:21 | RAD REPORT ---
EXAM DESCRIPTION: CT - Chest For Pe Angio - 07/21/2021 3:04 pm CLINICAL HISTORY: Chest pain COMPARISON: April 2021 TECHNIQUE: Dynamically enhanced axial 3 mm thick images of the chest were obtained during administra tion of <100> mL Isovue 370 IV contrast. Coronal and oblique reconstruction images were generated and reviewed. Exam utilizes a protocol for optimal evaluation of pulmonary arterial tree. Maximum intensity projections 3D imaging was utilized All CT scans are performed using dose optimization technique as appropriate and may include automated exposure control or mA/KV adjustment according to patient size. FINDINGS: A pulmonary embolus is not seen. A thoracic aortic aneurysm is not noted. A pleural effusion is not seen. A pericardial effusion is not seen. A lung consolidation is not present. Calcified granulomas left lung. Chronic elevation left hemidiaphragm. IMPRESSION: Negative for a pulmonary embolism.
--- NOTE | 2021-07-21 17:17 | EDPHYS ---
Physician Documentation [facility] Name: Luz Nick Age: 55 yrs Sex: Female : 1965 Arrival Date: 07/21/2021 Time: 13:08 Bed 12 Private MD: Irish Santana; Driss Maradiaga S ED Physician Gene Zaidi HPI: 07/21 13:25 This 55 yrs old Female presents to ER via Ambulatory with complaints of Chest jm Pain, Shortness Of Breath. 13:25 The patient or guardian reports chest pain that is located primarily in the substernal [facility] area. Onset: acutely, this morning. The pain does not radiate. Associated signs and symptoms: Pertinent positives: shortness of breath. The chest pain is described as aching, squeezing. Duration: The patient or guardian reports a single episode, that lasted 10 minute(s). Modifying factors: The symptoms are alleviated by nothing. the symptoms are aggravated by nothing. Patient currently denies chest pain. States that she still does have some dyspnea on exertion. Patient states she did have a catheterization 2 days ago performed by Dr. Caballero.. 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 - Social history:: Smoking status: Patient denies any tobacco usage or history of. Patient/guardian denies using alcohol. ROS: 13:25 Constitutional: Negative for fever, chills, and weight loss. jmm 13:25 Cardiovascular: Positive for chest pain. 13:25 Respiratory: Positive for shortness of breath. 13:25 All other systems are negative. Exam: 13:25 Constitutional: This is a well developed, well nourished patient who is awake, alert, jmm and in no acute distress. Head/Face: atraumatic. Eyes: EOMI, no conjunctival erythema appreciated ENT: Moist Mucus Membranes Neck: Trachea midline, Supple Chest/axilla: Normal chest wall appearance and motion. Cardiovascular: Regular rate and rhythm. No edema appreciated Respiratory: Normal respirations, no respiratory distress appreciated Abdomen/GI: Non distended, soft Back: Normal ROM Skin: General appearance color normal MS/ Extremity: Moves all extremities, no obvious deformities appreciated, no edema noted to the lower extremities Neuro: Awake and alert, normal gait Psych: Behavior is normal, Mood is normal, Patient is cooperative and pleasant Vital Signs: 13:10 BP 127 / 75; Pulse 85; Resp 18; Temp 98.1(TE); Pulse Ox 100% on R/A; Weight 93.44 kg; ld1 Height 5 ft. 8 in. (172.72 cm); Pain 0/10; 13:10 Body Mass Index 31.32 (93.44 kg, 172.72 cm) ld1 MDM: 13:46 Patient medically screened. tony 17:15 Data reviewed: vital signs, nurses notes. Counseling: I had a detailed discussion with tony the patient and/or guardian regarding: the historical points, exam findings, and any diagnostic results supporting the discharge/admit diagnosis, lab results, radiology results, the need for outpatient follow up, to return to the emergency department if symptoms worsen or persist or if there are any questions or concerns that arise at home. ED course: I discussed the patient with Dr. Maradiaga whom stated troponin levels are normal per post catheterization. Repeat troponin had declined. He recommended doubling beta-blockers and will follow with the patient in clinic.. 07/21 13:25 Order name: Basic Metabolic Panel; Complete Time: 14:40 07/21 13:25 Order name: CBC with Diff; Complete Time: 13:55 07/21 13:25 Order name: LFT's; Complete Time: 14:40 07/21 13:25 Order name: Magnesium; Complete Time: 14:40 07/21 13:25 Order name: NT PRO-BNP; Complete Time: 14:40 07/21 13:25 Order name: PT-INR; Complete Time: 14:03 07/21 13:25 Order name: Troponin HS; Complete Time: 14:40 07/21 13:25 Order name: XRAY Chest (1 view); Complete Time: 14:27 [facility] 07/21 13:25 Order name: EKG; Complete Time: 13:26 [facility] 07/21 13:25 Order name: Cardiac monitoring; Complete Time: 13:25 [facility] 07/21 13:25 Order name: EKG - Nurse/Tech; Complete Time: 13:25 [facility] 07/21 13:25 Order name: IV Saline Lock; Complete Time: 13:39 [facility] 07/21 14:41 Order name: CT Chest For PE Angio; Complete Time: 15:23 [facility] 07/21 15:24 Order name: Troponin High Sensitivity; Complete Time: 16:00 [facility] 07/21 13:25 Order name: Labs collected and sent; Complete Time: 13:39 [facility] 07/21 13:25 Order name: O2 Per Protocol; Complete Time: 13:25 [facility] 07/21 13:25 Order name: O2 Sat Monitoring; Complete Time: 13:25 ld1 Administered Medications: No medications were administered Disposition: 18:32 Co-signature as Attending Physician, Gene Zaidi MD. rn Disposition Summary: 07/21/21 17:16 Discharge Ordered Location: Home [facility] Condition: Stable jmm Diagnosis - Chest pain, unspecified jmm Followup: [facility] - With: Driss Maradiaga MD - When: 2 - 3 days - Reason: Recheck today's complaints, Continuance of care, Re-evaluation by your physician Discharge Instructions: - Discharge Summary Sheet jmm - Nonspecific Chest Pain, Adult jmm Forms: - Medication Reconciliation Form [facility] - Thank You Letter jmm - Antibiotic Education jmm - Prescription Opioid Use jmm Signatures: Dispatcher [employer] EDMilan Peralta PA PA Gene Mora MD MD rn Funmilayo Martinez RN RN ld1
--- NOTE | 2021-07-21 17:17 | ER ---
Nurse's Notes [facility] Name: Luz Nick Age: 55 yrs Sex: Female : 1965 Arrival Date: 07/21/2021 Time: 13:08 Bed 12 Private MD: Irish Santana; Driss Maradiaga S Diagnosis: Chest pain, unspecified Presentation: 07/21 13:10 Chief complaint: Patient states: I had 2 heart stents put in 2 days ago. I woke up ld1 today and had a sharp cramp in my left upper chest. Now I am having SOB when I walk a small distance. Coronavirus screen: At this time, the client does not indicate any symptoms associated with coronavirus-19. Ebola Screen: No symptoms or risks identified at this time. Initial Sepsis Screen: Does the patient meet any 2 criteria? No. Patient's initial sepsis screen is negative. Does the patient have a suspected source of infection? No. Patient's initial sepsis screen is negative. Risk Assessment: Do you want to hurt yourself or someone else? Patient reports no desire to harm self or others. Onset of symptoms was July 21, 2021. 13:10 Method Of Arrival: Ambulatory ld1 13:10 Acuity: GORDY 3 ld1 Triage Assessment: 13:12 General: Appears in no apparent distress. comfortable, Behavior is calm, cooperative, ld1 appropriate for age. Pain: Complains of pain in anterior aspect of left upper chest Pain does not radiate. Pain currently is 0 out of 10 on a pain scale. at worst was 5 out of 10 on a pain scale. Quality of pain is described as tightness. Neuro: Level of Consciousness is awake, alert, obeys commands, Oriented to person, place, time, situation. Cardiovascular: Capillary refill < 3 seconds Patient's skin is warm and dry. Rhythm is regular. Respiratory: Airway is patent Respiratory effort is even, unlabored. 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 - Social history:: Smoking status: Patient denies any tobacco usage or history of. Patient/guardian denies using alcohol. Screenin:42 Abuse screen: Denies threats or abuse. Denies injuries from another. Nutritional rodriguez screening: No deficits noted. Tuberculosis screening: No symptoms or risk factors identified. Fall Risk None identified. Assessment: 13:42 Pain: Pain began gradually. rodriguez 13:43 Pain: Complains of pain in chest. Cardiovascular: Reports chest pain, shortness of rodriguez breath, Chest pain. Vital Signs: 13:10 BP 127 / 75; Pulse 85; Resp 18; Temp 98.1(TE); Pulse Ox 100% on R/A; Weight 93.44 kg; ld1 Height 5 ft. 8 in. (172.72 cm); Pain 0/10; 13:10 Body Mass Index 31.32 (93.44 kg, 172.72 cm) ld1 ED Course: 13:08 Patient arrived in ED. as 13:08 Irish Santana MD is Private Physician. as 13:08 Driss Maradiaga MD is Private Physician. as 13:12 Triage completed. ld1 13:12 Arm band placed on right wrist. ld1 13:29 Milan Bowman PA is PHCP. [facility] 13:29 Gene Zaidi MD is Attending Physician. m 13:39 Inserted saline lock: 20 gauge in right antecubital area, using aseptic technique. ld1 Blood collected. 13:42 Patient has correct armband on for positive identification. Bed in low position. rodriguez teletypesetter monitor on. Pulse ox on. NIBP on. 13:42 No provider procedures requiring assistance completed. Patient maintains SpO2 rodriguez saturation greater than 95% on room air. 14:02 XRAY Chest (1 view) In Process Unspecified. EDMS 15:04 CT Chest For PE Angio In Process Unspecified. EDMS 17:16 Driss Maradiaga MD is Referral Physician. jmm 17:39 IV discontinued, intact, Pressure dressing applied. rodriguez Administered Medications: No medications were administered Outcome: 17:16 Discharge ordered by . jmm 17:39 Discharged to home rodriguez 17:39 Condition: good 17:39 Discharge instructions given to patient, family. 17:40 Patient left the ED. rodriguez Signatures: Dispatcher [employer] Milan Marshall PA PA jmm Martinez, Amelia as Dibbern, Lauren, RN RN ld1 Hedy Warner RN RN rodriguez
[2021-07-21 19:50] VITALS: BP 127/75; TEMP 98.1; O2SAT 100
--- NOTE | 2021-07-23 08:06 | EKG ---
Test Date: 2021-07-21 Test Time: 13:19:44 Resident Programs Assistant: DAYANA MEASUREMENT RESULTS: Intervals: Rate: 78 CO: 166 QRSD: 64 QT: 386 QTc: 440 [place]: P: 33 CO: 166 QRS: -13 T: 76 INTERPRETIVE STATEMENTS: Normal sinus rhythm Normal ECG Compared to ECG 07/16/2021 14:05:50 No significant changes Electronically Signed On 07-23-21 08:03:14 [employer] by Driss Maradiaga
== END 2021-07-21 17:40 | disposition home or self-care (01) ==
LOC: ER 13:07
DX: R07.9 Chest pain, unspecified (principal); E11.9 Type 2 diabetes mellitus without complications; I10 Essential (primary) hypertension; Z79.4 Long term (current) use of insulin; Z88.0 Allergy status to penicillin; Z95.818 Presence of other cardiac implants and grafts
CPT/HCPCS: 93005; 85025; 80048; 36415; 83735; 85610; 80076; 84484 ×2; 83880; 71275; 71045; 99285; Q9967